=== PATIENT | male | born 1955 | race Caucasian/White ===

== ENCOUNTER 2017-05-25 19:13 | Observation (INO) | payer BC, SELFPAY ==
[2017-05-25 19:13] VITALS: BP 157/123; PULSE 117; RESP 16; TEMP 36.3; O2SAT 97; BMI 33.5
--- NOTE | 2017-05-25 19:23 | CT_ITS ---
STUDY: CT ABDOMEN AND PELVIS WITH CONTRAST REASON FOR EXAM: Male, 62 years old. Right lower quadrant pain and vomiting since last night. RADIATION DOSAGE (If Supplied By Facility): CTDIvol = ( 18.72 ) mGy, DLP = ( 1523.99 ) mGycm TECHNIQUE: Transaxial images were obtained from the dome of the diaphragm to the symphysis pubis with oral contrast. 100 ml of Isovue 300 contrast was administered. Sagittal and coronal images were reconstructed. Individualized dose optimization techniques were used for this CT. COMPARISON: None. FINDINGS: Bibasilar atelectatic changes. The visualized portions of the heart are within normal limits. Fatty liver Normal gallbladder and extrahepatic biliary system. Normal spleen. Normal pancreas. Normal bilateral adrenal glands. Normal right kidney. Normal left kidney. Normal visualized stomach. Normal small intestine. Diverticulosis of the colon without acute diverticulitis. Enlarged fluid-filled appendix with periappendiceal edema and nonloculated fluid of the right paracolic gutter. Minimal calcific plaque of the aorta. Normal inferior vena cava. Normal retroperitoneum. Normal urinary bladder. Minimal fatty umbilical hernia. Mild degenerative changes of the lower lumbar spine. CT/Abdomen/Pelvis WITH Contrast IMPRESSION: Enlarged appendix with periappendiceal edema consistent with acute appendicitis without abscess formation or free air. No additional acute abdominal or pelvic findings. Fatty liver. Minimal calcific plaque of the aorta. Minimal fatty umbilical hernia. Bibasilar pulmonary atelectatic changes. N.B. : The above information has been verbally conveyed by Sarah Beth Gordon MD to , Covering Physician, on 05/25/2017 22:52:54 (ET). Electronically Signed: Sarah Beth Gordon MD at 21:46 EST , Service support , N.B. : The above information has been verbally conveyed by Sarah Beth Gordon MD to , Covering Physician, on 05/25/2017 22:52:54 (ET).
--- NOTE | 2017-05-25 19:24 | ED.VISSUMM ---
- ER Visit Summary Date of Service: 05/25/17 Chief Complaint: Right lower quadrant abdominal pain History of Present Illness: The patient is a 62 M who is otherwise healthy presents to the emergency department with abdominal pain. The patient symptoms began last night. He states that he had dull ache like a band across his abdomen. He is mildly nauseated. He states that he ate and it seemed to make the pain worse. The pain is since migrated towards his right lower quadrant. He has had 2 episodes of vomiting today. He denies any fevers but does move to some chills. He has had no diarrhea. The patient has had no prior abdominal surgery, but has had lithotripsy for kidney stone. He states this does feel different. There is no pain in the testicles. He denies any dysuria or hematuria. Physical Examination: Vital signs reviewed General: Well-nourished, well-developed Head: Normocephalic, atraumatic Eyes: Pupils equal and reactive, extraocular muscles intact Neck, supple, no lymphadenopathy Heart: Regular rate and rhythm Respiratory: No distress, clear bilaterally Abdomen: Soft, tender with voluntary guarding in the right lower quadrant, nondistended, no peritoneal signs Back: Nontender Extremities: Nontender, no edema, no cords Skin: Normal color no rash Neuro: Alert and oriented, no focal or lateralizing deficits Test Results: [] Emergency Department Course and Treatment: The patient has signs and symptoms that are consistent with acute appendicitis. His labs do demonstrate psychosis. Patient underwent CT which based on my read is concerning for acute appendicitis. I did discuss the labs and results with Dr. Mack who agrees with plan for IV antibiotics and she will take the patient to the operating room for laparoscopic evaluation for acute appendicitis. Patient was covered with IV Zosyn. He will be taken to the operating room by surgery due to acute appendicitis. Treatment Plan: [] Disposition: Admit Impression: 1. Acute appendicitis This note was generated with [employer] dictation software. It may contain incorrect words, spelling, and punctuation that were not noted in review of the chart prior to signing ED Disposition - Plan for ED Patient: Chief Complaint: Abd Pain
[2017-05-25] MEDS: 0.9% Normal Saline 1,000 ML 1000 ML IV (19:47)
[2017-05-25] MEDS: Ondansetron 4 MG/2 ML Vial IV (19:49)
[2017-05-25 20:07] LABS: Absolute Lymphocyte Count 1.84 X10^3/ul (0.83-4.51); Absolute Neutrophil Count 14.6 X10^3/uL (2.0-7.7); Basophil# 0.01 X10^3/uL; Basophil% 0.1 % (0-1); Hematocrit 47.7 % (40-54); Hemoglobin 16.8 g/dl (13.0-16.5); Lymphocyte # 1.84 X10^3/ul (4.0); Lymphocyte % 10.2 % (19-41); Mean Corp Hgb Conc 35.2 g/gl (32-36); Mean Corpuscular Hgb 31.5 pg (27.0-32.0); Mean Corpuscular Volume 89.5 fL (80-94); Mean Platelet Vol. 10.2 fl (6.2-12.0); Monocyte% 8.9 % (0-10); Neutrophil # 14.55 X10^3/uL (2.7-7.7); Neutrophil % 80.6 % (47-70); Platelet Count 189 K/mm3 (150-450); RBC Distribution Width CV 12.8 % (11.6-14.6); RBC Distribution Width SD 41.5 fl (35.1-43.9); Red Blood Count 5.33 M/mm3 (4.6-6.2)
[2017-05-25 20:08] LABS: Differential Indicated SCAN CRITERIA MET; POSITIVE COUNT YES; POSITIVE DIFFERENTIAL YES; POSITIVE MORPHOLOGY NO
[2017-05-25 20:19] LABS: AST(SGOT) 13 U/L (15-37); Alanine Aminotransfer ALT/SGPT 41 U/L (16-61); Alkaline Phosphatase 95 U/L (45-117); Anion Gap 8 (5-15); BUN 15 mg/dL (7-18); BUN/Creat Ratio 16.3 RATIO (10-20); Calcium,Total 9.2 mg/dL (8.5-10.1); Chloride 104 mmol/L (98-107); Creatinine, Serum 0.92 mg/dL (0.70-1.30); EST Glomerular Filtration Rate 88 mL/min (>60); Est Glom Filt Rate - Afr Amer 107 mL/min (>60); Estimated Creatinine Clearance 87.53 ml/min; Globulin 4.1 g/dL (2.2-4.2); Glucose 118 mg/dL (74-106); Potassium 3.5 mmol/L (3.5-5.1); Protein, Total 8.1 g/dL (6.4-8.2); Sodium Level 139 mmol/L (136-145)
[2017-05-25 20:24] LABS: Anisocytosis RARE; Platelet Estimate ADEQUATE (ADEQ)
[2017-05-25] MEDS: HYDROmorphone 1 MG/ML Syringe IV (21:19)
[2017-05-25 21:21] VITALS: BP 148/80; PULSE 95; RESP 14; O2SAT 99
--- NOTE | 2017-05-25 21:36 | RAD_ITS ---
STUDY: X-RAY CHEST REASON FOR EXAM: Male, 62 years old. Cough. TECHNIQUE: 1 view COMPARISON: None. FINDINGS: Bibasilar linear atelectatic change, right greater than left. Negative for other substantial consolidation or pleural effusion. Normal size heart. Normal mediastinum and laisha. Normal visualized pulmonary arteries. There is atherosclerotic tortuosity of the aortic arch and descending thoracic aorta. There are diffuse degenerative changes of the visualized thoracic spine. Normal visualized ribs, clavicles, and shoulders. There is no demonstrated abnormality of the visualized soft tissue structures of the upper abdomen. RAD/Chest 1 View IMPRESSION: Bibasilar atelectatic changes, right greater than left without other acute cardiopulmonary findings. Electronically Signed: Sarah Beth Gordon MD at 22:35 EST , Service support ,
--- NOTE | 2017-05-25 21:36 | EKG12_ITS ---
Test Reason : Blood Pressure : / mmHG Vent. Rate : 096 BPM Atrial Rate : 096 BPM P-R Int : 178 ms QRS Dur : 104 ms QT Int : 366 ms P-R-T Axes : 034 049 -06 degrees QTc Int : 462 ms Normal sinus rhythm Nonspecific T wave abnormality Prolonged QT Abnormal ECG Confirmed by DAXA ZHU, GUY ([id number]), videotape editor TOYIN DEY ([id number]) on 05/29/2017 4:21:11 PM Referred By: Rosalba Mack Confirmed By:GUY MITTAL MD
[2017-05-25 21:58] LABS: Bacteria 0 SEEN /hpf (None Seen); Mucous, Urine 0 SEEN /hpf (<or=2+); Red Blood Cells-Urine 0 SEEN /hpf (0-5); Squamous Epithelial Cells - UA 0 SEEN /hpf (0-5); White Blood Cells 0 SEEN /hpf (0-5)
[2017-05-25 22:02] LABS: Color, Urine Yellow (Yellow); Glucose, Dipstick Normal (Normal); Ketone-Dipstick Negative (Negative); Leukocyte Esterase-Dipstick Negative /ul (Negative); Nitrite-Dipstick Negative (Negative); Occult Blood-Urine 25 /ul (Negative); Protein-Dipstick Negative (Negative); Urine Bilirubin Dipstick Negative (Negative); Urine Clarity Clear (Clear); Urine Urobilinogen Normal (Normal); Urine pH 6.5 (5.0 - 8.0)
--- NOTE | 2017-05-25 22:18 | PCM.HP.STD ---
History of Present Illness Date of Admission: 05/25/17 The patient is a 62 year old M presented to the ER due to right lower quadrant pain since this morning. However he he did have a pressure in his abdomen starting yesterday evening about 7 PM which lasted all night but did move to the right lower quadrant this morning. He did have nausea and vomiting. Denies fevers chills ?1. Has normal bowel movement this morning. Patient last ate at 7 PM last night. He denies any history of previous pain like this. He has never had a colonoscopy before. sister just had surgery for colon cancer at age 68. Past Medical History Allergies No Known Allergies Allergy (Verified 05/25/17 19:15) Home Medications: Ambulatory Orders Medication Instructions Recorded Hydrocodone Bitart/Apap 5-325 1 - 2 tablet PO Q4H PRN PRN 3 Days 05/26/17 [Jet 5MG-325MG] #20 tablet Surgical History: - - Right knee, lithotripsy Lives: Spouse/ Significant Other Smoking Status: Former smoker - *Family History Maternal History Items: No pertinent history Review of Systems Constitutional: Reports: Anorexia. Denies: Chills, Fever Eyes: Denies: Blurred vision HEENT: Denies: Difficulty Swallowing Cardiovascular: Denies: Chest Pain Respiratory: Denies: Shortness of Breath Gastrointestinal: Reports: Abdominal Pain, Nausea. Denies: Constipation, Vomiting Genitourinary: Denies: Dysuria Skin: Denies: Rash Neurological: Denies: Numbness, Tingling Psychiatric: Denies: Anxiety, Depression Hematologic/ Lymphatic: Denies: Easy Bruising, Easy Bleeding VTE Information - Inpt Only VTE Present on Admission: Yes VTE Mechan Device Prophylaxis: SCD's VTE Pharm Prophylaxis ordered?: No Reason prophylaxis not ordered:: Treatment Not Indicated - Physical Exam General: Alert, Oriented x3, Cooperative, No apparent distress HEENT: Atraumatic, Normocephalic Lungs: Clear to auscultation Cardiovascular: Regular rate, Regular Rhythm Abdomen: Soft, Non-Distended, Passing Flatus, Tender - Right lower quadrant, no rebound or guarding Extremities: No clubbing, No cyanosis, No edema Skin: No rashes Neurological: Cranial nerves II-XII grossly intact Psych/Mental Status: Normal Affect Vital Signs Temp Pulse Resp BP Pulse Ox 97.3 F L 95 14 148/80 H 99 05/25/17 19:13 05/25/17 21:21 05/25/17 21:21 05/25/17 21:21 05/25/17 21:21 Oxygen Delivery Method Room Air Weight: 240 lb Body Mass Index (BMI) 33.5 Laboratory Tests Past 24 Hrs 05/25/17 05/25/17 05/25/17 19:30 19:40 21:45 WBC 18.0 H RBC 5.33 Hgb 16.8 H Hct 47.7 MCV 89.5 MCH 31.5 MCHC 35.2 RDW 12.8 RDW Differential 41.5 Plt Count 189 MPV 10.2 Immature Gran % (Auto) 0.200 Neut % (Auto) 80.6 H Lymph % (Auto) 10.2 L [place] % (Auto) 8.9 Eos % (Auto) 0.0 Baso % (Auto) 0.1 Absolute Neuts (auto) 14.6 H Absolute Lymphs (auto) 1.84 Total Counted Not Reportable Differential Comment SEE COMMENT Diff Path Review May foll Platelet Estimate ADEQUATE Anisocytosis RARE Sodium 139 Potassium 3.5 Chloride 104 Carbon Dioxide 27.0 Anion Gap 8 BUN 15 Creatinine 0.92 Estim Creat Clear Calc 87.53 Est GFR (MDRD) Af Amer 107 Est GFR (MDRD) Non-Af 88 BUN/Creatinine Ratio 16.3 Glucose 118 H Calcium 9.2 Total Bilirubin 0.80 AST 13 L ALT 41 Alkaline Phosphatase 95 Total Protein 8.1 Albumin 4.0 Globulin 4.1 Albumin/Globulin Ratio 1.0 Urine Color Yellow Urine Clarity Clear Urine pH 6.5 Ur Specific [place] 1.010 Urine Protein Negative Urine Glucose (UA) Normal Urine Ketones Negative Urine Occult Blood 25 H Urine Nitrite Negative Urine Bilirubin Negative Urine Urobilinogen Normal Ur Leukocyte Esterase Negative Urine RBC Pending Urine WBC Pending Ur Squamous Epith Cells Pending Urine Bacteria Pending Urine Mucus Pending Assessment/Plan 62-year-old male with acute appendicitis and leukocytosis of 18 1. Discussed procedure laparoscopic appendectomy, possible open, possible bowel resection along with the risk but not limited to bleeding, infection/abscess, injury to another organ (small bowel, colon, etc.), adhesion, hernia at incision sites, and anesthesia. Patient has expressed understanding and had no further questions at this time. Rosalba Mack M.D. Pager: [phone] [facility] [address], [address] [place] [address] Office: [phone]
--- NOTE | 2017-05-25 22:21 | HP.PCM_ITS ---
History of Present Illness Date of Admission: 05/25/17 The patient is a 62 year old M presented to the ER due to right lower quadrant pain since this morning. However he he did have a pressure in his abdomen starting yesterday evening about 7 PM which lasted all night but did move to the right lower quadrant this morning. He did have nausea and vomiting. Denies fevers chills ?1. Has normal bowel movement this morning. Patient last ate at 7 PM last night. He denies any history of previous pain like this. He has never had a colonoscopy before. sister just had surgery for colon cancer at age 68. Past Medical History Allergies No Known Allergies Allergy (Verified 05/25/17 19:15) Home Medications: Ambulatory Orders Medication Instructions Recorded Hydrocodone Bitart/Apap 5-325 1 - 2 tablet PO Q4H PRN PRN 3 Days 05/26/17 [[place] 5MG-325MG] #20 tablet Surgical History: - - Right knee, lithotripsy Lives: Spouse/ Significant Other Smoking Status: Former smoker - *Family History Maternal History Items: No pertinent history Review of Systems Constitutional: Reports: Anorexia. Denies: Chills, Fever Eyes: Denies: Blurred vision HEENT: Denies: Difficulty Swallowing Cardiovascular: Denies: Chest Pain Respiratory: Denies: Shortness of Breath Gastrointestinal: Reports: Abdominal Pain, Nausea. Denies: Constipation, Vomiting Genitourinary: Denies: Dysuria Skin: Denies: Rash Neurological: Denies: Numbness, Tingling Psychiatric: Denies: Anxiety, Depression Hematologic/ Lymphatic: Denies: Easy Bruising, Easy Bleeding VTE Information - Inpt Only VTE Present on Admission: Yes VTE Mechan Device Prophylaxis: SCD's VTE Pharm Prophylaxis ordered?: No Reason prophylaxis not ordered:: Treatment Not Indicated - Physical Exam General: Alert, Oriented x3, Cooperative, No apparent distress HEENT: Atraumatic, Normocephalic Lungs: Clear to auscultation Cardiovascular: Regular rate, Regular Rhythm Abdomen: Soft, Non-Distended, Passing Flatus, Tender - Right lower quadrant, no rebound or guarding Extremities: No clubbing, No cyanosis, No edema Skin: No rashes Neurological: Cranial nerves II-XII grossly intact Psych/Mental Status: Normal Affect Vital Signs Temp Pulse Resp BP Pulse Ox 97.3 F L 95 14 148/80 H 99 05/25/17 19:13 05/25/17 21:21 05/25/17 21:21 05/25/17 21:21 05/25/17 21:21 Oxygen Delivery Method Room Air Weight: 240 lb Body Mass Index (BMI) 33.5 Laboratory Tests Past 24 Hrs 05/25/17 05/25/17 05/25/17 19:30 19:40 21:45 WBC 18.0 H RBC 5.33 Hgb 16.8 H Hct 47.7 MCV 89.5 MCH 31.5 MCHC 35.2 RDW 12.8 RDW Differential 41.5 Plt Count 189 MPV 10.2 Immature Gran % (Auto) 0.200 Neut % (Auto) 80.6 H Lymph % (Auto) 10.2 L [place] % (Auto) 8.9 Eos % (Auto) 0.0 Baso % (Auto) 0.1 Absolute Neuts (auto) 14.6 H Absolute Lymphs (auto) 1.84 Total Counted Not Reportable Differential Comment SEE COMMENT Diff Path Review May foll Platelet Estimate ADEQUATE Anisocytosis RARE Sodium 139 Potassium 3.5 Chloride 104 Carbon Dioxide 27.0 Anion Gap 8 BUN 15 Creatinine 0.92 Estim Creat Clear Calc 87.53 Est GFR (MDRD) Af Amer 107 Est GFR (MDRD) Non-Af 88 BUN/Creatinine Ratio 16.3 Glucose 118 H Calcium 9.2 Total Bilirubin 0.80 AST 13 L ALT 41 Alkaline Phosphatase 95 Total Protein 8.1 Albumin 4.0 Globulin 4.1 Albumin/Globulin Ratio 1.0 Urine Color Yellow Urine Clarity Clear Urine pH 6.5 Ur Specific [place] 1.010 Urine Protein Negative Urine Glucose (UA) Normal Urine Ketones Negative Urine Occult Blood 25 H Urine Nitrite Negative Urine Bilirubin Negative Urine Urobilinogen Normal Ur Leukocyte Esterase Negative Urine RBC Pending Urine WBC Pending Ur Squamous Epith Cells Pending Urine Bacteria Pending Urine Mucus Pending Assessment/Plan 62-year-old male with acute appendicitis and leukocytosis of 18 1. Discussed procedure laparoscopic appendectomy, possible open, possible bowel resection along with the risk but not limited to bleeding, infection/ abscess, injury to another organ (small bowel, colon, etc.), adhesion, hernia at incision sites, and anesthesia. Patient has expressed understanding and had no further questions at this time. Rosalba Mack M.D. Pager: [phone] [facility] [address], [address] [place] [address] Office: [phone]
[2017-05-25 22:30] VITALS: BP 149/80; PULSE 90; RESP 14; TEMP 36.4; O2SAT 99; BMI 33.5
--- NOTE | 2017-05-25 22:50 | APP_PTH ---
PATIENT: SARAH PALMER LOC: MS3 U#:[id number] AGE/SX: 62/M ROOM: [facility] [place] RE05/25/[address]: Dr. Rosalba Mack MD : [id number] BED: 1 DIS: 05/26/2017 SPEC #: [id number] RECD: 05/28/17 08:30 STATUS: BENNY RETip #: [id number] LISA: 05/25/17 22:[address]: Rosalba Mack DEPT: SURGICAL PATHOLOGY RECD BY: Sarah Stacy ENTERED: 05/28/17 09:24 SP TYPE: APPENDIX OTHR DR: Dr. David Wagoner, DO Tissues: Appendix, NOS Procedures: Surgery Specimen Level III HEADER OPERATION: Laparoscopic appendectomy PRE-OP DIAGNOSIS: Acute appendicitis TISSUE SUBMITTED: Appendix MICROSCOPIC DIAGNOSIS Appendix, appendectomy: Acute necrotizing appendicitis. Acute serositis. AM:janie 05/29/17 MICROSCOPIC DESCRIPTION Slides are reviewed. GROSS DESCRIPTION Received is one container labeled with the patient's name and designated appendix. The specimen consists of a V-shaped appendix measuring 8 cm in length and up to 1 cm in average diameter. The attached periappendiceal adipose tissue measures up to 2 cm in width. The serosa is congested and covered with granda, purulent exudate. The mucosa is congested and hemorrhagic. The lumen does not contain any fecalith. Hand Outside Cutter sections are submitted in two cassettes. / SJ:janie 05/28/17 TC:2 CPT: 09977
--- NOTE | 2017-05-25 23:52 | PCM.OPRPT ---
Report of Operation Date of Procedure: 05/25/17 Pre-Operative Diagnosis: Acute appendicitis Post-Operative Diagnosis: Acute necrotizing appendicitis Surgery/Procedure Performed:: Laparoscopic appendectomy die designer: Kady Sorto Type of Anesthesia:: General Anesthesiologist: Ji Jaimes Special Medications: Zosyn 4.5 g IV ?1 given previously for acute appendicitis in the ER Specimen's removed: Appendix Estimated Blood Loss (mL): <10 cc Fluids Replaced: 500 cc Description of Procedure: Indications: 62-year-old male presented to the ER with new right lower quadrant pain yesterday evening. On workup he was found to have acute appendicitis on CT and a leukocytosis of 18. Patient was started on antibiotics in the ER for acute appendicitis-Zosyn 4.5 g IV ?1 Description of the procedure: The patient was placed on operating table in supine position. General anesthesia was induced. A timeout was completed verifying correct patient, procedure, sacrum position and special, prior to beginning procedure. A Stratton catheter and orogastric tube placed. Abdomen was prepped and draped in usual sterile fashion. Incision was made in the natural skin line above the umbilicus with a 15 blade scalpel. The fascia was elevated and incised. Entry into the peritoneum was confirmed visually and no bowel was noted in the vicinity of the incision. The Campbell trocar was placed under direct vision. Abdomen insufflated with a pressure of 12-15 mmHg. Patient tolerated insertion well. The scope was inserted and the abdomen inspected. No injuries from initial trocar placement were noted. Minimal amount of fluid was seen in the right lower quadrant. An direct visualization 2 -5 mm trocars were placed one above the symptoms his pubis and below the hairline and one in the left lower quadrant lateral to the rectus muscle. Care is taken to avoid injury to the bladder and inferior epigastric vessels. The table was placed in Trendelenburg position with the right side elevated. The appendix was grasped with atraumatic grasper and elevated. It was noted to be inflamed and necrotic centrally, no obvious perforation grossly. A window was developed in the mesoappendix at the point between the base of the appendix and the cecum. An endoscopic 45 mm linear cutting stapler blue load was then used to divide and staple the base of the appendix. The LigaSure was used to divide the mesoappendix. The appendix was withdrawn into the Campbell trocar after being placed endoscopically retrieval bag. Appendix was sent to pathology. The appendiceal stump was then irrigated and hemostasis was assured. Fluid was suctioned, no other pathology was identified. Secondary trochars were removed under direct visualization. No bleeding was noted trocar sites. The laparoscope withdrawn and the umbilical trocar removed. The abdomen was allowed to collapse. Local anesthesia of 15 mL of 0.5% Marcaine was used at the incision sites. The umbilical trocar site was closed with the [id number] 0 Vicryl suture. The skin was closed up to clear sutures of 4-0 Monocryl and Steri-Strips. The patient was extubated. The patient tolerated the procedure well and was taken to the postanesthesia care unit in satisfactory condition. - Complications none
[2017-05-25] MEDS: Bupivacaine 0.25% 30 ML Vial (23:53)
--- NOTE | 2017-05-25 23:56 | OP.PCM_ITS ---
Report of Operation Date of Procedure: 05/25/17 Pre-Operative Diagnosis: Acute appendicitis Post-Operative Diagnosis: Acute necrotizing appendicitis Surgery/Procedure Performed:: Laparoscopic appendectomy guest request runner: Kady Sorto Type of Anesthesia:: General Anesthesiologist: Ji Jaimes Special Medications: Zosyn 4.5 g IV ?1 given previously for acute appendicitis in the ER Specimen's removed: Appendix Estimated Blood Loss (mL): <10 cc Fluids Replaced: 500 cc Description of Procedure: Indications: 62-year-old male presented to the ER with new right lower quadrant pain yesterday evening. On workup he was found to have acute appendicitis on CT and a leukocytosis of 18. Patient was started on antibiotics in the ER for acute appendicitis-Zosyn 4.5 g IV ?1 Description of the procedure: The patient was placed on operating table in supine position. General anesthesia was induced. A timeout was completed verifying correct patient, procedure, sacrum position and special, prior to beginning procedure. A Stratton catheter and orogastric tube placed. Abdomen was prepped and draped in usual sterile fashion. Incision was made in the natural skin line above the umbilicus with a 15 blade scalpel. The fascia was elevated and incised. Entry into the peritoneum was confirmed visually and no bowel was noted in the vicinity of the incision. The Campbell trocar was placed under direct vision. Abdomen insufflated with a pressure of 12-15 mmHg. Patient tolerated insertion well. The scope was inserted and the abdomen inspected. No injuries from initial trocar placement were noted. Minimal amount of fluid was seen in the right lower quadrant. An direct visualization 2 -5 mm trocars were placed one above the symptoms his pubis and below the hairline and one in the left lower quadrant lateral to the rectus muscle. Care is taken to avoid injury to the bladder and inferior epigastric vessels. The table was placed in Trendelenburg position with the right side elevated. The appendix was grasped with atraumatic grasper and elevated. It was noted to be inflamed and necrotic centrally, no obvious perforation grossly. A window was developed in the mesoappendix at the point between the base of the appendix and the cecum. An endoscopic 45 mm linear cutting stapler blue load was then used to divide and staple the base of the appendix. The LigaSure was used to divide the mesoappendix. The appendix was withdrawn into the Campbell trocar after being placed endoscopically retrieval bag. Appendix was sent to pathology. The appendiceal stump was then irrigated and hemostasis was assured. Fluid was suctioned, no other pathology was identified. Secondary trochars were removed under direct visualization. No bleeding was noted trocar sites. The laparoscope withdrawn and the umbilical trocar removed. The abdomen was allowed to collapse. Local anesthesia of 15 mL of 0.5 % Marcaine was used at the incision sites. The umbilical trocar site was closed with the [id number] 0 Vicryl suture. The skin was closed up to clear sutures of 4-0 Monocryl and Steri-Strips. The patient was extubated. The patient tolerated the procedure well and was taken to the postanesthesia care unit in satisfactory condition. - Complications none
[2017-05-26] VITALS (9 sets, daily range): BP systolic 118–163; BP diastolic 59–85; PULSE 92–112; RESP 16–18; TEMP 36.4–37.2; O2SAT 93–98; BMI 33.5; BMI 35.3
[2017-05-26] MEDS: Lactated Ringers 1,000 ML 125 ML IV (01:15)
[2017-05-26] MEDS: Piperacil/Tazobactam 3.375 GM/50 ML ML IV (05:07)
--- NOTE | 2017-05-26 08:04 | PCM.PN.SRG ---
Subjective: Patient is doing well, tolerating regular breakfast, states that the abdomen is sore but the pain from before surgery is gone he has not needed any pain meds. - Physical Exam General: Alert, Oriented x3, Cooperative, No apparent distress Abdomen: Soft, Non-Distended, Tender - Appropriate near incisions, incision was dressed, - - No guarding or rebound Vital Signs Temp Pulse Resp BP Pulse Ox 98.6 F 92 18 146/85 H 94 05/26/17 07:55 05/26/17 07:55 05/26/17 07:55 05/26/17 07:55 05/26/17 07:55 Oxygen Flow Rate 2 Oxygen Delivery Method Room Air Weight: 253 lb 1.451 oz Body Mass Index (BMI) 35.3 Intake and Output for Last 24 Hours 05/24/17 05/25/17 05/26/17 23:59 23:59 23:59 Intake Total 1576 / 1576 Output Total 600 / 600 Balance 976 / 976 Assessment/Plan 62-year-old male status post endoscopic appendectomy postop day 1 1. Patient tolerated regular diet, no need for pain meds currently per patient. 2. Encourage ambulation 3. Okay for discharge after patient tolerated diet pain control and ambulating and vital signs remained stable. 4. Will follow-up in 2 weeks and also discussed future colonoscopy as patient has not had a colonoscopy in his sister at age 68 was just diagnosed with colon cancer and had it removed. Discussed colonoscopy in the future and patient was agreeable to the idea currently. Rosalba Mack M.D. Pager: [phone] [facility] [address] [place] [address], [address] [place] [address] Office: [phone]
[2017-05-26] MEDS: Docusate Sodium 100 MG Capsule PO (08:05)
--- NOTE | 2017-05-26 08:07 | PN.SURG_ITS ---
Subjective: Patient is doing well, tolerating regular breakfast, states that the abdomen is sore but the pain from before surgery is gone he has not needed any pain meds. - Physical Exam General: Alert, Oriented x3, Cooperative, No apparent distress Abdomen: Soft, Non-Distended, Tender - Appropriate near incisions, incision was dressed, - - No guarding or rebound Vital Signs Temp Pulse Resp BP Pulse Ox 98.6 F 92 18 146/85 H 94 05/26/17 07:55 05/26/17 07:55 05/26/17 07:55 05/26/17 07:55 05/26/17 07:55 Oxygen Flow Rate 2 Oxygen Delivery Method Room Air Weight: 253 lb 1.451 oz Body Mass Index (BMI) 35.3 Intake and Output for Last 24 Hours 05/24/17 05/25/17 05/26/17 23:59 23:59 23:59 Intake Total 1576 / 1576 Output Total 600 / 600 Balance 976 / 976 Assessment/Plan 62-year-old male status post endoscopic appendectomy postop day 1 1. Patient tolerated regular diet, no need for pain meds currently per patient. 2. Encourage ambulation 3. Okay for discharge after patient tolerated diet pain control and ambulating and vital signs remained stable. 4. Will follow-up in 2 weeks and also discussed future colonoscopy as patient has not had a colonoscopy in his sister at age 68 was just diagnosed with colon cancer and had it removed. Discussed colonoscopy in the future and patient was agreeable to the idea currently. Rosalba Mack M.D. Pager: [phone] [facility] [address] [place] [address], [address] [place] [address] Office: [phone]
--- NOTE | 2017-05-26 08:07 | PCM.DC.APPY ---
Discharge Diet: No Restrictions Discharge Activity: May not drive while taking narcotic pain medications. May shower in (days): 1 Lifting Restrictions: no lifting > 20 lbs for 4 weeks Call your doctor if your incision/area has: Continuous Slow Oozing, Sudden Increased Bleeding, Increased Pain/ Swelling, Increased Redness, Foul Smelling Discharge, Swelling at the incision site Call your doctor if you observe: Fever of 101 or Higher Remove Dressing in (days):: 1 Additional Instructions: To avoid constipation take Colace daily for the first few days or while taking pain meds. The [place] does contain Tylenol still do not take any Tylenol while taking the [place]. However he may take ibuprofen or Advil in between doses but make sure he take with food. If he did not have a bowel movement and a day then take a couple doses of MiraLAX to see if that has any results. If no results after taking a few doses of MiraLAX then proceeded to take half a bottle of magnesium citrate if no results after 6 hours and take the other half. Medications to take at Discharge Hydrocodone Bitart/Apap 5-325 [[place] 5MG-325MG] 1 - 2 tablet PO Q4H PRN PRN 3 Days #20 tablet 05/26/17 Allergies/Adverse Reactions: Allergies No Known Allergies Allergy (Verified 05/25/17 19:15) The following prescriptions were given: Hydrocodone Bitart/Apap 5-325 [[place] 5MG-325MG] 1 - 2 tablet PO Q4H PRN PRN 3 Days #20 tablet PRN Reason: Pain Primary Care Physician: David Wagoner DO [Primary Care Provider] - Please Follow Up With: Rosalba Mack MD - After 5:00/weekends call [phone] with any concerns When: Call the office [phone] on Sunday for follow-up appointment in 2 weeks Proposed Discharge Date: 05/26/17
--- NOTE | 2017-05-26 08:10 | DCINST_ITS ---
Discharge Diet: No Restrictions Discharge Activity: May not drive while taking narcotic pain medications. May shower in (days): 1 Lifting Restrictions: no lifting > 20 lbs for 4 weeks Call your doctor if your incision/area has: Continuous Slow Oozing, Sudden Increased Bleeding, Increased Pain/ Swelling, Increased Redness, Foul Smelling Discharge, Swelling at the incision site Call your doctor if you observe: Fever of 101 or Higher Remove Dressing in (days):: 1 Additional Instructions: To avoid constipation take Colace daily for the first few days or while taking pain meds. The [place] does contain Tylenol still do not take any Tylenol while taking the [place]. However he may take ibuprofen or Advil in between doses but make sure he take with food. If he did not have a bowel movement and a day then take a couple doses of MiraLAX to see if that has any results. If no results after taking a few doses of MiraLAX then proceeded to take half a bottle of magnesium citrate if no results after 6 hours and take the other half. Medications to take at Discharge Hydrocodone Bitart/Apap 5-325 [[place] 5MG-325MG] 1 - 2 tablet PO Q4H PRN PRN 3 Days #20 tablet 05/26/17 Allergies/Adverse Reactions: Allergies No Known Allergies Allergy (Verified 05/25/17 19:15) The following prescriptions were given: Hydrocodone Bitart/Apap 5-325 [[place] 5MG-325MG] 1 - 2 tablet PO Q4H PRN PRN 3 Days #20 tablet PRN Reason: Pain Primary Care Physician: David Wagoner DO [Primary Care Provider] - Please Follow Up With: Rosalba Mack MD - After 5:00/weekends call [phone] with any concerns When: Call the office [phone] on Sunday for follow-up appointment in 2 weeks Proposed Discharge Date: 05/26/17
[2017-05-26] MEDS: HYDROcodone Bitartrate/Apap 5/325 Tablet PO (09:26)
[2017-05-28 13:16] LABS: Pathologist Review Reviewed
== END 2017-05-26 09:55 | disposition home or self-care (01) ==
LOC: ED 21:55 → SDC 22:09 → MS3 22:09 → SDC 05-26 02:21
PROVIDERS: Admitting Provider Surgery; Emergency Provider Emergency Medicine; Family Provider Family Medicine; PCP Family Medicine; Visit Provider Surgery
PROC: 0DTJ4ZZ Resection of Appendix, Percutaneous Endoscopic Approach (ICD-10-PCS; CPT 44970; principal; 2017-05-25 22:30)
DX: K35.80 Unspecified acute appendicitis (principal); Z87.891 Personal history of nicotine dependence
CPT/HCPCS: 44970; 71045; 74177; 80053; 81001; 85025; 88304; 93005; 96361; 96365; 96366; 96375; 99218; 99282; J3010; J7030; J7120; Q9967; A4216; G0378; J2405

== ENCOUNTER → 2017-09-13 16:32 | Outpatient (CLI) | payer BC, SELFPAY ==
[2017-09-13 17:45] LABS: Erythrocyte Sedimentation Rate 24 mm/hr (0-20)
[2017-09-13 18:01] LABS: CPK Total, Creatine Kinase 33 U/L (39-308); Cholesterol 143 mg/dL (200); High Density Lipoprotein 36 mg/dL; Rheumatoid Factor < 10.0 IU/mL (<15); Triglycerides 110 mg/dL; Very Low Density Lipoprotein 22 mg/dL (5-40)
[2017-09-17 17:49] LABS: ANTINUCLEAR ANTIBODIES DIRECT Negative (Negative)
[2017-09-18 12:02] LABS: CCP IgG Antibodies 24 units (0-19)
== END ==
PROVIDERS: Family Provider Family Medicine; PCP Family Medicine; Visit Provider Family Medicine
DX: Z00.01 Encounter for general adult medical examination with abnormal findings (principal); R03.0 Elevated blood-pressure reading, without diagnosis of hypertension; M25.50 Pain in unspecified joint; Z12.5 Encounter for screening for malignant neoplasm of prostate
CPT/HCPCS: 36415; 80061; 82550; 84153; 85652; 86038; 86140; 86200; 86225; 86235; 86431; G0103

== ENCOUNTER → 2019-03-14 14:51 | Outpatient (CLI) | payer MEDICARE, OTHER, SELFPAY ==
[2019-03-14 17:29] LABS: Absolute Lymphocyte Count 1.69 X10^3/uL (0.83-4.51); Absolute Neutrophil Count 5.5 X10^3/uL (2.0-7.7); Basophil# 0.03 X10^3/uL; Basophil% 0.4 % (0-1); Eosinophil# 0.01 X10^3/uL; Eosinophils% 0.1 % (0-5); Hematocrit 52.7 % (40-54); Hemoglobin 17.1 g/dL (13.0-16.5); Lymphocyte # 1.69 X10^3/ul (4.0); Lymphocyte % 21.7 % (19-41); Mean Corp Hgb Conc 32.4 g/dL (32-36); Mean Corpuscular Hgb 29.4 pg (27.0-32.0); Mean Corpuscular Volume 90.7 fL (80-94); Mean Platelet Vol. 11.2 fl (6.2-12.0); Monocyte# 0.53 X10^3/uL; Monocyte% 6.8 % (0-10); NRBC Flagged by Analyzer 0 % (0-5); Neutrophil % 70.7 % (47-70); Platelet Count 193 K/mm3 (150-450); RBC Distribution Width CV 12.7 % (11.6-14.6); RBC Distribution Width SD 42.1 fl (35.1-43.9); Red Blood Count 5.81 M/mm3 (4.6-6.2); White Blood Count 7.8 K/mm3 (4.4-11.0)
[2019-03-14 17:51] LABS: ALB/GLOB Ratio 1.1 RATIO (0.9-2.4); AST(SGOT) 27 U/L (15-37); Alanine Aminotransfer ALT/SGPT 55 U/L (16-61); Albumin, Serum 4.2 g/dL (3.2-5.0); Alkaline Phosphatase 101 U/L (45-117); Anion Gap 5 (5-15); BUN 12 mg/dL (7-18); BUN/Creat Ratio 12.3 RATIO (10-20); CRP < 2.90 mg/L (0.0-3.0); Calcium,Total 9.1 mg/dL (8.5-10.1); Chloride 107 mmol/L (98-107); Creatinine, Serum 0.97 mg/dL (0.70-1.30); EST Glomerular Filtration Rate 82 mL/min (>60); Est Glom Filt Rate - Afr Amer 100 mL/min (>60); Globulin 3.7 g/dL (2.2-4.2); Glucose 107 mg/dL (74-106); Potassium 4.1 mmol/L (3.5-5.1); Protein, Total 7.9 g/dL (6.4-8.2); Sodium Level 138 mmol/L (136-145)
== END ==
PROVIDERS: Family Provider Family Medicine; PCP Family Medicine; Visit Provider Family Medicine
DX: R22.2 Localized swelling, mass and lump, trunk (principal)
CPT/HCPCS: 36415; 80053; 85025; 86140

== ENCOUNTER → 2019-03-25 08:38 | Outpatient (CLI) | payer MEDICARE, BC, OTHER, SELFPAY ==
--- NOTE | 2019-03-25 08:41 | US_ITS ---
STUDY: Soft tissue ULTRASOUND REASON FOR EXAM: Male, 64 years old. LT SUPRACLAVICULAR FOSSA - PAIN W/PROMINENCE R/O ADENOPATHY TECHNIQUE: Ultrasound evaluation of the left supraclavicular soft tissues was performed with real-time and static granda-scale imaging. COMPARISON: None. FINDINGS: There is small, reniform shaped lymph node with central echogenic laisha. The largest lymph node measures 1.0 cm in short axis. No dominant kathy mass. There are hypoechoic isoechoic nodules in the bilateral thyroid lobes measuring up to 1.4 cm on the left side. US/Ext Non Vasc Limited/Soft Tiss IMPRESSION: 1. Reactive appearing lymph nodes of the left supraclavicular region without dominant kathy mass. 2. Bilateral thyroid nodules measuring up to 1.4 cm on the left side. Dedicated thyroid ultrasound is suggested. Electronically Signed: Quoc Alex MD (Brooks) at 16:06 EST , Service support ,
== END ==
PROVIDERS: Family Provider Family Medicine; PCP Family Medicine; Referring Provider Family Medicine; Visit Provider Family Medicine
DX: R22.2 Localized swelling, mass and lump, trunk (principal)
CPT/HCPCS: 76882

== ENCOUNTER → 2019-03-28 13:16 | Outpatient (CLI) | payer MEDICARE, BC, OTHER, SELFPAY ==
[2019-03-28 15:51] LABS: T4 Free Direct 1.04 ng/dL (0.76-1.46); Thyroid Stim Hormone (TSH) 1.56 uIU/mL (0.358-3.74)
== END ==
LOC: LAB.FUTURE 13:20 → BFHLAB 13:20
PROVIDERS: Family Provider Family Medicine; PCP Family Medicine; Visit Provider Family Medicine
DX: E04.1 Nontoxic single thyroid nodule (principal)
CPT/HCPCS: 36415; 84439; 84443; 84481

== ENCOUNTER → 2019-04-01 10:42 | Outpatient (CLI) | payer MEDICARE, OTHER, BC, SELFPAY ==
--- NOTE | 2019-04-01 10:46 | US_ITS ---
STUDY: THYROID ULTRASOUND REASON FOR EXAM: Male, 64 years old. NODULE SEEN ON NECK ULTRASOUND TECHNIQUE: Ultrasound evaluation of the thyroid was performed with real-time and static granda-scale imaging. COMPARISON: None. FINDINGS: RIGHT LOBE: The right lobe of the thyroid gland measures 4.6 x 1.8 x 1.7 cm. There is a homogeneous echotexture. There is a 1.1 x 0.8 x 0.6 cm isoechoic lower pole solid nodule. There is a 0.5 x 0.4 x 0.3 cm upper pole cystic nodule. There is a 1.0 x 0.9 x 0.6 cm solid lower pole hypoechoic nodule. LEFT LOBE: The left lobe of the thyroid gland measures 3.9 x 1.7 x 1.4 cm. There is a homogeneous echotexture. There is a 1.1 x 1.0 x 0.9 cm solid hypoechoic nodule of the mid pole. There is a 0.4 x 0.3 x 0.3 cm cystic nodule. ISTHMUS: The isthmus measures 0.4 centimeter. US/Thyroid IMPRESSION: Normal size of the thyroid bilaterally with generally homogeneous parenchyma with multiple solid or cystic nodules as listed above. The largest nodule on the right is a solid largely isoechoic nodule measuring 1.1 x 0.8 x 0.6 cm. The largest nodule on the left is a solid hypoechoic nodule measuring 1.1 x 1.0 x 0.9 cm. Electronically Signed: Sarah Beth Gordon MD at 22:56 EST , Service support ,
== END ==
PROVIDERS: Family Provider Family Medicine; PCP Family Medicine; Referring Provider Family Medicine; Visit Provider Family Medicine
DX: E04.1 Nontoxic single thyroid nodule (principal)
CPT/HCPCS: 76536

== ENCOUNTER → 2020-05-14 08:54 | Outpatient (CLI) | payer MEDICARE, BC, OTHER, SELFPAY ==
--- NOTE | 2020-05-14 08:59 | US_ITS ---
STUDY: ABDOMINAL ULTRASOUND - RIGHT UPPER QUADRANT REASON FOR VISIT: Male, 65 years old ruq pain TECHNIQUE: Ultrasound evaluation of the right upper quadrant was performed with real-time and static granda-scale imaging. TECHNICAL QUALITY: Adequate. COMPARISON: None. FINDINGS: Liver: The liver is mildly enlarged and measures 18.5 cm. There is increased echogenicity consistent with fatty infiltration. Focal fatty sparing is seen in the region of the gallbladder fossa. The bile ducts are within normal limits. There is hepatic color flow. The direction of portal flow is hepatopetal. There is no demonstrated mass lesion. Gallbladder: Normal distended gallbladder. The gallbladder wall measures 3 mm. There is a negative sonographic Mancia''s sign. There is no pericholecystic fluid. There are no gallstones. Common Bile Duct (C.B.D.): The common bile duct measures 5 mm. Pancreas: Normal size of the head, body and tail of the pancreas. There is increased echogenicity of the pancreas. There is no demonstrated pancreatic mass or cyst. Right Kidney: Normal size of the right kidney. The right kidney measures 14.6 cm x 6.6 cm x 6.4 cm. Normal renal cortex. The right cortex measures 1.8 cm. There is no demonstrated renal mass or cyst. There is no right hydronephrosis. US/Abdomen Limited IMPRESSION: Mild hepatomegaly. Fatty infiltration of the liver. Electronically Signed: Niles Baires MD at 12:04 EST , Service support ,
== END ==
PROVIDERS: PCP Family Medicine; Referring Provider Family Medicine; Visit Provider Family Medicine
DX: R10.11 Right upper quadrant pain (principal)
CPT/HCPCS: 76705

== ENCOUNTER 2020-05-24 09:15 | Day surgery (SDC) | payer MEDICARE, OTHER, BC, SELFPAY ==
[2020-05-18 09:36] VITALS: BMI 35.5
[2020-05-24] VITALS (9 sets, daily range): BP systolic 77–143; BP diastolic 61–86; PULSE 89–121; RESP 16; TEMP 36.2–36.6; O2SAT 93–99; BMI 35.3
--- NOTE | 2020-05-24 | COLBX_PTH ---
PATIENT: SARAH PALMER LOC: EN U#:[id number] AGE/SX: 65/M ROOM: RE05/24/[address]: Dr. Rosalba Mack MD : 1955 BED: DIS: 05/24/2020 SPEC #: [id number] RECD: 05/24/20 13:01 STATUS: BENNY TERRI #: [id number] LISA: 05/24/20 00:[address]: Rosalba Mack DEPT: SURGICAL PATHOLOGY RECD BY: Toni Boyer ENTERED: 05/24/20 13:03 SP TYPE: COLON BX OTHR DR: Dr. David Wagoner DO Tissues: A - Cecum, NOS B - Ascending colon C - Ascending colon D - COLON BIOPSY E - Transverse colon F - Descending colon G - Sigmoid colon biopsy H - Sigmoid colon biopsy I - Sigmoid colon biopsy J - Sigmoid colon biopsy K - Rectum, NOS Procedures: Surgery Specimen Level IV HEADER OPERATION: Colonoscopy (MAC) PRE-OP DIAGNOSIS: Bright red blood per rectum TISSUE SUBMITTED: A - Biopsy of ileocecal valve/cecum mass, B - Ascending colon polyp snare - incomplete, C - Ascending colon polyp biopsy #2, D - Hepatic flexure polyps snare x3, E - Transverse polyp snare, F - Descending polyp snare x3, G - Sigmoid polyp at 40 cm snare, H - Sigmoid polyp at 23 cm snare, I - Sigmoid polyp at 23 cm stalk, on narrower side, J - Sigmoid polyp at 23 cm base, K - Rectal polyp x2 MICROSCOPIC DIAGNOSIS A. Ileocecal valve/cecum mass, biopsy: Fragments of tubulovillous adenoma. Negative for carcinoma. See comment. B. Ascending colon polyp, biopsy: Fragments of villous adenoma. C. Ascending colon polyp #2, biopsy: Fragments of tubulovillous adenoma. D. Hepatic flexure polyp, biopsy: Fragments of tubular adenoma. E. Transverse colon polyp, biopsy: Fragments of tubular adenoma. F. Descending colon polyp, biopsy: Fragments of tubular adenoma. G. Sigmoid colon polyp at 40 cm, biopsy: Fragments of tubulovillous adenoma. H. Sigmoid colon polyp at 23 cm, biopsy: Fragments of tubulovillous adenoma with high-grade dysplasia. I. Sigmoid colon polyp at 23 cm, biopsy: A benign mucosal polyp with focal minimal hyperplastic changes. Negative for adenomatous changes. J. Sigmoid colon polyp at 23 cm, base, biopsy: Colonic tissue consistent with base, negative for adenomatous changes. Fragments of tubulovillous adenoma. K. Rectal polyp x2, biopsy: Fragments of tubulovillous adenoma. Hyperplastic polyp. SJ:janie 05/25/2020 COMMENT A. If there is high suspicion of malignancy, re-biopsy is suggested if clinically indicated. MICROSCOPIC DESCRIPTION Slides are reviewed. GROSS DESCRIPTION A - Received in fixative is one container labeled with the patient's name and designated biopsy of ileocecal valve/cecum mass. The specimen consists of multiple irregular fragments of light almanzar soft tissue that in aggregate measure 1 x 0.3 x 0.1 cm. The specimen is totally submitted in one cassette. B - Received in fixative is one container labeled with the patient's name and designated ascending colon polyp snare. The specimen consists of multiple irregular fragments of light almanzar soft tissue that in aggregate measure 1 x 0.2 x 0.1 cm. The specimen is totally submitted in one cassette. C - Received in fixative is one container labeled with the patient's name and designated ascending colon polyp biopsy. The specimen consists of multiple irregular fragments of light almanzar soft tissue that in aggregate measure 1 x 0.3 x 0.1 cm. The specimen is totally submitted in one cassette. D - Received in fixative is one container labeled with the patient's name and designated hepatic flexure polyp snare. The specimen consists of multiple irregular fragments of almanzar soft tissue that in aggregate measure 2 x 1 x 0.2 cm. The specimen is totally submitted in one cassette. E - Received in fixative is one container labeled with the patient's name and designated transverse polyp. The specimen consists of multiple irregular fragments of light almanzar soft tissue that in aggregate measure 2.5 x 0.5 x 0.2 cm. The specimen is totally submitted in one cassette. F - Received in fixative is one container labeled with the patient's name and designated descending polyp. The specimen consists of multiple fragments of almanzar-pink polyp that in aggregate measure 1.5 x 1.5 x 0.3 cm. The specimen is totally submitted in one cassette. G - Received in fixative is one container labeled with the patient's name and designated sigmoid colon polyp at 40 cm. The specimen consists of multiple irregular fragments of light almanzar soft tissue that in aggregate measure 1.5 x 1.5 x 0.3 cm. The specimen is totally submitted in one cassette. H - Received in fixative is one container labeled with the patient's name and designated sigmoid polyp at 23 cm. The specimen consists of a almanzar-pink polyp measuring 1.8 x 1.5 x 1 cm. The apparent base is inked. The polyp is serially sectioned. Also present in the container are multiple fragments of almanzar soft tissue measuring in aggregate 2 x 2 x 0.3 cm. The entire specimen is submitted in two cassettes. Cassette 2 contains the serially sectioned polyp. I - Received in fixative is one container labeled with the patient's name and designated sigmoid polyp at 23 cm. The specimen consists of a pink-red polyp measuring 0.7 x 0.5 x 0.5 cm. The apparent base is inked. The polyp is bisected and submitted entirely in one cassette. J - Received in fixative is one container labeled with the patient's name and designated sigmoid polyp at 23 cm base. The specimen consists of a piece of almanzar-pink tissue consistent with base measuring 0.7 x 0.7 x 0.3 cm. it is inked and serially sectioned. Also present in the container are multiple smaller fragments of soft tissue that in aggregate measure 0.7 x 0.7 x 0.1 cm. The entire specimen is submitted in two cassettes as follows: 1 - piece of tissue consistent with base, 2 - multiple smaller fragments. K - Received in fixative is one container labeled with the patient's name and designated rectal polyp x2. The specimen consists of multiple irregular fragments of light almanzar soft tissue that in aggregate measure 1 x 0.5 x 0.1 cm. The specimen is totally submitted in one cassette. / SJ:rg 05/24/20 TC:1 CPT: 89724 x11
[2020-05-24] MEDS: Lactated Ringers 1,000 ML 100 ML IV ×2 (09:30→13:30)
--- NOTE | 2020-05-24 09:54 | HP.PCM_ITS ---
History and Physical Date of Admission: 05/24/20 Date of Service: 05/18/20 MR#: [id number] Acct: [id number] Name: SARAH PALMER Rep #: [id number] : 1955 Provider: Dr. 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: No Is patient in pain?: No Allergies No Known Allergies Allergy (Verified 05/18/20 09:37) Medications lorazepam 1 mg tablet 1 mg PO Q12H PRN tab 05/18/20 [History Confirmed 05/18/20] PFSH Medical History Anxiety (Acute) Appendicitis (Acute) IBS (irritable bowel syndrome) (Acute) Multiple thyroid nodules (Acute) PMR (polymyalgia rheumatica) (Acute) Renal calculi (Acute) Surgical History History of arthroscopy of right knee (Acute ~1980) Hx of appendectomy (Acute ~2017) Family History Sister Colon cancer Diabetes Mother Colon cancer, Onset Age: 65 Father CAD (coronary artery disease) Social History (Updated 05/18/20 @ 11:[address] Rosalba Mack MD) Smoking Status: Former smoker HPI HPI HPI: SARAH PALMER, is a 65 M who presents to the office today for HPI HPI Surgical H&P: Yes HPI: SARAH PALMER, is a 65 M who presents to the office today for colonoscopy due to bright red blood per rectum. Patient states that she usually occurs after harder stools has occurred 3 times since March. Patient also states he has some abdominal discomfort feels like gas pain be in the epigastric or along the right side, comes and goes. Patient states he has bowel movements daily denies any reflux never had a colonoscopy. Patient's sister and mom both had colon cancer sister was diagnosed age 69 mom was about 65. ROS General General: No weight change, fatigue, colon cancer, breast cancer or weakness HEENT HEENT: No difficulty swallowing, eye injury, eye surgery, swollen glands or hoarseness Endo Endocrine: No thyroid disease, diabetes mellitus, thyroid cancer, Hair loss, heat intolerance or cold intolerance Musc Musculoskeletal: Yes arthritis; no back problems, rheumatoid arthritis, gout or joint pain Cardio Cardiovascular: No pacemaker, heart disease, atrial fibrillation, high blood pressure, heart attack, heart stent, palpitations, shortness of breat with exertion or chest pain Psych Psychiatric: Yes anxiety; no depression or hearing voices Resp Respiratory: No shortness of breath, No sleep apnea, No cough, No COPD, No asthma, No emphysema, No wheezing Gastro Gastrointestinal: Yes abdominal pain, No nausea or vomiting, No diarrhea, Yes constipation, Yes blood in stool, No acid reflux, No hemorrhoids, No ulcers, No gallbladder problem, No black,tarry stools Rei Hematologic: No blood thinners, No blood disorders, Yes bleeding, No anemia, No blood clots Neuro Neurologic: No weakness Exam Const General: cooperative, healthy appearing, comfortable, no acute distress Resp Effort & Inspection: normal respiratory effort Cardio Rate: regular rate GI Inspection: non-distended Palpation: soft, no guarding, nontender Rectal Exam: deferred Extrem General: no clubbing, cyanosis or edema Psych Affect: normal affect Assessment & Plan Problems 1. BRBPR (bright red blood per rectum) K62.5 2. FH: colon cancer Z80.0 Sister age 69 and mom at 65 Plan I have discussed the above with the patient. Patient requested May 24 I have offered the patient colonoscopy for evaluation. I have explained the risks/benefits of the procedure and described the procedure. I have discussed the risks with the patient, including but not limited to: infection, bleeding, perforation of the GI tract requiring emergency surgery, inability to complete the procedure, injury to any internal organs, complications of anesthesia, etc. - the patient understands and agrees to proceed. I have answered all the patient's questions to the patient's satisfaction and the patient has no further questions. The patient has been given instructions for the colon cleansing preparation. 1 day of clears, MiraLAX Dulcolax split prep. Rosalba Mack M.D. Pager: [phone] [facility] [address] [place] [address], [facility], [address] [place] [address] Office: [phone] Orders Orders: Colonoscopy Today Plan Detail Follow Up We will schedule colonoscopy for May 24 Coding Level of Care Code Off vis,est,level 3 Diagnoses BRBPR (bright red blood per rectum) K62.5 FH: colon cancer Z80.0 COVID (Procedure Consent) Procedure Criteria Procedure Criteria: Yes Elective The surgeon/proceduralist and patient have discussed in detail the risk of exposure to and/or potential harm posed by the COVID-19 virus with having a surgery/procedure at this time versus the risk of? delaying the surgery/procedure. It is not possible to know either the risk of delaying the surgery or procedure or chance of getting an infection with perfect accuracy, but a joint decision was made between the patient and the manuel geon/proceduralist ?to proceed at this time with the scheduled surgery/procedure as indicated on the consent form. 05/18/20 1113 <Electronically signed by Rosalba Castillo am, MD> Date _ Rosalba Mack MD
--- NOTE | 2020-05-24 11:54 | OP.CCLET_ITS ---
05/24/2020 David Wagoner [address] [place] [address] Re : Colonoscopy procedure for Alphonso Yancey Dear Dr. Wagoner This procedure was performed on Sunday, May 24, 2020. My impressions and recommendations are as follows: Impressions : - 12 3 to 7 mm polyps in the sigmoid colon, in the descending colon, in the transverse colon and at the hepatic flexure, removed with a hot snare. Resected and retrieved. - One less than 5 mm polyp in the ascending colon, removed with a hot snare. Incomplete resection. Resected tissue retrieved. - Rule out malignancy, tumor in the ascending colon. Biopsied. 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 Biopsied. - Two less than 5 mm polyps in the rectum, removed with a hot snare. Resected and retrieved. - One 10 to 16 mm, non-bleeding polyp in the sigmoid colon, removed piecemeal using a hot snare. Resected and retrieved. Tattooed. Recommendations : - Discharge patient to home. - Check hemogram with white blood cell count and platelets. - Perform CT scan (computed tomography) of the chest with contrast. - Perform CT scan (computed tomography) of the abdomen with contrast today. - Perform a CT scan (computed tomography) of pelvis with contrast today. - Check liver enzymes (AST, ALT, alkaline phosphatase, bilirubin), electrolyte panel and CEA today. - Repeat colonoscopy is recommended. The colonoscopy date will be determined after pathology results from today's exam become available for review. - Continue present medications. My findings are described in the full procedure note, which is enclosed. If I can be of further assistance, please feel free to contact me at Doctor phone number(s): , Work: . Sincerely, MD Rosalba Williamson MD 05/24/2020 11:53:38 AM This report has been signed electronically.
--- NOTE | 2020-05-24 11:54 | CT_ITS ---
STUDY: CT CHEST WITH CONTRAST REASON FOR EXAM: Male, 65 years old. Known colon mass, checking for pulmonary abnormalities RADIATION DOSAGE (If Supplied By Facility): CTDIvol = ( 19.32 ) mGy, DLP = ( 2047.86 ) mGycm TECHNIQUE: Transaxial imaging was performed following intravenous administration of Oral and amp;amp; IV GASTROGRAFIN and amp;amp; 100ML ISOVUE 300. Individualized dose optimization techniques were used for this CT. COMPARISON: Previous plain films FINDINGS: Lung windows show chronic interstitial changes in both lung wong without a suspicious noncalcified mass or nodule. There is no organized infiltrate or effusion. Soft tissue windows show normal-appearing thyroid gland. Scattered subcentimeter axillary mediastinal lymph nodes. No pleural or pericardial effusions. There is likely chronic elevation of the right hemidiaphragm. Normal heart and pericardium. Normal hilar regions. Normal enhanced pulmonary arteries. Normal aorta arch and descending thoracic aorta. There are multi-level degenerative changes of the thoracic spine. Abdomen reported on a separate study CT/Chest WITH Contrast IMPRESSION: Chronic interstitial changes in both lung wong. No suspicious noncalcified mass or nodule, no organized infiltrate or effusion No pleural or pericardial effusions No suspicious adenopathy Electronically Signed: Huy Osorio MD at 15:25 EST , Service support ,
--- NOTE | 2020-05-24 11:54 | OP.COLON_ITS ---
Patient Name: Alphonso Yancey Procedure Date: 05/24/2020 9:59 AM Date of : 1955 Age: 65 Procedure: Colonoscopy Indications: Rectal bleeding, Family history of colon cancer in multiple first-degree relatives Providers: Rosalba Mack MD Referring MD: David Wagoner Medicines: Monitored Anesthesia Care Patient Profile: This is a 65 year old male. Last Colonoscopy: none. The patient's first colonoscopy is today. Complications: No immediate complications. Procedure: Pre-Anesthesia Assessment: - Prior to the procedure, a History and Physical was performed, and patient medications and allergies were reviewed. The patient's tolerance of previous anesthesia was also reviewed. The risks and benefits of the procedure and the sedation options and risks were discussed with the patient. All questions were answered, and informed consent was obtained. Prior Anticoagulants: The patient has taken no previous anticoagulant or antiplatelet agents. ASA Grade Assessment: Per anesthesia. After reviewing the risks and benefits, the patient was deemed in satisfactory condition to undergo the procedure. After I obtained informed consent, the scope was passed under direct vision. Throughout the procedure, the patient's blood pressure, pulse, and oxygen saturations were monitored continuously. The colonoscope was introduced through the anus and advanced to the cecum, identified by the ileocecal valve. The colonoscopy was performed without difficulty. The patient tolerated the procedure well. The quality of the bowel preparation was adequate to identify polyps. Scope In: 10:10:06 AM Scope Withdrawal Time 1 hour 12 minutes 29 seconds Scope Out: 11:28:25 AM Total Procedure Duration Time 1 hour 18 minutes 19 seconds Findings: 12 semi-pedunculated polyps were found in the sigmoid colon, descending colon, transverse colon and hepatic flexure. The polyps were 3 to 7 mm in size. These polyps were removed with a hot snare. Resection was complete, and retrieval was complete. A less than 5 mm polyp was found in the ascending colon. The polyp was semi-sessile. Polyp resection was incomplete. The polyp was removed with a hot snare. Polyp resection was incomplete. The resected tissue was retrieved. A polypoid non-obstructing medium-sized mass was found in the ascending colon. The mass was partially circumferential (involving one-third of the lumen circumference). No bleeding was present. Biopsies were taken with a cold forceps for histology. A frond-like/villous non-obstructing large mass was found at the ileocecal valve. The mass was partially circumferential (involving one-third of the lumen circumference). The mass measured three cm in length. No bleeding was present. Biopsies were taken with a cold forceps for histology. Two sessile polyps were found in the rectum. The polyps were less than 5 mm in size. These polyps were removed with a hot snare. Resection and retrieval were complete. A 10 to 16 mm polyp/mass was found in the sigmoid colon at 23 cm. The polyp was pedunculated. The polyp was removed with a piecemeal technique using a hot snare, 3 specimens- polyp, stalk, base sent separate to pathology. Resection was complete, and retrieval was complete. Area was tattooed with an injection of Any ink at base of polyp/mass- distal and proximal to base of polyp/mass. Impression: - 12 3 to 7 mm polyps in the sigmoid colon, in the descending colon, in the transverse colon and at the hepatic flexure, removed with a hot snare. Resected and retrieved. - One less than 5 mm polyp in the ascending colon, removed with a hot snare. Incomplete resection. Resected tissue retrieved. - Rule out malignancy, tumor in the ascending colon. Biopsied. 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 Biopsied. - Two less than 5 mm polyps in the rectum, removed with a hot snare. Resected and retrieved. - One 10 to 16 mm, non-bleeding polyp in the sigmoid colon, removed piecemeal using a hot snare. Resected and retrieved. Tattooed. Recommendation: - Discharge patient to home. - Check hemogram with white blood cell count and platelets. - Perform CT scan (computed tomography) of the chest with contrast. - Perform CT scan (computed tomography) of the abdomen with contrast today. - Perform a CT scan (computed tomography) of pelvis with contrast today. - Check liver enzymes (AST, ALT, alkaline phosphatase, bilirubin), electrolyte panel and CEA today. - Repeat colonoscopy is recommended. The colonoscopy date will be determined after pathology results from today's exam become available for review. - Continue present medications. Procedure Code(s): --- Professional --- 00261, Colonoscopy, flexible; with removal of tumor(s), polyp(s), or other lesion(s) by snare technique 29957, 59, Colonoscopy, flexible; with biopsy, single or multiple 09257, Colonoscopy, flexible; with directed submucosal injection(s), any substance Diagnosis Code(s): --- Professional --- D12.5, Benign neoplasm of sigmoid colon D12.4, Benign neoplasm of descending colon D12.3, Benign neoplasm of transverse colon (hepatic flexure or splenic flexure) K62.1, Rectal polyp D12.2, Benign neoplasm of ascending colon D49.0, Neoplasm of unspecified behavior of digestive system K62.5, Hemorrhage of anus and rectum Z80.0, Family history of malignant neoplasm of digestive organs CPT copyright 2017 [employer]. All rights reserved. The codes documented in this report are preliminary and upon personnel quality assurance auditor review may be revised to meet current compliance requirements. MD Rosalba Williamson MD 05/24/2020 11:53:38 AM This report has been signed electronically. Number of Addenda: 0 Note Initiated On: 05/24/2020 9:59 AM
--- NOTE | 2020-05-24 11:56 | CT_ITS ---
STUDY: CT ABDOMEN AND PELVIS WITH CONTRAST REASON FOR EXAM: Male, 65 years old. Diffuse abdominal pain RADIATION DOSAGE (If Supplied By Facility): CTDIvol = ( 19.32 ) mGy, DLP = ( 2047.86 ) mGycm TECHNIQUE: Transaxial images were obtained from the dome of the diaphragm to the symphysis pubis with oral contrast. Oral and amp; IV GASTROGRAFIN and amp; 100ML ISOVUE 300 was administered. Sagittal and coronal images were reconstructed. Individualized dose optimization techniques were used for this CT. COMPARISON: 2017 FINDINGS: Lungs reported on a separate study There is decreased attenuation of the liver consistent with steatosis. Normal gallbladder and extrahepatic biliary system. Normal spleen. Normal pancreas. Normal bilateral adrenal glands. Normal right kidney. Normal left kidney. Normal visualized stomach. Normal small intestine. Scattered sigmoid diverticulosis. There is nonspecific thickening in the distal sigmoid colon, an underlying lesion cannot be excluded. There is no CT evidence of acute diverticulitis. There is non-visualization of the appendix. Normal abdominal aorta. Normal inferior vena cava. Normal retroperitoneum. Normal urinary bladder. Small fat-containing bilateral inguinal hernias. There are diffuse degenerative changes of the visualized lumbar spine, and pelvis. CT/Abdomen/Pelvis WITH Contrast IMPRESSION: Fatty liver, no discrete lesion Sigmoid diverticulosis with nonspecific thickening in the distal sigmoid, an underlying lesion cannot be excluded. This is best seen on coronal recon images 92 through 96 No free intraperitoneal fluid, air, or suspicious adenopathy Degenerative bony changes Electronically Signed: Huy Osorio MD at 15:29 EST , Service support ,
[2020-05-24 12:29] LABS: Absolute Lymphocyte Count 1.15 X10^3/uL (0.83-4.51); Absolute Neutrophil Count 8.5 X10^3/uL (2.0-7.7); Basophil# 0.03 X10^3/uL; Basophil% 0.3 % (0-1); Eosinophil# 0.02 X10^3/uL; Eosinophils% 0.2 % (0-5); Hematocrit 51.6 % (40-54); Hemoglobin 16.8 g/dL (13.0-16.5); Lymphocyte # 1.15 X10^3/ul (4.0); Lymphocyte % 10.9 % (19-41); Mean Corp Hgb Conc 32.6 g/dL (32-36); Mean Corpuscular Hgb 29.8 pg (27.0-32.0); Mean Corpuscular Volume 91.5 fL (80-94); Mean Platelet Vol. 11.1 fl (6.2-12.0); Monocyte# 0.81 X10^3/uL; Monocyte% 7.6 % (0-10); NRBC Flagged by Analyzer 0 % (0-5); Neutrophil # 8.54 X10^3/uL (2.7-7.7); Neutrophil % 80.6 % (47-70); Platelet Count 204 K/mm3 (150-450); RBC Distribution Width CV 12.2 % (11.6-14.6); RBC Distribution Width SD 41.3 fl (35.1-43.9); Red Blood Count 5.64 M/mm3 (4.6-6.2); White Blood Count 10.6 K/mm3 (4.4-11.0)
[2020-05-24 12:42] LABS: ALB/GLOB Ratio 1.2 RATIO (0.9-2.4); AST(SGOT) 26 U/L (15-37); Alanine Aminotransfer ALT/SGPT 57 U/L (16-61); Albumin, Serum 3.8 g/dL (3.2-5.0); Alkaline Phosphatase 89 U/L (45-117); Anion Gap 8 (5-15); BUN 14 mg/dL (7-18); BUN/Creat Ratio 10.4 RATIO (10-20); Chloride 105 mmol/L (98-107); Creatinine, Serum 1.35 mg/dL (0.70-1.30); EST Glomerular Filtration Rate 56 mL/min (>60); Est Glom Filt Rate - Afr Amer 68 mL/min (>60); Estimated Creatinine Clearance 57.33 ml/min; Globulin 3.3 g/dL (2.2-4.2); Glucose 105 mg/dL (74-106); Potassium 3.9 mmol/L (3.5-5.1); Protein, Total 7.1 g/dL (6.4-8.2); Sodium Level 138 mmol/L (136-145)
[2020-05-25 10:11] LABS: Carcinoembryonic Antigen 1.6 ng/mL (0.0-4.7)
== END 2020-05-24 14:28 | disposition home or self-care (01) ==
LOC: EN 09:17 → AC 09:17
PROVIDERS: PCP Family Medicine; Referring Provider Family Medicine; Visit Provider Surgery
PROC: 0DJD8ZZ Inspection of Lower Intestinal Tract, Via Natural or Artificial Opening Endoscopic (ICD-10-PCS; CPT 45378; principal; 2020-05-24 10:25)
DX: K62.5 Hemorrhage of anus and rectum (principal); D12.2 Benign neoplasm of ascending colon; D12.4 Benign neoplasm of descending colon; D12.8 Benign neoplasm of rectum; D12.3 Benign neoplasm of transverse colon; D12.5 Benign neoplasm of sigmoid colon; Z80.0 Family history of malignant neoplasm of digestive organs; M35.3 Polymyalgia rheumatica; K58.9 Irritable bowel syndrome, unspecified; F41.9 Anxiety disorder, unspecified; Z87.891 Personal history of nicotine dependence; Z20.828 Contact with and (suspected) exposure to other viral communicable diseases; R10.9 Unspecified abdominal pain; M19.90 Unspecified osteoarthritis, unspecified site
CPT/HCPCS: 45380; 45381; 45385; 71260; 74177; 80053; 82378; 85025; 87426; 88305; C9803; J7120; Q9967; A4648

== ENCOUNTER 2020-05-27 10:07 | Outpatient (RCR) | payer MEDICARE, OTHER, BC, SELFPAY ==
[2020-05-24 09:43] VITALS: BMI 35.3
[2020-05-27] MEDS: COVID-19 VACC, MRNA(PFIZER)/PF 30 MCG/0.3 ML SYRINGE IM (11:41)
[2020-06-17] MEDS: COVID-19 VACC, MRNA(PFIZER)/PF 30 MCG/0.3 ML SYRINGE IM (11:34)
== END 2020-05-27 23:59 ==
LOC: IMMUN 10:07
PROVIDERS: PCP Family Medicine; Visit Provider Family Medicine
DX: Z23 Encounter for immunization (principal)
CPT/HCPCS: 0001A; 0002A

== ENCOUNTER 2020-06-01 08:53 | Inpatient (IN) | payer MEDICARE, BC, OTHER, SELFPAY ==
[2020-05-28 09:23] VITALS: BMI 34.2
[2020-06-01] VITALS (11 sets, daily range): BP systolic 124–142; BP diastolic 76–85; PULSE 72–110; RESP 16–18; TEMP 36.3–37.1; O2SAT 93–100; BMI 34.4
--- NOTE | 2020-06-01 07:46 | HP_ITS ---
Intake Vital Signs 05/28/20 Height 5 ft 11 in 05/28/20 Weight: 246 lb 05/28/20 BMI 34.2 05/28/20 BP 154/97 H 05/28/20 Blood Pressure Location Rt brachial 05/28/20 Position Sitting 05/28/20 Respiration 18 05/28/20 Pulse 74 05/28/20 Pulse Source Monitor 05/28/20 Temp 97.9 F 05/28/20 Temp Source Temporal 05/28/20 Pulse Oximetry (%) 100 05/28/20 Oxygen Delivery Method room air Intake Visit Reasons: Discuss having surgery Chief Complaint: Discuss colectomy Shipping Order Clerk Required: No Accompanied by: Is patient in pain?: No Allergies No Known Allergies Allergy (Verified 05/28/20 09:24) Medications lorazepam 1 mg tablet 1 mg PO Q12H PRN tab 05/18/20 [History Confirmed 05/28/20] PFSH Medical History (Updated 05/28/20 @ 09:22 by Damari Nicholson) Anxiety (Acute) Appendicitis (Acute) IBS (irritable bowel syndrome) (Acute) Multiple polyps of sigmoid colon (Acute) Multiple thyroid nodules (Acute) PMR (polymyalgia rheumatica) (Acute) Renal calculi (Acute) Surgical History (Updated 05/28/20 @ 09:23 by Damari Nicholson) History of arthroscopy of right knee (Acute ~1980) History of colonoscopy (Acute ~05/24/20) Hx of appendectomy (Acute ~2017) Family History Sister Colon cancer Diabetes Mother Colon cancer, Onset Age: 65 Father CAD (coronary artery disease) Social History (Updated 05/28/20 @ 09:[address] Rosalba Mack MD) Smoking Status: Former smoker HPI HPI HPI: SARAH PALMER, is a 65 M who presents to the office today for HPI HPI Surgical H&P: Yes HPI: SARAH PALMER, is a 65 M who presents to the office today for discussion of pathology results from colonoscopy. Patient did have 2 areas of incomplete resection of tubulovillous adenoma in the right colon at the ileocecal valve and proximal ascending colon. Patient does have family history of colon cancer with his mom and his sister diagnosed at ages 69/65. Patient's first colonoscopy last Sunday. Patient currently states he is doing well denies any abdominal pain and having bowel function tolerating diet. Patient's CTs chest, abdomen, pelvis not showing suspicion for any metastatic disease as well as pathology not show any obvious malignancy on biopsy. ROS General General: No weight change, fatigue, colon cancer, breast cancer or weakness HEENT HEENT: No difficulty swallowing, eye injury, eye surgery, swollen glands or hoarseness Endo Endocrine: No thyroid disease, diabetes mellitus, thyroid cancer, Hair loss, heat intolerance or cold intolerance Musc Musculoskeletal: Yes arthritis; no back problems, rheumatoid arthritis, gout or joint pain Cardio Cardiovascular: No pacemaker, heart disease, atrial fibrillation, high blood pressure, heart attack, heart stent, palpitations, shortness of breat with exertion or chest pain Psych Psychiatric: Yes anxiety; no depression or hearing voices Resp Respiratory: No shortness of breath, No sleep apnea, No cough, No COPD, No asthma, No emphysema, No wheezing Gastro Gastrointestinal: Yes abdominal pain, No nausea or vomiting, No diarrhea, Yes constipation, Yes blood in stool, No acid reflux, No hemorrhoids, No ulcers, No gallbladder problem, No black,tarry stools Rei Hematologic: No blood thinners, No blood disorders, Yes bleeding, No anemia, No blood clots Neuro Neurologic: No weakness Exam Const General: cooperative, comfortable, no acute distress Resp Effort & Inspection: normal respiratory effort Cardio Rate: regular rate GI Inspection: non-distended Palpation: soft, no guarding, nontender Neuro Cranial Nerves: CN's II-XI intact bilaterally Extrem General: no clubbing, cyanosis or edema Psych Affect: normal affect Assessment & Plan Problems 1. Tubulovillous adenoma of colon D12.6 2. FH: colon cancer Z80.0 Sister age 69 and mom at 65 Plan Reviewed the pathology part with the patient and his patient had 2 areas in the right colon at the ileocecal valve and ascending colon with carpet-like tubulovillous adenomas that were unable to be completely resected at time of colonoscopy. Patient also has 3 other areas of tubulovillous adenoma which were completely resected. Along with additional tubular adenomas which were completely resected -- 7 tubular adenomas. Discussed with patient would likely be getting a repeat scope in 6 months. Patient did have initial work-up for a possible mass including CT chest/abdomen pelvis which were negative not show any suspicion for any metastatic disease, labs are also within normal limits set for a slightly elevated creatinine likely due to being dehydrated from colonoscopy that day. Patient's CEA was also 1.6. Did discuss the anatomy and procedure: ERAS laparoscopic right colectomy, possible open with the patient. Including risks, but not limited to, bleeding, infection (superficial or intraabdominal), injury to another organ (small bowel, colon, ureter, etc.) requiring additional procedures, and blood clots. Also, discussed the pre-op, colon prep and antibiotics. All questions were answered. Patient will be given information about the ERAS, preoperative prep and antibiotics. Greater than 50% of direct patient contact was spent in counseling or coordination of care. I spent 25 minutes counseling the patient about CT abdomen pelvis results as well as pathology results and discussing in describing surgery/postoperative care and coordinating care. Rosalba Mack M.D. Pager: [phone] [facility] [address] [place] [address], [address] [place] [address] Office: [phone] Plan Detail Follow Up Plan to schedule right hemicolectomy likely next week Coding Level of Care Code Off vis,est,level 4 Diagnoses Tubulovillous adenoma of colon D12.6 FH: colon cancer Z80.0 COVID (Procedure Consent) Procedure Criteria Procedure Criteria: Yes Elective The surgeon/proceduralist and patient have discussed in detail the risk of exposure to and/or potential harm posed by the COVID-19 virus with having a surgery/procedure at this time versus the risk of? delaying the surgery/procedure. It is not possible to know either the risk of delaying the surgery or procedure or chance of getting an infection with perfect accuracy, but a joint decision was made between the patient and the surgeon/proceduralist ?to proceed at this time with the scheduled surgery/procedure as indicated on the consent form. I have re-examined the patient. There are no clinical changes since date of exam.
[2020-06-01] MEDS: Famotidine 200 MG/20 ML MDV 40 MG in 0.9% Normal Saline (Pres. free 6 ML 300 MG IV (09:43)
[2020-06-01] MEDS: Acetaminophen 500 MG Tablet 1000 MG PO ×2 (09:43→17:44)
[2020-06-01] MEDS: Gabapentin 600 MG Tablet PO (09:44)
[2020-06-01] MEDS: Lactated Ringers 1,000 ML 40 ML IV ×3 (09:44→17:44)
[2020-06-01 10:20] LABS: Magnesium 2.1 mg/dL (1.6-2.6)
[2020-06-01 10:56] LABS: Bedside Glucose 141 mg/dL (70-110)
--- NOTE | 2020-06-01 11:05 | COL_PTH ---
PATIENT: SARAH PALMER LOC: MS3 U#:[id number] AGE/SX: 65/M [place] [facility] [place]: Dr. Rosalba Mack MD : 1955 BED: 1 DIS: 06/08/2020 SPEC #: [id number] RECD: 06/01/20 15:45 STATUS: BENNY REQ #: [id number] LISA: 06/01/20 11:[address]: Rosalba Mack DEPT: SURGICAL PATHOLOGY RECD BY: Cindy Frank ENTERED: 06/02/20 07:39 SP TYPE: COLON OTHR DR: Dr. David Wagoner, DO Tissues: A - Colon, NOS B - Transverse colon Procedures: Surgery Specimen Level III Surgery Specimen Level V HEADER OPERATION: ERAS, laparoscopic hemicolectomy PRE-OP DIAGNOSIS: Tubulovillous adenoma of colon with history of colon cancer TISSUE SUBMITTED: A - Right colon, B - Mid transverse colon MICROSCOPIC DIAGNOSIS A. Right colon, hemicolectomy: Cecal polyp - tubulovillous adenoma with focal high-grade dysplasia. Ascending colon polyp - tubulovillous adenoma. Tubular adenoma x2. Six lymph nodes with reactive changes. Omentum, no pathologic diagnosis. Small intestine and colonic donut, no pathologic diagnosis. B. Mid transverse colon, segmental resection: Segment of colon, no pathologic diagnosis. SJ:janie 06/04/2020 COMMENT Please make reference to previous specimen ([id number]) ileocecal valve/cecum mass, biopsy with diagnosis of fragments of tubulovillous adenoma and ascending colon polyp, biopsy with diagnosis of fragments of villous adenoma and ascending colon polyp #2, biopsy with diagnosis of fragments of tubulovillous adenoma and hepatic flexure polyp, biopsy with diagnosis of fragments of tubular adenoma and transverse colon polyp, biopsy with diagnosis of fragments of tubular adenoma and descending colon polyp biopsy with diagnosis of fragments of tubular adenoma and sigmoid colon polyp at 40 cm , biopsy with diagnosis of fragments of villous adenoma and sigmoid colon polyp at 23 cm, biopsy with diagnosis of fragments of villous adenoma with high grade dysplasia and sigmoid colon polyp at 23 cm, biopsy with diagnosis of a benign mucosal polyp with focal minimal hyperplastic changes and negative for adenomatous changes and sigmoid colon polyp at 23 cm, base, biopsy with diagnosis of colonic tissue consistent with base, negative for adenomatous changes and fragments of tubulovillous adenoma and rectal polyp x2, biopsy with diagnosis of fragments of tubulovillous adenoma and hyperplastic polyp. This case is discussed with Dr. Mack on 06/04/2020. Case has been reviewed in consultation with Dr. Gregg who concurs with the above diagnosis. IDC:[email or web address] MICROSCOPIC DESCRIPTION Slides are reviewed. GROSS DESCRIPTION A - Received in fixative is one container labeled with the patient's name and designated right colon. The specimen consists of a right hemicolectomy specimen consisting of cecum with ascending colon and portion of proximal transverse colon with attached pericolonic adipose tissue and omentum. The cecum with ascending colon and transverse colon measures 19 cm in length and segment of small intestine measures 6.5 cm in length. The appendix is not identified. The proximal resection margin is stapled. The distal resection margin is stapled, however, previously opened. The attached omentum measures 17 x 12 x 4 cm. Sections of omentum does not reveal any mass lesion. Two large sessile polyps are noted, one in the ascending colon 12 cm from the distal resection margin measuring 2.5 x 2 x 1 cm. The second polyp in the cecum adjacent to the ileocecal valve measuring 4.5 x 3 x 0.5 cm. Two smaller polyps are also noted, one in the cecum measuring 0.6 x 0.5 x 0.4 cm and one polyp between ascending colon and cecum polyps measuring 0.5 cm in greatest dimension. The pericolonic adipose tissue is placed in lymph node revealing solution. Also present in the container is an irregular piece of tissue consistent with donut measuring 4.5 x 4 x 2 cm. More dictation will follow after overnight fixation. / SJ:janie 06/02/20 Sections of both larger polyps show no invasion into the underlying bowel wall. Sections of pericolonic adipose tissue reveal multiple lymph nodes. The largest lymph node measures 0.3 cm. Personal Service Representative sections are submitted as follows: 1 - donut, 2 - proximal and distal resection margin, 3 - two smaller polyps, 46??polyp in the ascending colon, 7-11 - polyp in the cecum and ileocecal valve, 12 - instruments sales representative sections of small intestine, large intestine and ileocecal valve, 13 - omentum and multiple lymph nodes, 14 - multiple lymph nodes. All the polyps are submitted in entirety. / ANANTH:janie 06/03/20 B - Received in fixative is one container labeled with the patient's name and designated mid transverse colon. The specimen consists of a small segment of colon measuring 4.5 x 2 x 1 cm. Multiple kosta are noted. No lesion is identified. Personal Service Representative sections are submitted in one cassette. / SJ:janie 06/02/20 TC:1 CPT: 50648 x2, 97187
[2020-06-01] MEDS: Lidocaine/D5W 2,000 MG/250 ML IV.SOLN 34.5 MG IV (11:40)
[2020-06-01] MEDS: BUPIVACAINE LIPOSOME/PF 20 ML VIAL OPERA.SITE (12:00)
[2020-06-01] MEDS: 0.9% Normal Saline (Pres. free 10 ML Vial (12:00)
[2020-06-01] MEDS: Bupivacaine 0.25% 30 ML Vial (12:00)
--- NOTE | 2020-06-01 14:40 | OP.PCM_ITS ---
Report of Operation Date of Procedure: 06/01/20 Pre-Operative Diagnosis: Large tubulovillous adenomatous of the cecum and ascending colon Post-Operative Diagnosis: Same Surgery/Procedure Performed:: Laparoscopic right hemicolectomy financial accountant: MIRELLA vanessa Type of Anesthesia:: General/Supplemental Anesthesiologist: Demian Reed Special Medications: Cefotetan 2 g IV x1 Specimen's removed: Right hemicolectomy, transverse colon Drains: Stratton 250 cc Estimated Blood Loss (mL): 20 cc Fluids Replaced: 2500 cc Description of Procedure: Indications this is a 65-year-old male who had a colonoscopy showing 2 large tubulovillous adenomas the ileocecal valve and ascending colon. Further workup with CT chest/abdomen/pelvis was negative for metastatic disease. Laparoscopic right hemicolectomy was elected. Description procedure: The patient was placed on operating table in supine position. General Anesthesia was induced. A timeout was completed verifying correct patient, procedure, site, position, social, and special equipment prior to beginning procedure. An orogastric tube was placed. The abdomen was prepped and draped in usual sterile fashion. An incision was made in the natural skin line above the umbilicus. The fascia was elevated and incised. The peritoneum was elevated and incised. Entry into the peritoneum was confirmed visually and no bowel was noted in the vicinity of the incision. Campbell trocar was placed. The abdomen was insufflated with carbon dioxide to a pressure of 12-15 mmHg. Patient tolerated insufflation well. The laparoscope was then inserted and abdomen inspected. No injuries from initial trocar placement were noted. Laparoscopic Tap block was done using sure of Exparel, 0.25% bupivacaine and saline for total of 100 cc, 80 cc used for tap block and 20 cc of end of the case was placed. Additional trochars were then inserted in the following locations 5 mm trocar in the left lower quadrant. An additional 5 mm trochar was suprapubically. The abdomen was inspected the area, the terminal ileum was adherent to the right lower quadrant. This was freed using traction and sharp dissection. The table is placed in Trendelenburg position with the right side up. The cecum was grasped with the left hand the operating surgeon lifted up to tent the ileocolic artery. The dissection was then started at the base of the ileocolic artery were joined the superior mesenteric artery. The peritoneum overlying the takeoff of the ileal colic artery was opened using electrocautery. Hemolock clips were placed on the ileocolic artery 2 on the proximal and 1 distal laparoscopic scissors were used to divide. Dissection continued bluntly in the retroperitoneum using traction and countertraction technique with gentle sweeping. This dissection was carried along the plane of the white line of Toldt to the duodenum. The duodenum and its attachments were swept downward. This dissection continued in an avascular plane to the liver and gallbladder were encountered. Enseal was used to free up the hepatic flexure and transverse colon. The right colic artery with and vein were identified and gently dissected and divided using the Enseal. Supraumbilical incision was enlarged to accommodate the hand port. HandPort was used to help with mobilization of the colon due to the heavy omentum. The abdomen was allowed to collapse. The ascending and transverse colon & omentum attached to resect a portion of the colon was divided and resected with the specimen. Right colon was delivered and extracted. The small bowel and colon was then divided extrac orporeally with the MADHU 75 (standard load) after the right branch of the middle colic was also divided with the Enseal. The mesenteric dissection was completed as needed on the small bowel and colonic sides and the specimen resection was thus completed. The specimen was removed. To get more adequate length on the transverse colon abdomen abdomen was reinsufflated. Enseal and HandPort was used for additional mobilization, by dissecting some of the omentum off the transverse colon as this was quite heavy and not allowing for adequate mobilization. The abdomen was allowed to collapse the the 2 ends were bought together extracorporeally. The 2 ends of the ileum and transverse colon were then aligned, ensuring that the mesentery was not twisted, and the staple [id number] anastomosis using the standard load-MADHU 75 ?No bleeding was noted in lumens and closed using TL 60. Crutch-stitch have 3-0 silk was placed. The lumen was palpated and patent. The trochars removed under direct visualization. Once the wound protector was removed, all gowns and gloves were changed. The midline incision was closed with 1-0 PDS suture at the fascia and then the skin was closed with 4-0 Monocryl running sutures along with port sites. Dry sterile dressings were applied. The sponge and instrument count were correct. The patient was extubated. The patient tolerated procedure well and was taken to the postanesthesia care unit in stable condition. - Complications none
[2020-06-01] MEDS: Ondansetron ODT 4 MG Tablet PO (21:09)
[2020-06-01] MEDS: Docusate Sodium 100 MG Capsule PO (21:11)
[2020-06-02] VITALS (7 sets, daily range): BP systolic 135–162; BP diastolic 75–85; PULSE 83–105; RESP 16–18; TEMP 36.4–37.3; O2SAT 93–99
[2020-06-02] MEDS: Acetaminophen 500 MG Tablet 1000 MG PO ×4 (00:38→17:52)
[2020-06-02] MEDS: 0.9% Saline Lock 10 ML Syringe IV (05:20)
[2020-06-02 06:30] LABS: Hematocrit 46.1 % (40-54); Hemoglobin 15.2 g/dL (13.0-16.5); Mean Corpuscular Hgb 29.7 pg (27.0-32.0); Mean Platelet Vol. 10.7 fl (6.2-12.0); Platelet Count 192 K/mm3 (150-450); RBC Distribution Width CV 12.2 % (11.6-14.6); RBC Distribution Width SD 40.4 fl (35.1-43.9); Red Blood Count 5.12 M/mm3 (4.6-6.2); White Blood Count 9.2 K/mm3 (4.4-11.0)
[2020-06-02 07:19] LABS: Anion Gap 6 (5-15); BUN 7 mg/dL (7-18); Calcium,Total 8.6 mg/dL (8.5-10.1); Chloride 106 mmol/L (98-107); EST Glomerular Filtration Rate 79 mL/min (>60); Est Glom Filt Rate - Afr Amer 96 mL/min (>60); Estimated Creatinine Clearance 77.39 ml/min; Glucose 133 mg/dL (74-106); Potassium 3.7 mmol/L (3.5-5.1); Sodium Level 139 mmol/L (136-145)
[2020-06-02] MEDS: Docusate Sodium 100 MG Capsule PO ×2 (08:57→21:12)
[2020-06-02] MEDS: Enoxaparin 40 MG/0.4 ML Syringe SC (08:57)
--- NOTE | 2020-06-02 08:57 | PN.SURG_ITS ---
Subjective: Patient tolerating clears, denies any flatus. Patient does complain of some soreness to the abdomen but has not needed any narcotics - Physical Exam Vitals/I&O's: Vital Signs Temp Pulse Resp BP Pulse Ox 98.3 F 92 16 158/83 H 96 06/02/20 08:30 06/02/20 08:30 06/02/20 08:30 06/02/20 08:30 06/02/20 08:30 Oxygen Flow Rate (L/min) 6 Oxygen Delivery Method Room Air Weight: 246 lb 14.684 oz Body Mass Index (BMI) 34.4 Intake and Output for Last 24 Hours 05/31/20 06/01/20 06/02/20 23:59 23:59 23:59 Intake Total / 904.67 / 904.67 Output Total 590 / 590 1075 / 1075 Balance 1420.25 / 1420.25 -170.33 / -170.33 General: Alert, Oriented x3, Cooperative, No apparent distress HEENT: Atraumatic Lungs: Normal air movement Cardiovascular: Regular rate Abdomen: Soft, Non Tender, Non-Distended Extremities: No clubbing, No cyanosis, No edema Neurological: Cranial nerves II-XII grossly intact Psych/Mental Status: Normal Affect Microbiology Past 72 Hours 05/31/20 08:55 Interface Orders SARS-CoV-2 Antigen (Rapid) - Final Laboratory Results 06/01/20 09:48: POC Glucose 141 H 06/01/20 10:08: Magnesium 2.1 06/02/20 06:00: WBC 9.2, RBC 5.12, Hgb 15.2, Hct 46.1, MCV 90.0, MCH 29.7, MCHC 33.0, RDW Std Deviation 40.4, RDW Coeff of Rd 12.2, Plt Count 192, MPV 10.7 06/02/20 06:00: Sodium 139, Potassium 3.7, Chloride 106, Carbon Dioxide 27.0, Anion Gap 6, BUN 7, Creatinine 1.00, Estim Creat Clear Calc 77.39, Est GFR (MDRD) Af Amer 96, Est GFR (MDRD) Non-Af 79, BUN/Creatinine Ratio 7.0 L, Glucose 133 H, Calcium 8.6 Current Medications Acetaminophen (Acetaminophen 500 Mg Tablet) 1,000 mg PO Q6 [facility] Last Admin: 06/02/20 05:05 Dose: 1,000 mg Documented by: Docusate Sodium (Docusate Sodium 100 Mg Capsule) 100 mg PO BID [facility] Last Admin: 06/01/20 21:11 Dose: 100 mg Documented by: Lactated Ringer's () 1,000 mls @ 40 mls/hr IV .Q25H [facility] Stop: 06/02/20 17:09 Last Infusion: 06/02/20 05:21 Dose: Infused Documented by: Lorazepam (Lorazepam 1 Mg Tablet) 1 mg PO Q12H PRN PRN Reason: anxiety Magnesium Chloride (Magnesium Chloride 64 Mg Delay Rel.Tablet) 128 mg PO DAILY PRN PRN PRN Reason: Constipation Nutritional Formula (Lactose Free) (Ensure Enlive 120 Ml Liquid) 120 ml PO 4X/DAY [facility] Last Admin: 06/01/20 21:11 Dose: Not Given Documented by: Ondansetron HCl (Ondansetron Odt 4 Mg Tablet) 4 mg PO Q6H PRN PRN PRN Reason: NAUSEA Last Admin: 06/01/20 21:09 Dose: 4 mg Documented by: Sodium Chloride (0.9% Saline Lock 10 Ml Syringe) 10 - 40 ml IV UD PRN PRN Reason: SALINE FLUSH Last Admin: 06/02/20 05:20 Dose: 10 ml Documented by: Medical Necessity - Tobacco Use Smoking Status: Former smoker Assessment/Plan 65-year-old male status post right hemicolectomy due to 2 large tubulovillous polyps ileocecal valve and in the ascending colon. 1. Patient is currently on clears denies any nausea-advance to transitional denies flatus currently. 2. Patient is ambulating halls, continue pain control with Tylenol. 3. Lovenox 40 mg subcu. Rosalba Mack M.D. Pager: [phone] [facility] [address] [place] [address], [facility], [address] [place] [id number] Office: [phone]
--- NOTE | 2020-06-02 12:42 | NURSING ---
RN CM Assessment Introduced role of RN CM to patient.? Patient is alert, oriented and able?to participate in RN CM Assessment. ?Care providers, pharmacy, and demographics verified. Admit Dx: Right Hemicolectomy Re-Admit: No Barriers/Issues: None PCP: David Wagoner Specialists: Dr Marco Cortez Preferred [facility]acy: [facility] Insurance: [employer] A/B, [place] Rx Benefit:?Yes LNOK: - Debi Yancey LW/HPOA: None, declines offered information or completion on this admission. 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 Living Arrangements:? Lives with in a H, 1 step to enter home. ADL?s: Independent with ambulation and ADLs Transportation: Both patient and drive, to transport upon DC DME: None HHC: None SNF: none Goal: Home and does not think will have any needs. Denies any issues, questions, or concerns with DC planning at this time. Aware RNCM remains available should any needs arise. DC PLAN: Home with no anticipated needs identified. MERCEDEZ Plunkett
[2020-06-03] MEDS: Acetaminophen 500 MG Tablet 1000 MG PO (00:40)
[2020-06-03 02:25] VITALS: BP 130/76; PULSE 90; RESP 18; TEMP 37.3; O2SAT 94
[2020-06-03] MEDS: Ondansetron ODT 4 MG Tablet PO ×2 (06:00→16:36)
[2020-06-03 06:50] LABS: Absolute Lymphocyte Count 1.01 X10^3/uL (0.83-4.51); Absolute Neutrophil Count 8.2 X10^3/uL (2.0-7.7); Basophil# 0.02 X10^3/uL; Basophil% 0.2 % (0-1); Eosinophil# 0.03 X10^3/uL; Eosinophils% 0.3 % (0-5); Hemoglobin 15.9 g/dL (13.0-16.5); Lymphocyte # 1.01 X10^3/ul (4.0); Lymphocyte % 9.9 % (19-41); Mean Corp Hgb Conc 32.4 g/dL (32-36); Mean Corpuscular Volume 92.5 fL (80-94); Mean Platelet Vol. 10.7 fl (6.2-12.0); Monocyte# 0.91 X10^3/uL; Monocyte% 8.9 % (0-10); NRBC Flagged by Analyzer 0 % (0-5); Neutrophil % 80.1 % (47-70); Platelet Count 187 K/mm3 (150-450); RBC Distribution Width CV 12.3 % (11.6-14.6); RBC Distribution Width SD 42.3 fl (35.1-43.9); White Blood Count 10.2 K/mm3 (4.4-11.0)
--- NOTE | 2020-06-03 06:57 | PCM.PN.SRG ---
Subjective: Patient has had small liquid bowel movements initially black now darker brown, to started to have some flatus also had some nausea and emesis this morning. - Physical Exam Vitals/I&O's: Vital Signs Temp Pulse Resp BP Pulse Ox 99.1 F 90 18 130/76 H 94 06/03/20 02:25 06/03/20 02:25 06/03/20 02:25 06/03/20 02:25 06/03/20 02:25 Oxygen Flow Rate (L/min) 6 Oxygen Delivery Method Room Air Weight: 246 lb 14.684 oz Body Mass Index (BMI) 34.4 Intake and Output for Last 24 Hours 06/01/20 06/02/20 06/03/20 23:59 23:59 23:59 Intake Total / 1604.67 / 1954.67 950 / 950 Output Total 590 / 590 1775 / 1775 Balance 1420.25 / 1420.25 -170.33 / 179.67 950 / 950 General: Alert, Oriented x3, Cooperative Lungs: Normal air movement Cardiovascular: Regular rate Abdomen: Soft, Distended - mild, Tender - Near incision dressed clean dry and intact., No peritoneal signs Microbiology Past 72 Hours 05/31/20 08:55 Interface Orders SARS-CoV-2 Antigen (Rapid) - Final Laboratory Results 06/02/20 06:00: Sodium 139, Potassium 3.7, Chloride 106, Carbon Dioxide 27.0, Anion Gap 6, BUN 7, Creatinine 1.00, Estim Creat Clear Calc 77.39, Est GFR (MDRD) Af Amer 96, Est GFR (MDRD) Non-Af 79, BUN/Creatinine Ratio 7.0 L, Glucose 133 H, Calcium 8.6 06/03/20 06:40: WBC 10.2, RBC 5.30, Hgb 15.9, Hct 49.0, MCV 92.5, MCH 30.0, MCHC 32.4, RDW Std Deviation 42.3, RDW Coeff of Rd 12.3, Plt Count 187, MPV 10.7, Immature Gran % (Auto) 0.600, Neut % (Auto) 80.1 H, Lymph % (Auto) 9.9 L, [place] % (Auto) 8.9, Eos % (Auto) 0.3, Baso % (Auto) 0.2, Absolute Neuts (auto) 8.2 H, Absolute Lymphs (auto) 1.01, Nucleated RBC % 0 Current Medications Acetaminophen (Acetaminophen 500 Mg Tablet) 1,000 mg PO Q6 [facility] Last Admin: 06/03/20 00:40 Dose: 1,000 mg Documented by: Docusate Sodium (Docusate Sodium 100 Mg Capsule) 100 mg PO BID [facility] Last Admin: 06/02/20 21:12 Dose: 100 mg Documented by: Pantoprazole Sodium 40 mg/ (Sodium Chloride) 110 mls @ 330 mls/hr IV Q24 [facility] Lorazepam (Lorazepam 1 Mg Tablet) 1 mg PO Q12H PRN PRN Reason: anxiety Magnesium Chloride (Magnesium Chloride 64 Mg Delay Rel.Tablet) 128 mg PO DAILY PRN PRN PRN Reason: Constipation Ondansetron HCl (Ondansetron Odt 4 Mg Tablet) 4 mg PO Q6H PRN PRN PRN Reason: NAUSEA Last Admin: 06/03/20 06:00 Dose: 4 mg Documented by: Sodium Chloride (0.9% Saline Lock 10 Ml Syringe) 10 - 40 ml IV UD PRN PRN Reason: SALINE FLUSH Last Admin: 06/02/20 05:20 Dose: 10 ml Documented by: Medical Necessity - Tobacco Use Smoking Status: Former smoker Assessment/Plan 65-year-old male postop day 2 status post right hemicolectomy due to 2 large tubulovillous polyps ileocecal valve and in the ascending colon. 1. Patient did have some nausea and a small emesis this morning. But did also pass little bit of flatus and has had a few liquid bowel movements initially black. Continue on clears currently. 2. Patient is ambulating halls, continue pain control with Tylenol. 3. Lovenox 40 mg subcu. Rosalba Mack M.D. Pager: [phone] [facility] [address] [place] [address], [facility], [address] [place] [address] Office: [phone]
[2020-06-03 07:18] VITALS: O2SAT 94
[2020-06-03 07:52] VITALS: BP 129/77; PULSE 87; RESP 16; TEMP 36.4; O2SAT 96
[2020-06-03] MEDS: 0.9% Saline Lock 10 ML Syringe IV ×2 (08:07→18:23)
--- NOTE | 2020-06-03 09:20 | RAD_ITS ---
STUDY: X-RAY - ABDOMEN/PELVIS REASON FOR EXAM: Male, 65 years old. nausea, vomiting TECHNIQUE: Single AP view of the abdomen / pelvis. COMPARISON: 04/11/2012 FINDINGS: Normal visualized lung bases. There are dilated small and large bowel loops. There is no demonstrated free abdominal air. Normal soft tissue structures. Normal visualized osseous structures. RAD/Abdomen Single View (Portable) IMPRESSION: Dilated small and large bowel loops, this may represent ileus. Electronically Signed: Leigh Fuchs MD at 10:23 EST Tel , Service support ,
[2020-06-03 13:54] VITALS: BP 142/79; PULSE 110; RESP 16; TEMP 36.4; O2SAT 98
[2020-06-03] MEDS: proMETHazine 25 MG/ML Syringe 12.5 MG IV (18:23)
[2020-06-03 18:38] VITALS: TEMP 36.4
[2020-06-03 20:00] VITALS: BP 116/62; PULSE 80; RESP 18; TEMP 37.3; O2SAT 95
--- NOTE | 2020-06-03 20:30 | NURSING ---
pt c/o that room is to hot. pt door open to help hot air escape, fan given and temp decreased
[2020-06-03] MEDS: Docusate Sodium 100 MG Capsule PO (21:30)
[2020-06-03] MEDS: LORazepam 1 MG Tablet PO (21:30)
[2020-06-04] VITALS (9 sets, daily range): BP systolic 141–155; BP diastolic 79–87; PULSE 86–110; RESP 16–18; TEMP 36.3–37.4; O2SAT 95–96
[2020-06-04] MEDS: proMETHazine 25 MG/ML Syringe 12.5 MG IV ×3 (00:23→19:57)
[2020-06-04] MEDS: 0.9% Saline Lock 10 ML Syringe IV (00:24)
[2020-06-04 07:39] LABS: Absolute Lymphocyte Count 1.57 X10^3/uL (0.83-4.51); Absolute Neutrophil Count 10.9 X10^3/uL (2.0-7.7); Basophil# 0.05 X10^3/uL; Basophil% 0.4 % (0-1); Eosinophil# 0.04 X10^3/uL; Eosinophils% 0.3 % (0-5); Hematocrit 53.8 % (40-54); Lymphocyte # 1.57 X10^3/ul (4.0); Lymphocyte % 11.3 % (19-41); Mean Corp Hgb Conc 33.5 g/dL (32-36); Mean Corpuscular Hgb 30.6 pg (27.0-32.0); Mean Corpuscular Volume 91.5 fL (80-94); Mean Platelet Vol. 10.7 fl (6.2-12.0); Monocyte% 9.4 % (0-10); NRBC Flagged by Analyzer 0 % (0-5); Neutrophil # 10.89 X10^3/uL (2.7-7.7); Neutrophil % 78.2 % (47-70); Platelet Count 240 K/mm3 (150-450); RBC Distribution Width CV 12.4 % (11.6-14.6); RBC Distribution Width SD 41.8 fl (35.1-43.9); Red Blood Count 5.88 M/mm3 (4.6-6.2); White Blood Count 13.9 K/mm3 (4.4-11.0)
--- NOTE | 2020-06-04 07:51 | NURSING ---
agree with student nurse assessment-will add pt reports 4 green diarrhea stools this am, no flatus also that lab called with hgb of 18 heart rate if 110-will notify dr sanz of all of above details
[2020-06-04 07:58] LABS: Magnesium 2.5 mg/dL (1.6-2.6)
[2020-06-04 08:02] LABS: Anion Gap 9 (5-15); BUN 18 mg/dL (7-18); BUN/Creat Ratio 17.1 RATIO (10-20); Calcium,Total 9.4 mg/dL (8.5-10.1); Chloride 106 mmol/L (98-107); Creatinine, Serum 1.05 mg/dL (0.70-1.30); EST Glomerular Filtration Rate 75 mL/min (>60); Est Glom Filt Rate - Afr Amer 91 mL/min (>60); Estimated Creatinine Clearance 73.71 ml/min; Glucose 131 mg/dL (74-106); Potassium 3.7 mmol/L (3.5-5.1); Sodium Level 139 mmol/L (136-145)
[2020-06-04] MEDS: Lactated Ringers 1,000 ML 999 ML IV (08:20)
--- NOTE | 2020-06-04 09:17 | PCM.PN.SRG ---
Subjective: Patient states he has been having some liquid stools denies any abdominal pain but does have occasional nausea. Patient has been ambulate in the halls - Physical Exam Vitals/I&O's: Vital Signs Temp Pulse Resp BP Pulse Ox 97.3 F L 110 H 18 153/80 H 96 06/04/20 07:24 06/04/20 07:26 06/04/20 07:26 06/04/20 07:24 06/04/20 07:26 Oxygen Flow Rate (L/min) 6 Oxygen Delivery Method Room Air Weight: 246 lb 14.684 oz Body Mass Index (BMI) 34.4 Intake and Output for Last 24 Hours 06/02/20 06/03/20 06/04/20 23:59 23:59 23:59 Intake Total 1604.67 / 1954.67 1180 / 1180 120 / 120 Output Total 1775 / 1775 Balance -170.33 / 179.67 1180 / 1180 120 / 120 General: Alert, Oriented x3, Cooperative HEENT: Atraumatic Lungs: Normal air movement Cardiovascular: Regular rate Abdomen: Soft, Non Tender, Non-Distended, - - Incision clean dry and intact with Steri's Extremities: No clubbing, No cyanosis, No edema Laboratory Results 06/04/20 07:23: Magnesium 2.5 06/04/20 07:23: Sodium 139, Potassium 3.7, Chloride 106, Carbon Dioxide 24.0, Anion Gap 9, BUN 18, Creatinine 1.05, Estim Creat Clear Calc 73.71, Est GFR (MDRD) Af Amer 91, Est GFR (MDRD) Non-Af 75, BUN/Creatinine Ratio 17.1, Glucose 131 H, Calcium 9.4 06/04/20 07:23: WBC 13.9 H, RBC 5.88, Hgb 18.0 H*, Hct 53.8, MCV 91.5, MCH 30.6, MCHC 33.5, RDW Std Deviation 41.8, RDW Coeff of Rd 12.4, Plt Count 240, MPV 10.7, Immature Gran % (Auto) 0.400, Neut % (Auto) 78.2 H, Lymph % (Auto) 11.3 L, [place] % (Auto) 9.4, Eos % (Auto) 0.3, Baso % (Auto) 0.4, Absolute Neuts (auto) 10.9 H, Absolute Lymphs (auto) 1.57, Nucleated RBC % 0 Current Medications Acetaminophen (Acetaminophen 500 Mg Tablet) 1,000 mg PO Q6 [facility] Last Admin: 06/04/20 05:01 Dose: Not Given Documented by: Docusate Sodium (Docusate Sodium 100 Mg Capsule) 100 mg PO BID [facility] Last Admin: 06/04/20 07:40 Dose: Not Given Documented by: Pantoprazole Sodium 40 mg/ (Sodium Chloride) 110 mls @ 330 mls/hr IV Q24 [facility] Last Admin: 06/04/20 07:40 Dose: 330 mls/hr Documented by: Lactated Ringer's () 1,000 mls @ 100 mls/hr IV .Q10H [facility] Lorazepam (Lorazepam 1 Mg Tablet) 1 mg PO Q12 [facility] Magnesium Chloride (Magnesium Chloride 64 Mg Delay Rel.Tablet) 128 mg PO DAILY PRN PRN PRN Reason: Constipation Ondansetron HCl (Ondansetron Odt 4 Mg Tablet) 4 mg PO Q6H PRN PRN PRN Reason: NAUSEA Last Admin: 06/03/20 16:36 Dose: 4 mg Documented by: Promethazine HCl (Promethazine 25 Mg/Ml Syringe) 12.5 mg IV Q6H PRN PRN PRN Reason: NAUSEA/VOMITING Last Admin: 06/04/20 07:41 Dose: 12.5 mg Documented by: Sodium Chloride (0.9% Saline Lock 10 Ml Syringe) 10 - 40 ml IV UD PRN PRN Reason: SALINE FLUSH Last Admin: 06/04/20 00:24 Dose: 10 ml Documented by: Medical Necessity - Tobacco Use Smoking Status: Former smoker Assessment/Plan 65-year-old male postop day 3 status post right hemicolectomy due to 2 large tubulovillous polyps ileocecal valve and in the ascending colon. 1. Patient complains still having some occasional nausea and is having liquid stools. Leukocytosis of 13.9 sure if it is hemoconcentrated but with the liquid stools will check stool studies. Patient's hemoglobin was elevated 18 likely due to dehydration we will give the patient bolus and encourage p.o. fluids 2. Patient is ambulating halls, continue pain control with Tylenol. 3. Lovenox 40 mg subcu. 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 Rosalba Mack M.D. Pager: [phone] [facility] [address] [place] [address] [address] [place] [address] Office: [phone]
[2020-06-04] MEDS: Lactated Ringers 1,000 ML 100 ML IV ×2 (10:05→20:00)
--- NOTE | 2020-06-04 10:35 | RAD_ITS ---
STUDY: X-RAY - ABDOMEN/PELVIS REASON FOR EXAM: Male, 65 years old. ileus -- portable TECHNIQUE: Single AP view of the abdomen / pelvis. COMPARISON: 06/03/2020 FINDINGS: Normal visualized lung bases. There are dilated, air-filled loops of small bowel in the right and left abdomen, increased since prior exam. There is stable dilatation of the transverse and descending colon. There is no demonstrated free abdominal air. Normal soft tissue structures. Normal visualized osseous structures. RAD/Abdomen Single View IMPRESSION: Increased dilatation of the small bowel loops in the right and left abdomen. Stable dilatation of the transverse and descending colon. Electronically Signed: Leigh Fuchs MD at 11:04 EST Tel , Service support ,
[2020-06-04 10:54] LABS: Differential Comment SCANNED
[2020-06-04] MEDS: Mag Hydrox/Al Hydrox/Simeth 30 ML UDC 15 ML PO (17:19)
--- NOTE | 2020-06-04 20:30 | RAD_ITS ---
STUDY: X-RAY - ABDOMEN/PELVIS REASON FOR EXAM: Male, 65 years old. Nasogastric tube placement TECHNIQUE: Single AP view of the abdomen / pelvis. COMPARISON: Radiographs of earlier today. FINDINGS: Normal visualized lung bases. Nasogastric tube is seen through the esophagus, correlating the proximal stomach, and terminating in the mid stomach. Several abnormal distended loops of small bowel are seen. RAD/Abdomen Single View (Portable) IMPRESSION: Nasogastric tube terminates in the mid stomach. Electronically Signed: Martin Brown MD at 21:08 EST , Service support ,
[2020-06-05] VITALS (12 sets, daily range): BP systolic 134–154; BP diastolic 67–93; PULSE 84–108; RESP 16–20; TEMP 36.2–37; O2SAT 92–98; BMI 34.4
[2020-06-05] MEDS: LORazepam 2 MG/ML Syringe 1 MG IV (00:21)
[2020-06-05] MEDS: Lactated Ringers 1,000 ML 100 ML IV ×3 (00:26→20:59)
--- NOTE | 2020-06-05 07:47 | PCM.PN.SRG ---
Subjective: Patient had emesis last night NG was placed for 750 last night. Minimal within the container this morning however after messing with the NG got another 300 out. Patient denies any abdominal pain --labs pending, patient is having small liquid stool as well - Physical Exam Vitals/I&O's: Vital Signs Temp Pulse Resp BP Pulse Ox 98.6 F 99 20 H 141/81 H 93 06/05/20 05:15 06/05/20 05:15 06/05/20 05:15 06/05/20 05:15 06/05/20 05:15 Oxygen Flow Rate (L/min) 6 Oxygen Delivery Method Room Air Weight: 246 lb 14.684 oz Body Mass Index (BMI) 34.4 Intake and Output for Last 24 Hours 06/03/20 06/04/20 06/05/20 23:59 23:59 23:59 Intake Total 1180 / 1180 4043.33 / 4058.33 458.33 / 458.33 Output Total 750 / 750 Balance 1180 / 1180 4043.33 / 3308.33 -291.67 / -291.67 General: Alert, Oriented x3, Cooperative, No apparent distress HEENT: - - NG in place Lungs: Normal air movement Cardiovascular: Regular rate Abdomen: Soft, Non Tender, Non-Distended, - - Patient dressed clean dry and intact with Steri's Microbiology Past 72 Hours 06/04/20 12:26 Stool Enteric Bacteriology - Final 06/04/20 12:27 Stool C. difficile DNA Amplification - Final Laboratory Results 06/04/20 07:23: Magnesium 2.5 06/04/20 07:23: Sodium 139, Potassium 3.7, Chloride 106, Carbon Dioxide 24.0, Anion Gap 9, BUN 18, Creatinine 1.05, Estim Creat Clear Calc 73.71, Est GFR (MDRD) Af Amer 91, Est GFR (MDRD) Non-Af 75, BUN/Creatinine Ratio 17.1, Glucose 131 H, Calcium 9.4 06/04/20 07:23: WBC 13.9 H, RBC 5.88, Hgb 18.0 H*, Hct 53.8, MCV 91.5, MCH 30.6, MCHC 33.5, RDW Std Deviation 41.8, RDW Coeff of Rd 12.4, Plt Count 240, MPV 10.7, Immature Gran % (Auto) 0.400, Neut % (Auto) 78.2 H, Lymph % (Auto) 11.3 L, [place] % (Auto) 9.4, Eos % (Auto) 0.3, Baso % (Auto) 0.4, Absolute Neuts (auto) 10.9 H, Absolute Lymphs (auto) 1.57, Nucleated RBC % 0, Differential Comment SCANNED, Diff Path Review May foll Current Medications Acetaminophen (Acetaminophen 500 Mg Tablet) 1,000 mg PO Q6 [facility] Last Admin: 06/05/20 04:36 Dose: Not Given Documented by: Al Hydroxide/Mg Hydroxide (Mag Hydrox/Al Hydrox/Simeth 30 Ml Udc) 15 ml PO Q4H PRN PRN PRN Reason: INDIGESTION Last Admin: 06/04/20 17:19 Dose: 15 ml Documented by: Docusate Sodium (Docusate Sodium 100 Mg Capsule) 100 mg PO BID [facility] Last Admin: 06/04/20 22:28 Dose: Not Given Documented by: Pantoprazole Sodium 40 mg/ (Sodium Chloride) 110 mls @ 330 mls/hr IV Q24 [facility] Last Infusion: 06/04/20 08:00 Dose: Infused Documented by: Lactated Ringer's () 1,000 mls @ 100 mls/hr IV .Q10H [facility] Last Admin: 06/05/20 00:26 Dose: 100 mls/hr Documented by: Lorazepam (Lorazepam 2 Mg/Ml Syringe) 1 mg IV Q12H [facility] Last Admin: 06/05/20 00:21 Dose: 1 mg Documented by: Magnesium Chloride (Magnesium Chloride 64 Mg Delay Rel.Tablet) 128 mg PO DAILY PRN PRN PRN Reason: Constipation Ondansetron HCl (Ondansetron Odt 4 Mg Tablet) 4 mg PO Q6H PRN PRN PRN Reason: NAUSEA Last Admin: 06/03/20 16:36 Dose: 4 mg Documented by: Ondansetron HCl (Ondansetron 4 Mg/2 Ml Vial) 4 mg IV Q6H PRN PRN PRN Reason: NAUSEA Promethazine HCl (Promethazine 25 Mg/Ml Syringe) 12.5 mg IV Q6H PRN PRN PRN Reason: NAUSEA/VOMITING Last Admin: 06/04/20 19:57 Dose: 12.5 mg Documented by: Sodium Chloride (0.9% Saline Lock 10 Ml Syringe) 10 - 40 ml IV UD PRN PRN Reason: SALINE FLUSH Last Admin: 06/04/20 00:24 Dose: 10 ml Documented by: Throat Lozenges (Benzocaine/Menthol 1 Lozenge) 1 lozenge MUCOUS MEM Q2H PRN PRN PRN Reason: sore throat Medical Necessity - Tobacco Use Smoking Status: Former smoker Assessment/Plan 65-year-old male postop day 4 status post right hemicolectomy due to 2 large tubulovillous polyps ileocecal valve and in the ascending colon. 1. Ileus. Continue NG/IV fluids, labs pending.?We will check CT abdomen pelvis with IV contrast only 2. Patient is ambulating halls, continue pain control with Tylenol. 3. Protonix/Lovenox 40 mg subcu. Rosalba Mack M.D. Pager: [phone] [facility] [address] [place] [address], [facility] [place], [address] [place] [address] Office: [phone]
--- NOTE | 2020-06-05 08:05 | CT_ITS ---
STUDY: CT ABDOMEN AND PELVIS WITH CONTRAST REASON FOR EXAM: Male, 65 years old. nausea, vomitting, abd distention -- s/p right hemicolectomy 06/01/20 RADIATION DOSAGE (If Supplied By Facility): CTDIvol = ( 20.11 ) mGy, DLP = ( 1394.58 ) mGycm TECHNIQUE: Transaxial images were obtained from the dome of the diaphragm to the symphysis pubis without oral contrast. IV 100mL Isovue-370 was administered. Sagittal and coronal images were reconstructed. Individualized dose optimization techniques were used for this CT. COMPARISON: 05/24/2020 FINDINGS: Some bibasilar discoid atelectasis. The visualized portions of the heart are within normal limits. Small amount of ascites. No loculated fluid collection to suggest postoperative seroma, hematoma, or abscess. Normal liver. The gallbladder is contracted. Normal spleen. Normal pancreas. Normal bilateral adrenal glands. Normal right kidney. Normal left kidney. Normal visualized stomach. Nasogastric tube with the tip in the second portion the duodenum. There is mild dilatation of the small bowel to the ileocolic anastomosis consistent with mild obstruction. No pneumatosis to suggest ischemia. No pneumoperitoneum to suggest perforation. Status post right hemicolectomy with some stranding at the ileocolonic anastomosis consistent with recent surgery.. There is non-visualization of the appendix. Normal abdominal aorta. Normal inferior vena cava. Normal retroperitoneum. Normal urinary bladder. Normal abdominal wall. Normal osseous structures. CT/Abdomen/Pelvis W IV Cont ONLY IMPRESSION: Status post recent right hemicolectomy with mild obstruction at the ileocolonic anastomosis. Electronically Signed: Alphonso Brito MD at 9:54 EST Tel , Service support ,
[2020-06-05 08:06] LABS: Absolute Lymphocyte Count 1.44 X10^3/uL (0.83-4.51); Absolute Neutrophil Count 8.9 X10^3/uL (2.0-7.7); Basophil# 0.05 X10^3/uL; Basophil% 0.4 % (0-1); Eosinophil# 0.12 X10^3/uL; Eosinophils% 1.1 % (0-5); Hematocrit 50.9 % (40-54); Hemoglobin 16.4 g/dL (13.0-16.5); Lymphocyte # 1.44 X10^3/ul (4.0); Lymphocyte % 12.6 % (19-41); Mean Corp Hgb Conc 32.2 g/dL (32-36); Mean Corpuscular Hgb 29.8 pg (27.0-32.0); Mean Corpuscular Volume 92.5 fL (80-94); Mean Platelet Vol. 11.1 fl (6.2-12.0); Monocyte# 0.87 X10^3/uL; Monocyte% 7.6 % (0-10); NRBC Flagged by Analyzer 0 % (0-5); Neutrophil # 8.88 X10^3/uL (2.7-7.7); Neutrophil % 77.9 % (47-70); Platelet Count 242 K/mm3 (150-450); RBC Distribution Width CV 12.5 % (11.6-14.6); White Blood Count 11.4 K/mm3 (4.4-11.0)
[2020-06-05 08:33] LABS: Anion Gap 9 (5-15); BUN 23 mg/dL (7-18); BUN/Creat Ratio 22.8 RATIO (10-20); Calcium,Total 9.4 mg/dL (8.5-10.1); Chloride 104 mmol/L (98-107); Creatinine, Serum 1.01 mg/dL (0.70-1.30); EST Glomerular Filtration Rate 79 mL/min (>60); Est Glom Filt Rate - Afr Amer 95 mL/min (>60); Estimated Creatinine Clearance 76.63 ml/min; Glucose 123 mg/dL (74-106); Potassium 3.3 mmol/L (3.5-5.1); Sodium Level 140 mmol/L (136-145)
[2020-06-05] MEDS: BENZOCAINE/MENTHOL 1 LOZENGE MUCOUS MEM ×3 (09:52→18:15)
[2020-06-05] MEDS: Potassium Chloride 10mEq/100mL 10 MEQ/100 ML IV.SOLN. 100 MEQ IV BOLUS (12:19)
--- NOTE | 2020-06-05 13:00 | RAD_ITS ---
EXAM: FL SMALL BOWEL FOLLOW THROUGH CLINICAL INDICATION: modified--ileus -- gastrografin-KUB (portable ok)at 1 hr 3 hr after TECHNIQUE: Fluoroscopy of the small bowel including multiple serial delayed images following oral contrast administration. Fluoroscopic guidance was provided by a physician. This report was created using 10sec report generation technology. No fluoroscopy time. 2 overhead images, labeled 60 minutes. COMPARISON: CT 06/05/2020. FINDINGS: SMALL BOWEL: Dilated duodenum and proximal jejunum are filled with contrast with diameter of distal duodenum measuring 5.9 cm. The bowel contrast is predominantly in the stomach, duodenum and proximal most jejunum. Several air-filled bowel seen in the central and right lower abdomen, some of which is colon. RAD/Small Bowel Series Only IMPRESSION: Small bowel obstruction. Limited detail given proximal dominant contrast. Electronically Signed: Quoc Alex MD (Brooks) at 15:47 EST , Service support ,
[2020-06-05] MEDS: Potassium Chloride 10mEq/100mL 10 MEQ/100 ML IV.SOLN. 70 MEQ IV BOLUS ×3 (14:18→18:19)
--- NOTE | 2020-06-05 16:06 | PN_ITS ---
Progress Note CT abdomen/pelvis did show dilated small bowel with fluid reported possible obstruction near anastomosis unable to see a transition on my read. Did attempt p.o. contrast study however after 1 hour did not appear to be going anywhere after the first part of the small bowel is mostly sitting in the stomach and duodenum. Did discuss with patient that he would likely need surgery to take a look he was agreeable. He was hooked to suction and got a total of 900 cc out. Discussed diagnostic laparoscopy, possible laparotomy, possible bowel resection with patient and his . Discussed risks and benefits they are agreeable to proceed. Rosalba Mack M.D. Pager: [phone] [facility] [address] [place] [address], [facility], [address] [place] [address] Office: [phone] STROKE Vital Signs/Narrative: Vital Signs Temp Pulse Resp BP Pulse Ox 06/05/20 14:47 98.3 F 108 H 16 151/93 H 97
--- NOTE | 2020-06-05 17:34 | OP.PCM_ITS ---
Report of Operation Date of Procedure: 06/05/20 Pre-Operative Diagnosis: Small bowel distention, possible bowel obstruction Post-Operative Diagnosis: Ileus Surgery/Procedure Performed:: Diagnostic laparoscopy policy change clerk: Joy Salazar Type of Anesthesia:: General/Supplemental Anesthesiologist: Duglas Thrasher Special Medications: ancef 2 grams IV x1 Estimated Blood Loss (mL): <10 cc Fluids Replaced: 400 cc Description of Procedure: Indications: 65-year-old male status post right hemicolectomy 06/01/2020 with prolonged ileus and questionable obstruction just proximal to the anastomosis per CT, nausea and vomiting and NG output about 1500 last night/today total. Description of procedure. Patient was brought into the operating room placed prone on operating table the right arm was tucked and padded appropriately. Timeout was completed verifying correct patient, procedure, site, positioning, special equipment prior to beginning procedure. The abdomen was prepped draped in usual sterile fashion with Betadine. Incision was made with a 15 blade scalpel inferior to umbilicus. This was deepened to the fascia. Fascia was elevated and incised. Entry and to the abdomen was confirmed visually. Campbell trocar placed and the abdomen insufflated to 12 to 15 mmHg. Patient tolerated insufflation well. Laparoscope was placed. Two additional 5 mm trochars were placed in the left upper quadrant and left lower quadrant. The anastomosis was visualized. There is no noted stricture or adhesion or twist of the small bowel leading up to the anastomosis. There was distended small bowel up into the anastomosis along with distended colon after the anastomosis. Consistent with ileus. Abdomen was allowed to collapse and trochars removed under direct visualization. The 12 mm trocar site was closed with 0 Vicryl [id number] suture and the skin was closed with 4-0 Monocryl suture. Steri-Strips were placed. Patient was extubated. Patient tolerated procedure well and was taken to the postanesthesia care unit. - Complications none
[2020-06-05] MEDS: Bupivacaine Mpf 0.5% 30 ML VIAL (17:38)
[2020-06-05] MEDS: LORazepam 2 MG/ML Syringe 0.5 MG IV (22:17)
[2020-06-06 04:13] VITALS: BP 154/92; PULSE 89; RESP 16; TEMP 36.7; O2SAT 97
[2020-06-06] MEDS: BENZOCAINE/MENTHOL 1 LOZENGE MUCOUS MEM ×2 (07:16→13:40)
[2020-06-06] MEDS: Lactated Ringers 1,000 ML 100 ML IV ×2 (07:53→17:51)
[2020-06-06 09:36] VITALS: BP 135/86; PULSE 96; RESP 16; TEMP 36.5; O2SAT 96
--- NOTE | 2020-06-06 09:48 | PCM.PN.SRG ---
Subjective: Patient diagnostic laparoscopy not show any source of obstruction was only consistent with ileus. Patient still denies any flatus or bowel movement since surgery. NG put out about 300 overnight but it is in the second portion of the duodenum. Patient has not needed any medication for pain and denies any abdominal pain other than normal at the infraumbilical incision - Physical Exam Vitals/I&O's: Vital Signs Temp Pulse Resp BP Pulse Ox 97.7 F L 96 16 135/86 H 96 06/06/20 09:36 06/06/20 09:36 06/06/20 09:36 06/06/20 09:36 06/06/20 09:36 Oxygen Flow Rate (L/min) 10 Oxygen Delivery Method Room Air Weight: 246 lb 14.684 oz Body Mass Index (BMI) 34.4 Intake and Output for Last 24 Hours 06/04/20 06/05/20 06/07/20 23:59 23:59 00:59 Intake Total 4043.33 / 4058.33 2900.00 / 2900.00 1030 / 1030 Output Total 2100 / 2400 650 / 650 Balance 4043.33 / 3308.33 800.00 / 500.00 380 / 380 General: Alert, Oriented x3, Cooperative, No apparent distress HEENT: Atraumatic Lungs: Normal air movement Cardiovascular: Regular rate Abdomen: Soft, Non-Distended, Tender - Minimal infraumbilical incision and left side incisions, no peritoneal signs Microbiology Past 72 Hours 06/04/20 12:26 Stool Enteric Bacteriology - Final 06/04/20 12:27 Stool C. difficile DNA Amplification - Final Current Medications Acetaminophen (Acetaminophen 500 Mg Tablet) 1,000 mg PO Q6 [facility] Last Admin: 06/06/20 05:12 Dose: Not Given Documented by: Al Hydroxide/Mg Hydroxide (Mag Hydrox/Al Hydrox/Simeth 30 Ml Udc) 15 ml PO Q4H PRN PRN PRN Reason: INDIGESTION Last Admin: 06/04/20 17:19 Dose: 15 ml Documented by: Docusate Sodium (Docusate Sodium 100 Mg Capsule) 100 mg PO BID [facility] Last Admin: 06/06/20 09:42 Dose: Not Given Documented by: Pantoprazole Sodium 40 mg/ (Sodium Chloride) 110 mls @ 330 mls/hr IV Q24 [facility] Last Admin: 06/06/20 09:33 Dose: 330 mls/hr Documented by: Lactated Ringer's () 1,000 mls @ 100 mls/hr IV .Q10H JOHN Last Admin: 06/06/20 08:04 Dose: Not Given Documented by: Lorazepam (Lorazepam 2 Mg/Ml Syringe) 0.5 mg IV Q6H PRN PRN PRN Reason: ANXIETY Last Admin: 06/05/20 22:17 Dose: 0.5 mg Documented by: Magnesium Chloride (Magnesium Chloride 64 Mg Delay Rel.Tablet) 128 mg PO DAILY PRN PRN PRN Reason: Constipation Ondansetron HCl (Ondansetron Odt 4 Mg Tablet) 4 mg PO Q6H PRN PRN PRN Reason: NAUSEA Last Admin: 06/03/20 16:36 Dose: 4 mg Documented by: Ondansetron HCl (Ondansetron 4 Mg/2 Ml Vial) 4 mg IV Q6H PRN PRN PRN Reason: NAUSEA Promethazine HCl (Promethazine 25 Mg/Ml Syringe) 12.5 mg IV Q6H PRN PRN PRN Reason: NAUSEA/VOMITING Last Admin: 06/04/20 19:57 Dose: 12.5 mg Documented by: Sodium Chloride (0.9% Saline Lock 10 Ml Syringe) 10 - 40 ml IV UD PRN PRN Reason: SALINE FLUSH Last Admin: 06/04/20 00:24 Dose: 10 ml Documented by: Throat Lozenges (Benzocaine/Menthol 1 Lozenge) 1 lozenge MUCOUS MEM Q2H PRN PRN PRN Reason: sore throat Last Admin: 06/06/20 07:16 Dose: 1 lozenge Documented by: Medical Necessity - Tobacco Use Smoking Status: Former smoker Assessment/Plan 65-year-old male postop day 5 status post right hemicolectomy due to 2 large tubulovillous polyps ileocecal valve and in the ascending colon & day 1 diagnostic laparoscopy consistent with ileus 1. Ileus. Continue NG/IV fluids, await bowel function 2. Patient is ambulating halls, continue pain control with Tylenol. 3. Protonix/Lovenox 40 mg subcu. Rosalba Mack M.D. Pager: [phone] [facility] [address] [place] [address], [facility], [address] [place] [id number] Office: [phone]
[2020-06-06 16:42] VITALS: BP 135/78; PULSE 103; RESP 20; TEMP 36.6; O2SAT 94
[2020-06-06] MEDS: Acetaminophen 500 MG Tablet 1000 MG PO (20:22)
[2020-06-06] MEDS: LORazepam 2 MG/ML Syringe 0.5 MG IV (22:13)
[2020-06-06 22:20] VITALS: BP 153/88; PULSE 97; RESP 18; TEMP 36.6; O2SAT 98
[2020-06-07] MEDS: Lactated Ringers 1,000 ML 100 ML IV (03:34)
[2020-06-07 04:02] VITALS: BP 160/82; PULSE 96; RESP 16; TEMP 36.6; O2SAT 98
[2020-06-07] MEDS: Acetaminophen 500 MG Tablet 1000 MG PO ×2 (06:46→14:48)
[2020-06-07 06:59] LABS: Anion Gap 7 (5-15); BUN 17 mg/dL (7-18); BUN/Creat Ratio 20.9 RATIO (10-20); Calcium,Total 8.8 mg/dL (8.5-10.1); Chloride 107 mmol/L (98-107); Creatinine, Serum 0.81 mg/dL (0.70-1.30); EST Glomerular Filtration Rate 101 mL/min (>60); Est Glom Filt Rate - Afr Amer 122 mL/min (>60); Estimated Creatinine Clearance 95.55 ml/min; Glucose 98 mg/dL (74-106); Magnesium 2.2 mg/dL (1.6-2.6); Phosphorus 3.1 mg/dL (2.5-4.9); Potassium 3.4 mmol/L (3.5-5.1); Sodium Level 143 mmol/L (136-145)
[2020-06-07 10:05] VITALS: BP 153/77; PULSE 94; RESP 18; TEMP 36.8; O2SAT 93
--- NOTE | 2020-06-07 10:13 | PCM.PN.SRG ---
Subjective: Patient had large amount of flatus this morning., NG has been clamped since 630 and only about 100 cc came out through the night. Patient denies any nausea or vomiting. - Physical Exam Vitals/I&O's: Vital Signs Temp Pulse Resp BP Pulse Ox 98.3 F 94 18 153/77 H 93 06/07/20 10:05 06/07/20 10:05 06/07/20 10:05 06/07/20 10:05 06/07/20 10:05 Oxygen Flow Rate (L/min) 10 Oxygen Delivery Method Room Air Weight: 246 lb 14.684 oz Body Mass Index (BMI) 34.4 Intake and Output for Last 24 Hours 06/05/20 06/06/20 06/07/20 22:59 23:59 23:59 Intake Total 1743.34 / 1743.34 Output Total 550 / 550 Balance 1193.34 / 1193.34 General: Alert, Oriented x3, Cooperative, No apparent distress HEENT: Atraumatic Lungs: Normal air movement Cardiovascular: Regular rate Abdomen: Soft, Non-Distended, Tender - Incisions clean dry and intact. No peritoneal signs Extremities: No clubbing, No cyanosis, No edema Microbiology Past 72 Hours 06/04/20 12:26 Stool Enteric Bacteriology - Final 06/04/20 12:27 Stool C. difficile DNA Amplification - Final Laboratory Results 06/07/20 06:24: Sodium 143, Potassium 3.4 L, Chloride 107, Carbon Dioxide 29.0, Anion Gap 7, BUN 17, Creatinine 0.81, Estim Creat Clear Calc 95.55, Est GFR (MDRD) Af Amer 122, Est GFR (MDRD) Non-Af 101, BUN/Creatinine Ratio 20.9 H, Glucose 98, Calcium 8.8, Phosphorus 3.1, Magnesium 2.2 Current Medications Acetaminophen (Acetaminophen 500 Mg Tablet) 1,000 mg PO Q6 [facility] Last Admin: 06/07/20 06:46 Dose: 1,000 mg Documented by: Al Hydroxide/Mg Hydroxide (Mag Hydrox/Al Hydrox/Simeth 30 Ml Udc) 15 ml PO Q4H PRN PRN PRN Reason: INDIGESTION Last Admin: 06/04/20 17:19 Dose: 15 ml Documented by: Docusate Sodium (Docusate Sodium 100 Mg Capsule) 100 mg PO BID [facility] Last Admin: 06/06/20 21:24 Dose: Not Given Documented by: Pantoprazole Sodium 40 mg/ (Sodium Chloride) 110 mls @ 330 mls/hr IV Q24 [facility] Last Admin: 06/07/20 09:59 Dose: 330 mls/hr Documented by: Lactated Ringer's () 1,000 mls @ 100 mls/hr IV .Q10H [facility] Last Infusion: 06/07/20 09:59 Dose: 0 mls/hr Documented by: Potassium Chloride () 10 meq in 100 mls @ 100 mls/hr IV BOLUS Q1H [facility] Stop: 06/07/20 11:59 Lorazepam (Lorazepam 2 Mg/Ml Syringe) 0.5 mg IV Q6H PRN PRN PRN Reason: ANXIETY Last Admin: 06/06/20 22:13 Dose: 0.5 mg Documented by: Magnesium Chloride (Magnesium Chloride 64 Mg Delay Rel.Tablet) 128 mg PO DAILY PRN PRN PRN Reason: Constipation Ondansetron HCl (Ondansetron Odt 4 Mg Tablet) 4 mg PO Q6H PRN PRN PRN Reason: NAUSEA Last Admin: 06/03/20 16:36 Dose: 4 mg Documented by: Ondansetron HCl (Ondansetron 4 Mg/2 Ml Vial) 4 mg IV Q6H PRN PRN PRN Reason: NAUSEA Promethazine HCl (Promethazine 25 Mg/Ml Syringe) 12.5 mg IV Q6H PRN PRN PRN Reason: NAUSEA/VOMITING Last Admin: 06/04/20 19:57 Dose: 12.5 mg Documented by: Sodium Chloride (0.9% Saline Lock 10 Ml Syringe) 10 - 40 ml IV UD PRN PRN Reason: SALINE FLUSH Last Admin: 06/04/20 00:24 Dose: 10 ml Documented by: Throat Lozenges (Benzocaine/Menthol 1 Lozenge) 1 lozenge MUCOUS MEM Q2H PRN PRN PRN Reason: sore throat Last Admin: 06/06/20 13:40 Dose: 1 lozenge Documented by: Medical Necessity - Tobacco Use Smoking Status: Former smoker Assessment/Plan 65-year-old male postop day 6 status post right hemicolectomy due to 2 large tubulovillous polyps ileocecal valve and in the ascending colon & day 2 diagnostic laparoscopy consistent with ileus 1. Ileus resolving. DC NG start clear full liquids 2. Patient is ambulating halls, continue pain control with Tylenol. 3. Protonix/Lovenox 40 mg subcu. Rosalba Mack M.D. Pager: [phone] [facility] [address] [place] [address], [facility], [address] [place] [address] Office: [phone]
[2020-06-07] MEDS: Docusate Sodium 100 MG Capsule PO (11:13)
[2020-06-07] MEDS: Potassium Chloride Oral Tablet 20 MEQ 40 MEQ PO (11:13)
[2020-06-07 12:11] LABS: Pathologist Review Reviewed
[2020-06-07 14:46] VITALS: BP 141/79; PULSE 88; RESP 18; TEMP 37.8; O2SAT 96
--- NOTE | 2020-06-07 16:02 | DCINST_ITS ---
Discharge Diet: - - transitional Discharge Activity: May Shower Lifting Restrictions: no lifting > 20 lb for 2 weeks, no strenuous exercise for 4 wks Call your doctor if your incision/area has: Continuous Slow Oozing, Sudden Increased Bleeding, Increased Pain/ Swelling, Increased Redness, Foul Smelling Discharge, Swelling at the incision site Call your doctor if you observe: Fever of 101 or Higher Remove Dressing in (days):: 0 - ok to remove opsites; steri will fall off in 7- 10 days if they don't ok to remove after 10 days Allergies/Adverse Reactions: Allergies No Known Allergies Allergy (Verified 05/28/20 14:42) Medications to take at Discharge lorazepam 1 mg tablet 1 mg PO Q12H PRN tab 05/18/20 neomycin 500 mg tablet 500 mg PO .COMPLEX #6 tab 05/30/20 metronidazole 500 mg tablet 500 mg PO .COMPLEX #3 tab 05/31/20 Primary Care Physician: David Wagoner DO [Primary Care Provider] - Test Results: Test results from this visit will be discussed in further detail at your follow- up appointment, if applicable. Please Follow Up With: Rosalba Mack MD - after 5pm /weekend call with any concerns When: call office for f/u appt in 2 weeks
[2020-06-07 17:29] VITALS: TEMP 37
[2020-06-07] MEDS: 0.9% Saline Lock 10 ML Syringe IV ×2 (18:22→21:56)
[2020-06-07 20:35] VITALS: BP 131/75; PULSE 88; RESP 16; TEMP 36.9; O2SAT 96
[2020-06-07] MEDS: LORazepam 2 MG/ML Syringe 0.5 MG IV (21:56)
[2020-06-08 05:20] VITALS: BP 145/72; PULSE 77; RESP 16; TEMP 36.9; O2SAT 95
--- NOTE | 2020-06-08 07:58 | PN.SURG_ITS ---
Subjective: Patient evaluated sitting in the chair. He denies nausea, vomiting. He is tolerating a diet well. He notes intermittent cramping prior to bowel movements. Cramping is resolved following a BM. He notes no abdominal pain. - Physical Exam Vitals/I&O's: Vital Signs Temp Pulse Resp BP Pulse Ox 98.4 F 77 16 145/72 H 95 06/08/20 05:20 06/08/20 05:20 06/08/20 05:20 06/08/20 05:20 06/08/20 05:20 Oxygen Flow Rate (L/min) 10 Oxygen Delivery Method Room Air Weight: 246 lb 14.684 oz Body Mass Index (BMI) 34.4 Intake and Output for Last 24 Hours 06/06/20 06/07/20 06/08/20 23:59 23:59 23:59 Intake Total 2649.34 / 2649.34 750 / 750 Output Total 550 / 550 Balance 2099.34 / 2099.34 750 / 750 General: Alert, Oriented x3, Cooperative Abdomen: Bowel Sounds Present, Soft, Non Tender, - - Incisions c/d/i. No active bleeding noted. Laboratory Results 06/04/20 07:23: Diff Path Review Reviewed Current Medications Acetaminophen (Acetaminophen 500 Mg Tablet) 1,000 mg PO Q6 [facility] Last Admin: 06/08/20 05:41 Dose: Not Given Documented by: Al Hydroxide/Mg Hydroxide (Mag Hydrox/Al Hydrox/Simeth 30 Ml Udc) 15 ml PO Q4H PRN PRN PRN Reason: INDIGESTION Last Admin: 06/04/20 17:19 Dose: 15 ml Documented by: Docusate Sodium (Docusate Sodium 100 Mg Capsule) 100 mg PO BID [facility] Last Admin: 06/07/20 20:35 Dose: Not Given Documented by: Lorazepam (Lorazepam 2 Mg/Ml Syringe) 0.5 mg IV Q6H PRN PRN PRN Reason: ANXIETY Last Admin: 06/07/20 21:56 Dose: 0.5 mg Documented by: Magnesium Chloride (Magnesium Chloride 64 Mg Delay Rel.Tablet) 128 mg PO DAILY PRN PRN PRN Reason: Constipation Ondansetron HCl (Ondansetron Odt 4 Mg Tablet) 4 mg PO Q6H PRN PRN PRN Reason: NAUSEA Last Admin: 06/03/20 16:36 Dose: 4 mg Documented by: Ondansetron HCl (Ondansetron 4 Mg/2 Ml Vial) 4 mg IV Q6H PRN PRN PRN Reason: NAUSEA Pantoprazole Sodium (Pantoprazole Sodium 40 Mg Tablet) 40 mg PO DAILY JOHN Promethazine HCl (Promethazine 25 Mg/Ml Syringe) 12.5 mg IV Q6H PRN PRN PRN Reason: NAUSEA/VOMITING Last Admin: 06/04/20 19:57 Dose: 12.5 mg Documented by: Sodium Chloride (0.9% Saline Lock 10 Ml Syringe) 10 - 40 ml IV UD PRN PRN Reason: SALINE FLUSH Last Admin: 06/07/20 21:56 Dose: 10 ml Documented by: Throat Lozenges (Benzocaine/Menthol 1 Lozenge) 1 lozenge MUCOUS MEM Q2H PRN PRN PRN Reason: sore throat Last Admin: 06/06/20 13:40 Dose: 1 lozenge Documented by: Medical Necessity - Tobacco Use Smoking Status: Former smoker Assessment/Plan I am following this patient in conjunction with Dr. Mack. Impression: S/p laparoscopic right hemicolectomy. Post-operative ileus. Transitional diet instructions given Ready for discharge Inpatient E&M: 31357 Subs Hosp L1 - Post-op
[2020-06-08 08:56] VITALS: BP 148/74; PULSE 86; RESP 18; TEMP 36.7; O2SAT 98
[2020-06-08] MEDS: Pantoprazole Sodium 40 MG Tablet PO (09:08)
--- NOTE | 2020-06-08 09:45 | PHA.DC.MR ---
Pharmacy Service has performed discharge medication reconciliation for this patient. The patient's discharge medication list was reviewed for discrepancies and discrepancies were resolved. Home Medications lorazepam 1 mg tablet 1 mg PO Q12H PRN tab 05/18/20 neomycin 500 mg tablet 500 mg PO .COMPLEX #6 tab 05/30/20 metronidazole 500 mg tablet 500 mg PO .COMPLEX #3 tab 05/31/20
--- NOTE | 2020-06-08 13:44 | DS.PCM_ITS ---
Discharge Date and Diagnosis Date of Admission: 06/01/20 Date of Discharge: 06/08/20 - Primary Discharge Diagnosis Acute Problems: Tubulovillous adenoma of the right colon x2 too large to remove endoscopically Status post right hemicolectomy Postoperative ileus?resolved - Secondary Discharge Diagnosis Chronic Problems: Chronic Problems (Last Updated 05/28/20 @ 09:22 by Damari Nicholson) FH: colon cancer (Chronic) Sister age 69 and mom at 65 Hospital Course and Treatment Operations: - - Laparoscopic right hemicolectomy on 06/01/2020, Diagnostic laparoscopy on 06/05/2020 Procedures: None Summary of Care Provided: The patient is a 65 year old M presented for laparoscopic right hemicolectomy due to tubulovillous adenomas unable to be removed endoscopically 06/01/2020. Pathology did show this just to be tubulovillous adenoma with high-grade dysplasia for the one at the ileocecal valve and then tubulovillous adenoma in the ascending colon no evidence of cancer. Patient did have a prolonged hospital course due to postoperative ileus?he did initially have some liquid stools however also continued to have nausea.. 06/05/2020T abdomen pelvis question possible obstruction and p.o. contrast stayed in stomach and first part of the small bowel. Patient also underwent diagnostic laparoscopy on 06/05/2020 due to increased NG put questionable bowel obstruction which was just consistent with an ileus postoperatively.On 06/07/2020 patient passed flatus and NG was able to be removed patient was able to tolerate clears as well as a transitional diet. Patient was DC'd home on 06/08. - Physical Exam Vitals/I&O's: Vital Signs Temp Pulse Resp BP Pulse Ox 98.1 F 86 18 148/74 H 98 06/08/20 08:56 06/08/20 08:56 06/08/20 08:56 06/08/20 08:56 06/08/20 08:56 Oxygen Flow Rate (L/min) 10 Oxygen Delivery Method Room Air Weight: 246 lb 14.684 oz Body Mass Index (BMI) 34.4 Intake and Output for Last 24 Hours 06/06/20 06/07/20 06/08/20 23:59 23:59 23:59 Intake Total 2649.34 / 2649.34 750 / 750 Output Total 550 / 550 Balance 2099.34 / 2099.34 750 / 750 General: Alert, Oriented x3, Cooperative, No apparent distress HEENT: Atraumatic Lungs: Normal air movement Cardiovascular: Regular rate Abdomen: Soft, Non-Distended, Tender - Minimally tender near incisions clean dressings dry and intact, no peritoneal signs Extremities: No clubbing, No cyanosis, No edema Discharge Diet: - - transitional Discharge Activity: May Shower Call your doctor if your incision/area has: Continuous Slow Oozing, Sudden Increased Bleeding, Increased Pain/ Swelling, Increased Redness, Foul Smelling Discharge, Swelling at the incision site Call your doctor if you observe: Fever of 101 or Higher Remove Dressing in (days):: 0 - ok to remove opsites; steri will fall off in 7- 10 days if they don't ok to remove after 10 days Home Medications: Medications to take at Discharge lorazepam 1 mg tablet 1 mg PO Q12H PRN tab 05/18/20 neomycin 500 mg tablet 500 mg PO .COMPLEX #6 tab 05/30/20 metronidazole 500 mg tablet 500 mg PO .COMPLEX #3 tab 05/31/20 Primary Care Physician: David Wagoner DO [Primary Care Provider] - Please Follow Up With: Rosalba Mack MD - after 5pm /weekend call [phone] with any concerns When: call office for f/u appt in 2 weeks Disposition: Home Minutes spent on discharge:: 15 Patient Condition:: Good Medical Necessity - Tobacco Use Smoking Status: Former smoker Meaningful Use Info Meaningful Use Diagnoses (Choose all that apply): None applicable
== END 2020-06-08 10:48 | disposition home or self-care (01) | DRG 330 ==
LOC: ACINP 08:57 → MS3 14:30
PROVIDERS: Anesthesiology; Admitting Provider Surgery; PCP Family Medicine; Referring Provider Surgery; Visit Provider Surgery
PROC: 0DTF4ZZ Resection of Right Large Intestine, Percutaneous Endoscopic Approach (ICD-10-PCS; CPT 44205; principal; 2020-06-01 10:45)
PROC: 0DJD4ZZ Inspection of Lower Intestinal Tract, Percutaneous Endoscopic Approach (ICD-10-PCS; CPT 49320; principal; 2020-06-05 16:30)
DX: D12.2 Benign neoplasm of ascending colon (principal); K56.7 Ileus, unspecified; Z20.828 Contact with and (suspected) exposure to other viral communicable diseases; M35.3 Polymyalgia rheumatica; K58.9 Irritable bowel syndrome, unspecified; F41.9 Anxiety disorder, unspecified; Z87.891 Personal history of nicotine dependence; Z79.899 Other long term (current) drug therapy; Z80.0 Family history of malignant neoplasm of digestive organs
CPT/HCPCS: 36415; 74018; 74177; 74250; 80048; 82962; 83735; 84100; 85025; 85027; 87426; 87493; 87506; 88304; 88305; 88307; 99251; C9803; J7040; J7050; J7120; Q9967; A4216; C1760; G0463; J2405; J3490

== ENCOUNTER → 2020-09-16 15:22 | Outpatient (CLI) | payer MEDICARE, OTHER, BC, SELFPAY ==
[2020-06-05 15:44] VITALS: BMI 34.4
--- NOTE | 2020-09-16 15:27 | RAD_ITS ---
STUDY: X-RAY - LEFT FOOT CLINICAL: Male, 65 years old. MID FOOT PAIN TECHNIQUE: view(s) of the foot. COMPARISON: None. FINDINGS: Normal talus, calcaneus, and tarsal bones. Normal visualized subtalar, talonavicular, calcaneocuboid, tarsal and tarsometatarsal articulations. Normal metatarsi. Normal metatarsophalangeal joint of the great toe. Normal tibial and fibular sesamoid bones. Normal interphalangeal joint of the great toe. Normal phalanges of the great toe. Normal second through fifth metatarsophalangeal joints. Normal interphalangeal joints and phalanges of the lesser toes. The soft tissue structures are unremarkable. RAD/Foot min 3 Views IMPRESSION: Normal x-ray examination of the foot. Electronically Signed: Juan Akers, at 14:50 EDT Tel , Service support ,
== END ==
LOC: MTRAD 15:26
PROVIDERS: PCP Family Medicine; Referring Provider Family Medicine; Visit Provider Family Medicine
DX: M79.672 Pain in left foot (principal)
CPT/HCPCS: 73630

== ENCOUNTER 2021-07-25 06:26 | Day surgery (SDC) | payer MEDICARE, OTHER, BC, SELFPAY ==
[2021-07-25 07:10] VITALS: BP 172/99; PULSE 80; RESP 16; TEMP 36.9; O2SAT 98; BMI 36.1
[2021-07-25] MEDS: Lactated Ringers 1,000 ML 15 ML IV (07:12)
--- NOTE | 2021-07-25 07:16 | H&P.OPEN ---
HPI - General HPI Narrative SARAH PALMER, is a 66 M who presents for colonoscopy due to piecemeal removal of 10 to 16 mm tubulovillous adenoma in sigmoid colon at 23 cm. Patient also underwent a right hemicolectomy on 06/01/2020 due to tubulovillous adenoma with high-grade dysplasia. Patient was last colonoscopy was 05/24/2020 where he had 12 polyps along with the 2 larger ones and they ascending and ileocecal valve area and then the piecemeal removal 1 in the sigmoid. Patient denies any blood in stool has bowel movements daily. Patient does have family history of colon cancer as well. [facility] Medical History (Updated 07/21/21 @ 11:38 by Nadine Hunter) Alcohol use Fatty liver Former smoker IBS (irritable bowel syndrome) Multiple polyps of sigmoid colon Multiple thyroid nodules PMR (polymyalgia rheumatica) Renal calculi Wears dentures Wears glasses Home Medications NK 07/21/21 [History Last Taken Unknown] Allergy/AdvReac Type Severity Reaction Status Date / Time No Known Allergies Allergy Verified 07/25/21 07:10 Family History Sister Colon cancer Diabetes Mother Colon cancer, Onset Age: 65 Father CAD (coronary artery disease) Surgical History (Updated 07/21/21 @ 11:38 by Nadine Hunter) History of arthroscopy of right knee (~1980) History of colonoscopy (~05/24/20) Hx of appendectomy (~2017) Hx of right hemicolectomy Social History (Updated 06/23/20 @ 11:[address] Rosalba Mack MD) Smoking Status: Former smoker Past Medical/Surgical History Planned Operation Planned Operative Procedure/s: CSCOPE S.O.S: No Previous Hospitalizations/Surgeries HX Hospitalizations: No HX of Surgeries: appendectomy 2018 knee scope yrs ago teeth extraction laser kidney stone 05/2020 colonoscopy 05/2020 lt yumiko-colectomy Any Problems With Anesthesia: No You/Your Family Experience Fever (Hyperthermia) With Anes: No Cholinesterase deficiency: No Cardiovascular Hx Chest Pain within Last 2 months: No Hx of Irregular Heartbeat and/or Afib: No Hx Heart Attack: No Hx Congestive Heart Failure: No Hx Rheumatic Fever: No Hx Hypertension: No Hx Internal Defibrillator: No Hx Pacemaker: No Hx Cardiac Catheterization: No Hx Cardiac Surgery/Stents/Etc.: No Hx Stress Test: No Hx Pain in Legs when Walking/Leg Cramps: No Respiratory Chronic Cough: No HX of Shortness of Breath: No Hoarseness: No Hx Chronic Obstructive Pulmonary Disease (COPD): No Hx Asthma: No Hx Emphysema: No Hx Sleep Apnea: No Hx Respiratory Tract Infection/Cold (presently): No Do You Snore Loudly (louder than talking or can be heard): Yes Do You Often Feel Tired/ Fatigued/ Sleepy Dring Daytime?: No Has Anyone Observed You Stop Breathing During Sleep?: No Result (for STOP score): Negative Hx Smoking: Yes (quit 3 yrs ago) Smoking Status: Former smoker Gastrointestinal Hx Gastroesophageal Reflux: No Hx Gastrointestinal Disorders: No (per-cancer polyp->hemicolectomy 2020) Hx Gastrointestinal Bleed: No Hx Ulcer: No Hx Hiatal Hernia: No Difficulty Chewing/Swallowing: No Special diet followed at home: No Hx Unplanned Weight Loss of 20#: No HX Unplanned Weight Gain of 20#: No Neurological Hx Seizures: No HX Syncope/Blackout Spells/Unconsciousness: No Hx Transient Ischemic Attacks (TIA): No Hx Multiple Sclerosis: No Hx Parkinson's Disease: No Hx Head/Neck Injury: No Hx Headaches: Yes (occ) Hx Back Injury/Pain: No Recent Onset of Speech Difficulty: No Restless Legs: No Does patient have nerve stimulator: No Blood Disorder Hx Leukemia: No Bleeding Tendencies: No Hx Deep Vein Thrombosis: No Hx High Cholesterol: No Blood Transmitted Disease: No Hx Hepatitis: No Hx Cirrhosis: No Hx Anemia: No Hx Blood Disorders: No Reproduction : No Genitourinary Hx Renal Disease: No (kidney stone in the past) Hx Dialysis: No Musculoskeletal Hx Arthritis: Yes Hx Rheumatoid Arthritis: No Hx Gout: No Recent Onset of an Orthopedic Problem: No Endocrine Hx Diabetes: No Thyroid Disease: No Hx Steroid Therapy: No Psycho/Social Hx Substance Use: No Hx Alcohol Use: Yes (occassional) Hx Anxiety: Yes (situational) Hx Depression: No Mental Illness: No Hx Dementia: No Miscellaneous Hx Cancer: No Recent Exposure to Contagious Disease: No Hx of C-Diff: No Any Loose Teeth: No (dentures) Allergies No Known Allergies Allergy (Verified 07/25/21 07:10) Maternal: Family History Sister Colon cancer Diabetes Mother Colon cancer, Onset Age: 65 Father CAD (coronary artery disease) No pertinent history Discharge Is Pt Admitted From a Residential, or a Correction: No After D/C, Where Do you Plan to Go: Return Home From the PAT History Number of Risk Factors: 3 Vital Signs Vital Signs Vital Signs: 07/25/21 07:10 Temperature 98.5 F Temperature Source Temporal Pulse Rate 80 Respiratory Rate 16 Respiratory Pattern Normal Blood Pressure 172/99 H Blood Pressure Mean 123 Blood Pressure Source Monitor Blood Pressure Position Semi-Fowlers Blood Pressure Location Right Arm Pulse Ox 98 Oxygen Delivery Method Room Air Weight Weight: 259 lb 7.745 oz Body Mass Index (BMI) 36.1 Physical Exam Const alert, oriented x3 and no apparent distress HEENT normocephalic and head/scalp atraumatic Resp normal respiratory effort Cardio regular rate GI soft to palpation and non-tender; Negative for non-distended Palpation: Negative for guarding Extremity no clubbing, cyanosis or edema Neuro CN's II-XII intact bilaterally Psych mental status grossly normal Assessment & Plan Assessment/Plan (1) High grade dysplasia in colonic adenoma: (2) Tubulovillous adenoma of colon: (3) S/P right hemicolectomy: Procedure Criteria Type of Procedure Procedure Type: Elective Elective Risks - COVID COVID Risk Discussion: The surgeon/proceduralist and patient have discussed in detail the risk of exposure to and/or potential harm posed by the COVID-19 virus with having a surgery/procedure at this time versus the risk of delaying the surgery/procedure. It is not possible to know either the risk of delaying the surgery or procedure or chance of getting an infection with perfect accuracy, but a joint decision was made between the patient and the surgeon/proceduralist to proceed at this time with the scheduled surgery/procedure as indicated on the consent form. Surgery Risks - Colonoscopy Risks Include but are not Limited To: Risks include but are not limited to: Bleeding, perforation requiring further surgery, inability to complete colonoscopy requiring barium enema.
[2021-07-25 07:48] VITALS: BP 137/77; BP 172/99; PULSE 84; RESP 16; TEMP 37.3; O2SAT 96
[2021-07-25 07:53] VITALS: BP 143/77; BP 172/99; PULSE 78; RESP 16; O2SAT 95
--- NOTE | 2021-07-25 07:53 | OP.COLON_ITS ---
Patient Name: Alphonso Yancey Procedure Date: 07/25/2021 6:52 AM Date of : 1955 Age: 66 Procedure: Colonoscopy Indications: Surveillance: History of numerous (> 10) adenomas on last colonoscopy (< 3 yrs), Surveillance: History of piecemeal removal adenoma on last colonoscopy (< 3 yrs), High risk colon cancer surveillance: Personal history of adenoma with high grade dysplasia, High risk colon cancer surveillance: Personal history of adenoma with villous component Providers: Rosalba Mack MD Medicines: Monitored Anesthesia Care Patient Profile: This is a 66 year old male. Last Colonoscopy: 1 year ago. Complications: No immediate complications. Procedure: Pre-Anesthesia Assessment: - Prior to the procedure, a History and Physical was performed, and patient medications and allergies were reviewed. The patient's tolerance of previous anesthesia was also reviewed. The risks and benefits of the procedure and the sedation options and risks were discussed with the patient. All questions were answered, and informed consent was obtained. Prior Anticoagulants: The patient has taken no previous anticoagulant or antiplatelet agents. ASA Grade Assessment: Per anesthesia. After reviewing the risks and benefits, the patient was deemed in satisfactory condition to undergo the procedure. After I obtained informed consent, the scope was passed under direct vision. Throughout the procedure, the patient's blood pressure, pulse, and oxygen saturations were monitored continuously. The Colonoscope was introduced through the anus and advanced to the ileocolonic anastomosis. The colonoscopy was performed without difficulty. The patient tolerated the procedure well. The quality of the bowel preparation was good. Scope In: 7:31:01 AM Scope Withdrawal Time 0 hours 11 minutes 0 seconds Scope Out: 7:45:11 AM Total Procedure Duration Time 0 hours 14 minutes 10 seconds Findings: The perianal and digital rectal examinations were normal. A few small-mouthed diverticula were found in the sigmoid colon. Previous tattoo area at 23 cm- no polyp The exam was otherwise without abnormality. Impression: - Diverticulosis in the sigmoid colon. - The examination was otherwise normal. - No specimens collected. Recommendation: - Discharge patient to home. - Resume previous diet. - Continue present medications. - Repeat colonoscopy in 3 years for screening purposes. Procedure Code(s): --- Professional --- G0105, PT, Colorectal cancer screening; colonoscopy on individual at high risk Diagnosis Code(s): --- Professional --- Z86.010, Personal history of colonic polyps K57.30, Diverticulosis of large intestine without perforation or abscess without bleeding CPT copyright 2017 [employer]. All rights reserved. The codes documented in this report are preliminary and upon professional fee coder review may be revised to meet current compliance requirements. MD Rosalba Williamson MD 07/25/2021 7:53:08 AM This report has been signed electronically. Number of Addenda: 0 Note Initiated On: 07/25/2021 6:52 AM
--- NOTE | 2021-07-25 07:54 | OP.CCLET_ITS ---
07/25/2021 David Wagoner [address] [place] [address] Re : Colonoscopy procedure for Alphonso Yancey Dear Dr. Wagoner This procedure was performed on Sunday, July 25, 2021. My impressions and recommendations are as follows: Impressions : - Diverticulosis in the sigmoid colon. - The examination was otherwise normal. - No specimens collected. Recommendations : - Discharge patient to home. - Resume previous diet. - Continue present medications. - Repeat colonoscopy in 3 years for screening purposes. My findings are described in the full procedure note, which is enclosed. If I can be of further assistance, please feel free to contact me at Doctor phone number(s): , Work: . Sincerely, MD Rosalba Williamson MD 07/25/2021 7:53:08 AM This report has been signed electronically.
[2021-07-25 07:56] VITALS: BP 142/90; BP 172/99; PULSE 79; RESP 16; O2SAT 94
[2021-07-25 08:01] VITALS: BP 163/77; BP 172/99; PULSE 77; RESP 16; TEMP 36.9; O2SAT 95
[2021-07-25 08:16] VITALS: BP 172/99
== END 2021-07-25 08:38 | disposition home or self-care (01) ==
LOC: EN 06:31 → AC 06:34
PROVIDERS: PCP Family Medicine; Referring Provider Family Medicine; Visit Provider Surgery
PROC: 0DJD8ZZ Inspection of Lower Intestinal Tract, Via Natural or Artificial Opening Endoscopic (ICD-10-PCS; CPT 45378; principal; 2021-07-25 07:25)
DX: K57.30 Diverticulosis of large intestine without perforation or abscess without bleeding (principal); Z87.891 Personal history of nicotine dependence; Z80.0 Family history of malignant neoplasm of digestive organs; Z86.010 Personal history of colon polyps
CPT/HCPCS: 45378; J2405

== ENCOUNTER → 2022-10-04 | Outpatient (CLI) | payer MEDICARE, OTHER, BC, SELFPAY ==
[2022-10-04 15:31] LABS: CRP 4.71 mg/L (0.0-3.0)
[2022-10-04 16:17] LABS: Erythrocyte Sedimentation Rate 7 mm/hr (0-20)
== END | disposition home or self-care (01) ==
LOC: BFHLAB 13:05
PROVIDERS: PCP Family Medicine; Referring Provider Family Medicine; Visit Provider Family Medicine
DX: M35.3 Polymyalgia rheumatica (principal)
CPT/HCPCS: 36415; 85652; 86140

== ENCOUNTER 2023-07-04 08:04 | Emergency (ER) | payer MEDICARE, OTHER, BC, SELFPAY ==
[2023-07-04 08:04] VITALS: BP 183/92; PULSE 85; RESP 16; O2SAT 97
[2023-07-04 08:05] VITALS: PULSE 82; RESP 25; TEMP 36.6; O2SAT 96; BMI 37.4
--- NOTE | 2023-07-04 08:11 | EKG12_ITS ---
Test Reason : CP/SOB Blood Pressure : / mmHG Vent. Rate : 081 BPM Atrial Rate : 081 BPM P-R Int : 194 ms QRS Dur : 098 ms QT Int : 376 ms P-R-T Axes : 017 043 029 degrees QTc Int : 436 ms Normal sinus rhythm Normal ECG Confirmed by Denis Parikh ([id number]), editor managing director THOR KOHLI ([id number]) on 07/06/2023 7:21:18 AM Referred By: TL Confirmed By:Denis Parikh
--- NOTE | 2023-07-04 08:25 | EDS_ITS ---
HPI History of Present Illness Chief Complaint: Chest Pain Informant: patient and spouse/S.O. Narrative Narrative: Intermittent left-sided chest pain past 10 days. Started when is going to bed chest tightness shortness of breath. Intermittent pain in his mid back. No pain down the arms. No nausea no diaphoresis. No history of similar. Denies any past medical history. Returned from [place] 2 weeks ago by car states that intermittent leg cramping. No history of PE or DVT. Denies hypertension, diabetes, hyperlipidemia. Remote tobacco use quit 7 years ago. Currently asymptomatic. Last onset of symptoms 6:30 AM after awakening. Denies any history of stress test or cardiac cath. Prior Similar Symptoms: No CVD Risk Factors: Negative for Hypertension, Diabetes or Hypercholesterolemia PE Risk Factors: Positive for Recent Travel/Surgery; Negative for Recent Immobilization or Prior DVT or PE [facility] Medical History Alcohol use Fatty liver Former smoker IBS (irritable bowel syndrome) Multiple polyps of sigmoid colon Multiple thyroid nodules PMR (polymyalgia rheumatica) Renal calculi Wears dentures Wears glasses Home Medications NK 07/21/21 [History Last Taken Unknown] Allergy/AdvReac Type Severity Reaction Status Date / Time No Known Allergies Allergy Verified 07/25/21 07:10 Family History Sister Colon cancer Diabetes Mother Colon cancer, Onset Age: 65 Father CAD (coronary artery disease) Surgical History History of arthroscopy of right knee (~1980) History of colonoscopy (~05/24/20) Hx of appendectomy (~2018) Hx of right hemicolectomy Social History Smoking Status: Former smoker ROS ROS ED Constitutional Constitutional ED: Denies chills, fever(s) or sweats Eyes Eyes: Denies change in vision ENT ENT ED: Denies dysphagia or sore throat Cardiovascular Cardiovascular: Reports chest pain; Denies leg edema, palpitations or racing heartbeat Respiratory/Chest Respiratory/Chest: Denies cough, dyspnea or dyspnea on exertion Gastrointestinal Gastrointestinal: Denies abdominal pain, diarrhea, nausea or vomiting Genitourinary Genitourinary ED: Denies dysuria, hematuria or urinary frequency Musculoskeletal Musculoskeletal: Denies back pain, extremity pain or neck pain Integumentary Denies rash or wounds Neurologic Neurologic: Denies headache(s), paresthesias or weakness EXAM Physical Exam Const Vital Signs: 07/04/23 08:05 07/04/23 08:04 07/04/23 08:08 Temperature 97.9 F Temperature Source Oral Pulse Rate 82 85 Respiratory Rate 25 H 16 Respiratory Effort Normal Non-Labored Blood Pressure 183/92 H Blood Pressure Mean 122 Pulse Ox 96 97 Oxygen Delivery Method Room Air Room Air 07/04/23 08:15 07/04/23 09:04 07/04/23 10:10 Temperature 98.3 F Temperature Source Temporal Pulse Rate 74 80 Respiratory Rate 19 H 16 Respiratory Effort Blood Pressure 157/82 H 148/71 H Blood Pressure Mean 107 96 Pulse Ox 100 94 Oxygen Delivery Method Room Air Room Air Room Air 07/04/23 11:00 Temperature Temperature Source Pulse Rate 77 Respiratory Rate 22 H Respiratory Effort Blood Pressure 151/79 H Blood Pressure Mean 103 Pulse Ox 94 Oxygen Delivery Method Room Air Positive well nourished and well developed General Appearance ED: well developed and NAD HEENT Reports moist mucous membranes normocephalic and atraumatic Eyes PERRL, EOMs intact bilaterally and conjunctivae normal General Eye ED: Yes normal appearance of both eyes Neck no lymphadenopathy and supple General: Negative for tenderness Chest Wall Chest: Negative for tenderness Resp normal respiratory effort and normal air movement Effort and Inspection: symmetric chest movement; Negative for respiratory distress Cardio regular rate, regular rhythm and no murmurs Peripheral Pulses: pulses 2+ throughout GI normal to inspection, nondistended, normoactive bowel sounds and non-tender Palpation: Negative for guarding or rebound tenderness present Back/Spine no CVA tenderness and no thoracic nor lumbar tenderness Extremity normal to inspection General Extremety ED: Negative for edema or tenderness General Extremity: Negative for edema Neuro oriented x3 and no sensory deficits noted Sensorium / Orientation: awake and alert Skin no rashes or lesions noted and no wounds Heart Score History: Slightly/Non-Suspicious ECG: Normal Age: >/= 65 years Risk Factors: 1 or 2 Risk Factors Troponin: </= Normal Limit Score: 3 MDM MDM MDM Narrative Medical decision making narrative: Interventions / MDM: Differential diagnosis: Atypical chest pain Diagnosis considered but do not suspect: Pulmonary embolism, negative D-dimer, pneumothorax however x-ray negative. Aortic dissection, however no sharp tearing pain to the back equal symmetric pulses upper extremities bilaterally. Acute coronary syndrome however EKG with no ischemic changes and cardiac enzymes are negative. My EKG interpretation: Sinus rate of 81, no ST or T wave changes. Imaging independently reviewed and interpreted by myself: 2 view chest x-ray: No acute process. External documents reviewed: N/A Test considered but not ordered:N/A ED course: Patient transient chest pains, EKG ordered normal sinus rhythm no acute findings. Cardiac workup initiated, D-dimer added for low risk Wells criteria for PE with recent travel. 0915: Initial troponin D-dimer negative. Two-view chest x-ray ordered. Results are negative. Remains symptom-free. 1120: Delta troponin negative. Remains symptom-free on reevaluation. Discussed will need close outpatient follow-up for further testing/chest pain symptoms. Strict return precaution discussed with patient and spouse. All questions were answered. Re-evaluation: stable Disposition discussed with patient/family/significant other: Patient significant other Case discussed with consulting clinician: N/A This note was generated with [employer] dictation software. It may contain incorrect words, spelling, and punctuation that were not noted in checking the note before signing. Lab Data Attestation: I reviewed the patient's lab results. Labs: Laboratory Results - last 24 hr 07/04/23 07/04/23 08:19 10:30 WBC 9.1 RBC 5.62 Hgb 17.0 H Hct 50.9 MCV 90.6 MCH 30.2 MCHC 33.4 RDW Std Deviation 42.[address] 12.9 Plt Count 172 MPV 10.7 Immature Gran % (Auto) 0.600 Neut % (Auto) 69.0 Lymph % (Auto) 21.6 Gregory % (Auto) 6.4 Eos % (Auto) 2.0 Baso % (Auto) 0.4 Absolute Neuts (auto) 6.3 Absolute Lymphs (auto) 1.96 Nucleated RBC % 0 D-Dimer Quant (PE/DVT) 0.40 Sodium 140 Potassium 3.9 Chloride 109 H Carbon Dioxide 25.0 Anion Gap 6 BUN 15 Creatinine 0.96 Estim Creat Clear Calc 96.45 Est GFR (MDRD) Af Amer 100 Est GFR (MDRD) Non-Af 83 BUN/Creatinine Ratio 15.7 Glucose 152 H Calcium 9.1 Troponin I High Sens 6 4 Radiography Diagnostic Testing: Clinical Impression(s) from Imaging Studies Chest X-Ray 07/04/23 09:02 IMPRESSION: No acute abnormality is seen. Electronically Signed: Niles Baires MD at 9:47 EDT Reading Location ID and State: [facility] / [place] , Service support , Discharge Plan Triage Chief Complaint: Chest Pain ED Provider: Nathaniel Powell Dx/Rx/DC Orders Clinical Impression: Elevated blood-pressure reading without diagnosis of hypertension, Chest pain Instructions: ED Chest Pain, Uncertain Cause Prescriptions: No Action NK Primary Care Provider: David Wagoner Referrals: David Wagoner DO [Primary Care Provider] - 3-5 Days Activity Restrictions/Additional Instructions: Your cardiac workup negative. D-dimer negative. He had elevated blood pressure on arrival, is trending down. 151/79 on recheck. Monitor symptoms follow-up with her doctor further testing outpatient. If symptoms return or worsens, return to ED for reevaluation. Disposition Disposition: Home, Self Care
[2023-07-04 08:28] LABS: Absolute Lymphocyte Count 1.96 X10^3/uL (0.83-4.51); Absolute Neutrophil Count 6.3 X10^3/uL (2.0-7.7); Basophil# 0.04 X10^3/uL; Basophil% 0.4 % (0-1); Eosinophil# 0.18 X10^3/uL; Hematocrit 50.9 % (40-54); Lymphocyte # 1.96 X10^3/ul (0.83-4.51); Lymphocyte % 21.6 % (19-41); Mean Corp Hgb Conc 33.4 g/dL (32-36); Mean Corpuscular Hgb 30.2 pg (27.0-32.0); Mean Corpuscular Volume 90.6 fL (80-94); Mean Platelet Vol. 10.7 fl (6.2-12.0); Monocyte# 0.58 X10^3/uL; Monocyte% 6.4 % (0-10); NRBC Flagged by Analyzer 0 % (0-5); Neutrophil # 6.28 X10^3/uL (2.7-7.7); Platelet Count 172 K/mm3 (150-450); RBC Distribution Width CV 12.9 % (11.6-14.6); RBC Distribution Width SD 42.5 fl (35.1-43.9); Red Blood Count 5.62 M/mm3 (4.6-6.2); White Blood Count 9.1 K/mm3 (4.4-11.0)
[2023-07-04 08:46] LABS: Anion Gap 6 (5-15); BUN 15 mg/dL (7-18); BUN/Creat Ratio 15.7 RATIO (10-20); Calcium,Total 9.1 mg/dL (8.5-10.1); Chloride 109 mmol/L (98-107); Creatinine, Serum 0.96 mg/dL (0.70-1.30); EST Glomerular Filtration Rate 83 mL/min (>60); Est Glom Filt Rate - Afr Amer 100 mL/min (>60); Estimated Creatinine Clearance 96.45 ml/min; Glucose 152 mg/dL (74-106); Potassium 3.9 mmol/L (3.5-5.1); Sodium Level 140 mmol/L (136-145); Troponin-I HS (w/2H Reflex) 6 pg/mL (3.0-78.0)
--- NOTE | 2023-07-04 09:02 | RAD_ITS ---
STUDY: X-RAY CHEST REASON FOR EXAM: Male, 68 years old. Chest pain TECHNIQUE: PA and lateral views of the chest. COMPARISON: Comparison is made with prior study dated May 25, 2017. FINDINGS: EKG electrodes are seen. Stable mild elevation of the right hemidiaphragm. The lungs are clear. There is no demonstrated pleural abnormality. Normal size heart. Normal mediastinum and laisha. Normal visualized pulmonary arteries. Normal visualized aortic arch and descending thoracic aorta. There are diffuse degenerative changes of the visualized thoracic spine. Normal visualized ribs, clavicles, and shoulders. There is no demonstrated abnormality of the visualized soft tissue structures of the upper abdomen. RAD/Chest PA and Lateral IMPRESSION: No acute abnormality is seen. Electronically Signed: Niles Baires MD at 9:47 EDT ,
[2023-07-04 09:04] VITALS: BP 157/82; PULSE 74; RESP 19; O2SAT 100
[2023-07-04 10:10] VITALS: BP 148/71; PULSE 80; RESP 16; TEMP 36.8; O2SAT 94
[2023-07-04 10:25] LABS: Reflex Troponin-HS? (from REC) Y
[2023-07-04 11:00] VITALS: BP 151/79; PULSE 77; RESP 22; O2SAT 94
[2023-07-04 11:06] LABS: Troponin-I HS 4 pg/mL (3.0-78.0)
[2023-07-04 11:26] VITALS: BP 144/78; PULSE 77; RESP 21; TEMP 36.1; O2SAT 94
== END 2023-07-04 11:34 | disposition home or self-care (01) ==
PROVIDERS: Emergency Provider Emergency Medicine; PCP Family Medicine; Visit Provider Emergency Medicine
DX: R03.0 Elevated blood-pressure reading, without diagnosis of hypertension (principal); R07.9 Chest pain, unspecified; Z87.891 Personal history of nicotine dependence
CPT/HCPCS: 71046; 80048; 84484; 85025; 85379; 93005; 99283; A4216

== ENCOUNTER → 2023-07-27 | Outpatient (CLI) | payer MEDICARE, OTHER, BC, SELFPAY ==
--- NOTE | 2023-07-27 11:49 | US_ITS ---
STUDY: THYROID ULTRASOUND REASON FOR EXAM: Male, 68 years old. NODULES TECHNIQUE: Ultrasound evaluation of the thyroid was performed with real-time and static granda-scale imaging. COMPARISON: Thyroid ultrasound 04/01/2019. FINDINGS: RIGHT LOBE: The right lobe of the thyroid gland measures 4.8 x 1.4 x 2.0 cm. There is a heterogeneous echotexture. Solid hypoechoic nodule in the upper thyroid lobe measuring 0.44 x 0.30 x 0.39 cm. Smaller mixed solid and cystic nodule in the lower thyroid lobe measures 0.97 x 0.86 x 1.01 cm. LEFT LOBE: The left lobe of the thyroid gland measures 4.2 x 1.5 x 1.4 cm. There is a heterogeneous echotexture. Prominent solid hypoechoic nodule in the posterior aspect of the mid thyroid lobe measuring 1.23 x 0.80 x 0.90 cm. Anechoic cyst in the posterior aspect of the lower thyroid lobe measures 0.68 x 0.57 x 0.46 cm. Another anechoic cyst in the posterior aspect of the left thyroid lobe measures 0.67 x 0.53 x 0.53 cm. ISTHMUS: The isthmus measures 0.47 cm. . US/Thyroid IMPRESSION: 1. Solid hypoechoic nodule in the right upper thyroid lobe measures 0.44 x 0.30 x 0.39 cm, previously 0.5 x 0.4 x 0.3 cm. TI-RADS points: 4. TI-RADS category: TR4. This nodule is moderately suspicious but no FNA or follow-up is necessary given the small size of this nodule. 2. Mixed solid and cystic nodule in the right lower thyroid lobe measures 0.97 x 0.86 x 1.01 cm, previously 1.1 x 0.8 x 0.6 cm. TI-RADS points: 3. TI-RADS category: TR3. This nodule is mildly suspicious but no FNA or follow-up is necessary given the small size of this nodule. 3. Prominent solid hypoechoic nodule posterior aspect of the left mid thyroid lobe measures 1.23 x 0.80 x 0.90 cm, previously 1.1 x 1.0 x 0.9 cm. TI-RADS points: 4. TI-RADS category: TR4. This nodule is moderately suspicious. Recommend follow-up thyroid ultrasound in 2 years. 4. Small anechoic cysts in the left lower thyroid lobe. TI-RADS points: 0. TI-RADS category: TR1. This nodule is benign and no FNA or follow-up is necessary. Electronically Signed: Camacho Moctezuma MD at 15:45 EDT ,
--- NOTE | 2023-07-27 16:56 | STRESSREP ---
Stress Test Report Exercise stress test. 68-year-old man with a history of chest pain Stress protocol: Resting EKG demonstrates normal sinus rhythm with a rate of 74 bpm resting blood pressure is 176/90 mmHg. The patient exercised according to the regular Atif protocol for a total duration of 4 minutes attaining a maximum heart rate of 125 bpm which was 82% of maximum predicted heart rate; the maximum workload was 7 metabolic equivalents. At rest there were no ST or T wave changes noted to suggest ischemia and at peak exercise upsloping ST changes only were noted which did not meet the criteria for ischemia. No clinical angina was noted the test was terminated due to the target heart rate being achieved/fatigue. The peak blood pressure was 230/98 mmHg. this was a hypertensive response to exercise. Rate-pressure product was 28,700. Conclusion: Normal exercise stress test with no EKG changes for ischemia at a moderate workload. Resting hypertension. Hypertensive response to exercise.
== END | disposition home or self-care (01) ==
PROVIDERS: PCP Family Medicine; Referring Provider Family Medicine; Visit Provider Family Medicine
DX: R07.9 Chest pain, unspecified (principal); E04.2 Nontoxic multinodular goiter
CPT/HCPCS: 76536; 93017

== ENCOUNTER 2024-09-22 06:39 | Day surgery (SDC) | payer MEDICARE, OTHER, BC, SELFPAY ==
--- NOTE | 2024-09-18 18:17 | PAT.ANE_ITS ---
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 When Was Last Pacemaker Check QUESTION #4 FULL TEXT: You/Your Family Experience fever (hyperthermia) with Anesthesia Last Oral Intake Last Oral intake: Last Oral Intake NPO since Meds taken in AM with sips of water? Meds patient instructed to take am of surgery PONV PONV - network architect manager: PONV - network architect manager Female No 09/18/24 11:23 HX of Motion Sickness No 09/18/24 11:23 HX of N/V After Surgery No 09/18/24 11:23 Non-Smoker Yes 09/18/24 11:23 Duration of Surgery greater No 09/18/24 11:23 than 60 minutes Number of Risk Factors 1 09/18/24 11:23 PONV Score Low Risk 09/18/24 11:23 Height & Weight Height & Weight: Anesthesia: Height & Weight Height 5 ft 11 in 07/04/23 08:05 Respiratory Assessment Respiratory Assessment - network architect manager: Respiratory Tract Infection Hx - network architect manager Hx Respiratory Tract Infection No 09/18/24 11:23 STOP Sleep Apnea STOP Sleep Apnea - network architect manager: STOP Sleep Apnea - network architect manager Hx Hypertension Yes: CONTROLLED WITH MED 09/18/24 11:23 Hx Sleep Apnea No 09/18/24 11:23 CPAP No 07/25/21 07:48 BIPAP Do you snore loudly (louder No 09/18/24 11:23 than talking or can be heard Do you often feel tired/ No 09/18/24 11:23 fatigued/ sleepy during daytime? Has anyone observed you stop No 09/18/24 11:23 breathing during sleep? STOP Results Negative 09/18/24 11:23 QUESTION #5 FULL TEXT : Do you snore loudly (louder than talking or can be heard through closed doors)? 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 Specify any problems Hx of Preganancy in last 3 N/A 09/18/24 11:23 Months Nurse Filling Out Transfusion DSCHRIBER 09/18/24 11:23 & Questions: Date: 09/18/24 09/18/24 11:23 Time: 11:09/18/24 11:23 Patient unable to answer at this time (ie. confused, unrespo /Reproduction History /Reproductive History - network architect manager: /Reproductive Hx- network architect manager Hx Now No 09/18/24 11:23 Gestational Age (in weeks): EDC: Hx Hx Para Hx Section SAB No 09/18/24 11:23 PFSH Medical History (Updated 09/18/24 @ 11:29 by Nadine Hunter) Heartburn History of stress test Wears glasses Wears dentures Alcohol use Fatty liver Former smoker IBS (irritable bowel syndrome) Multiple thyroid nodules PMR (polymyalgia rheumatica) Home Medications ?Medication ?Instructions ?Recorded ?Last Taken ?Type Lactobacillus acidophilus 250 500 mmu cells PO DAILY 0 09/18/24 Unknown History million cell capsule (Probiotic Acidophilus) losartan 100 mg tablet 100 mg PO DAILY 09/18/24 Unk nown History Allergy/AdvReac Type Severity Reaction Status Date / Time No Known Allergies Allergy Verified 09/18/24 11:23 Family History Sister Colon cancer Diabetes Mother Colon cancer, Onset Age: 65 Father CAD (coronary artery disease) Surgical History (Updated 09/18/24 @ 11:29 by Nadine Hunter) Hx of right hemicolectomy History of colonoscopy (~05/24/20) History of arthroscopy of right knee (~1980) Hx of appendectomy (~2017) Social History Smoking Status: Former smoker Audit: Pertinent Findings Pertinent Findings EKG Perinent findings: July 04, 2023. Normal sinus rhythm. Stress test pertinent findings: July 27, 2023. Normal exercise stress test with no EKG changes for ischemia at a moderate workload. Patient achieved 7 METS Recommendation Anesthesia Recommendation Anesthesia recommendation: OPTIMIZED for anesthesia
[2024-09-22] VITALS (8 sets, daily range): BP systolic 104–168; BP diastolic 61–86; PULSE 87–98; RESP 16; TEMP 36.2–36.8; O2SAT 93–97; BMI 37.8
--- OUTSIDE RECORDS SUMMARY | 2024-09-22 06:42 | XMS RPT_ITS | CCD ---
Author Organization [facility] Care Team Providers Care Ambulance Assistant Name Role Phone Dr. David Wagoner Primary Care Provider Dr. David Wagoner Referring Provider [phone] Dr. Rosalba Mack Attending Provider Dr. Rosalba Mack Other Provider Dr. David Wagoner Primary Care Provider Dr. David Wagoner Referring Provider Dr. David Wagoner Other Provider Dr. Levi Chavez Attending Provider [phone] Rosalba Mack Attending Unavailable David Wagoner Referring Unavailable David Wagoner Primary Care Unavailable Medications Current Medications Medication Drug Class(es) Dates Sig (Normalized) Sig (Original) Souris (Nk) (3 sources) Start: 07-21-2021 Souris (Nk) A ctive July 21, 2021 12:00am Completed/Discontinued Medications Medication Drug Class(es) Dates Sig (Normalized) Sig (Original) acetaminophen 325 mg / HYDROcodone bitartrate 5 mg oral tablet (3 sources) Opioid Agonist Start: 05-26-2017 End: 06-08-2017 take 1 tablet by mouth every four hours as needed Hydrocodone-Acetam inophen Discontinued 1 - 2 TABLET PO EVERY 4 HOURS NEEDED 20 May 26, 2017 9:03am June 08, 2017 9:55am metroNIDAZOLE 500 mg oral tablet (3 sources) Nitroimidazole Antimicrobial Start: 05-30-2020 End: 05-31-2020 Metronidazole (Flagyl) 500 mg tablet Discontinued 500 MG PO .COMPLEX 3 May 30, 2020 1:00am May 31, 2020 9:13am 500 mg PO 1 tab PO at 1300, 1400, 2300 day prior to surgery; Problems Problem Classification Problem Date Documented Da te Episodic/Chronic Nonspecific chest pain (2 sources) Chest pain; Translations: [Chest pain, unspecified] 07-04-2023 Episodic Other and unspecified benign neoplasm (8 sources) Adenomatous polyp of colon ; Translations: [Benign neoplasm of colon, unspecified] 06-23-2020 Episodic Other and unspecified benign neoplasm (2 sources) Benign neoplasm of colon, unspecified; Translations: [Benign neoplasm of colon] Episodic Other circulatory disease (2 sources) Elevated blood-pressure reading without diagnosis of hypertension; Translations: [Elevated blood-pressure reading, without diagnosis of hypertension] 07-04-2023 Episodic Residual codes; unclassified (4 sources) Family history of cancer of colon; Translations: [Family history of malignant neoplasm of digestive organs] 05-18-2020 Episodic Residual codes; unclassified (4 sources) History of partial resection of colon; Translations: [Acquired absence of other specified parts of digestive tract] 06-23-2020 Episodic Residual codes; unclassified (1 source) Acquired absence of other specified parts of digestive tract; Translations: [Other postprocedural status] Episodic Results Test Name Value Interpretation Reference Range Facility MR/PATVeronica 09-18-2024 [facility] Department [address] [place] [address] PAT - Anesthesia 09/18/24 1817 MR#: [id number] Acct: [id number] Name: SARAH PALMER Rep #: [id number] : 1955 69 From: Demian Reed MD PCP: Dr. David Wagoner, DO Status:PRE SDC Y Race: C Location: EN Pre-Assessment Diagnosis/Proposed Procedure Planned Operative Procedure(s): CSCOPE OA Anesthesia History Anesthesia History - branch services manager: Anesthesia History - branch services manager Hx Hospitalization No 09/18/24 11:23 Any Problems With Anesthesia No 09/18/24 11:23 Cholinesterase deficiency No 09/18/24 11:23 You/Your Family Experience No 09/18/24 11:23 fever (hyperthermia) with Relationship Recent Exposure to Contagious No 07/25/21 07:20 Disease Does patient have nerve No 09/18/24 11:23 stimulator Patient instructed to have device shut off --Does patient have Pacemaker or ICD? When Was Last Pacemaker Check QUESTION #4 FULL TEXT: You/Your Family Experience fever (hyperthermia) with Anesthesia Last Oral Intake Last Oral intake: Last Oral Intake NPO since Meds taken in AM with sips of water? Meds patient instructed to take am of surgery PONV PONV - branch services manager: PONV - branch services manager Female No 09/18/24 11:23 HX of Motion Sickness No 09/18/24 11:23 HX of N/V After Surgery No 09/18/24 11:23 Non-Smoker Yes 09/18/24 11:23 Duration of Surgery greater No 09/18/24 11:23 than 60 minutes Number of Risk Factors 1 09/18/24 11:23 PONV Score Low Risk 09/18/24 11:23 Height Weight Height Weight: Anesthesia: Height Weight Height 5 ft 11 in 07/04/23 08:05 Respiratory Assessment Respiratory Assessment - branch services manager: Respiratory Tract Infection Hx - branch services manager Hx Respiratory Tract Infection No 09/18/24 11:23 STOP Sleep Apnea STOP Sleep Apnea - branch services manager: STOP Sleep Apnea - branch services manager Hx Hypertension Yes: CONTROLLED WITH MED 09/18/24 11:23 Hx Sleep Apnea No 09/18/24 11:23 CPAP No 07/25/21 07:48 BIPAP Do you snore loudly (louder No 09/18/24 11:23 than talking or can be heard Do you often feel tired/ No 09/18/24 11:23 fatigued/ sleepy during daytime? Has anyone observed you stop No 09/18/24 11:23 breathing during sleep? STOP Results Negative 09/18/24 11:23 QUESTION #5 FULL TEXT : Do you snore loudly (louder than talking or can be heard through closed doors)? Tobacco Use History Tobacco Use History - branch services manager: Tobacco Use History - branch services manager Tobacco Use Smoking Status Former smoker 09/18/24 11:23 Hx Tobacco Use No 09/18/24 11:23 Years Smoking Packs Smoked per Day Smoking Cessation Date was Yes - quit smoking within 15 09/18/24 11:23 within the last 15 years years Hx Smoking Cessation Date 03/26/16 09/18/24 11:23 Hx Smoking Cessation Counseling Hematologic Medial History Hematologic Hx - branch services manager: Hematologic Medical Hx - senior functional analyst Hx of Blood Transfusion No 09/18/24 11:23 Hx of Transfusion in last 3 No 09/18/24 11:23 Months Date of Last Transfusion (if within last 3 months) Ever experience any problems No 09/18/24 11:23 with transfusion(s)? Specify any problems Hx of Preganancy in last 3 N/A 09/18/24 11:23 Months Nurse Filling Out Transfusion DSCHRIBER 09/18/24 11:23 Questions: Date: 09/18/24 09/18/24 11:23 Time: 1109/18/24 11:23 Patient unable to answer at this time (ie. confused, unrespo /Reproducti on History /Reproducti ve History - branch services manager: /Reproducti ve Hx- branch services manager Hx Now No 09/18/24 11:23 Gestational Age (in weeks): EDC: Hx Hx Para Hx Section SAB No 09/18/24 11:23 [facility] Medical History (Updated 09/18/24 @ 11:29 by Nadine Hunter) Heartburn History of stress test Wears glasses Wears dentures Alcohol use Fatty liver Former smoker IBS (irritable bowel syndrome) Multiple thyroid nodules PMR (polymyalgia rheumatica) Home Medications ???Medication ???Instructions ???Recorded ???Last Taken ???Type Lactobacillus acidophilus 250 500 mmu cells PO DAILY 09/18/24 Un known History million cell capsule (Probiotic Acidophilus) losartan 100 mg tablet 100 mg PO DAILY 09/18/24 Unknown H istory Allergy/AdvReac Type Severity Reaction Status Date / Time No Known Allergies Allergy Verified 09/18/24 11:23 Family History Sister Colon cancer Diabetes Mother Colon cancer, Onset Age: 65 Father CAD (coronary artery disease) Surgical History (Updated (more content not included)... Normal [facility] Absolute lymphocyte countOrd ered By: Nathaniel Powell on 07-04-2023 Lymphocytes Auto (Unsp spec) [#/Vol] 1.96 10*3/uL 0.83-4.[address] [facility] Automated lymphocyte count a s percentage of total leukocytesOrdered By: Nathaniel Powell on 07-04-2023 Lymphocytes/100 WBC Auto (Unsp spec) 21.6 % 19-[address] [facility] Basophil percentageOrdered B y: Nathaniel Powell on 07-04-2023 Basophils/100 WBC (Bld) 0.4 % 0-1 [facility] Chloride [Moles/Vol] 109 mmol/L 98-107 [facility] Eosinophils/100 WBC (Bld) 2.0 % 0-[address] [facility] Glucose [Mass/Vol] 152 mg/dL 74-106 [facility] Comment on above: Fasting Glucose resu lt greater than or equal to 126 mg/dL suggests DIABETES MELLITUS per A.D.A. criteria. Hemoglobin (Bld) [Mass/Vol] 17.0 g/dL 13.0-16.[address] [facility] Monocytes/100 WBC (Bld) 6.4 % 0-10 [facility] Neutrophils (Bld) [#/Vol] 6.3 10*3/uL 2.0-7.[address] [facility] Neutrophils/100 WBC (Bld) 69.0 % 47-[address] [facility] Potassium [Moles/Vol] 3.9 mmol/L 3.5-5.1 [facility] Comment on above: Slight Hemolysis, Re sult may be falsely increased. Sodium [Moles/Vol] 140 mmol/L 136-145 [facility] WBC (Bld) [#/Vol] 9.1 10*3/uL 4.4-11.0 [facility] Determination of erythrocyte mean corpuscular volume (MCV)Ordered By: Nathaniel Powell on 07-04-2023 MCV (RBC) [Entitic vol] 90.6 fL 80-94 [facility] Erythrocyte distribution wid th ratioOrdered By: Nathaniel Powell on 07-04-2023 Erythrocyte distribution width (RBC) [Ratio] 12.9 % 11.6-14.[address] [facility] Erythrocyte distribution wid th standard deviationOrdered By: Nathaniel Powell on 07-04-2023 Erythrocyte distribution width (RBC) [Entitic vol] 42.5 fL 35.1-43.[address] [facility] Hematocrit Auto (Bld) [Volum e fraction]Ordered By: Nathaniel Powell on 07-04-2023 Hematocrit (Bld) [Volume fraction] 50.9 % 40-[address] [facility] Immature granulocytes/100 WB C Auto (Bld)Ordered By: Nathaniel Powell on 07-04-2023 Immature granulocytes/100 WBC (Bld) 0.600 % 0.0-0.[address] [facility] Comment on above: IG% - Immature Granu locytes (promyelocytes, myelocytes and metamyelocytes) > 1% indicates that a LEFT SHIFT is Present. Laboratory - Chemistry and C hemistry - challengeOrdered By: Nathaniel Powell on 07-04-2023 CO2 [Moles/Vol] 25.0 mmol/L 21.0-32.[address] [facility] Urea nitrogen/Creatinine [Mass ratio] 15.7 mg/mg 10-[address] [facility] Laboratory - Hematology and Cell countsOrdered By: Nathaniel Powell on 07-04-2023 MCH (RBC) [Entitic mass] 30.2 pg 27.0-32.[address] [facility] MCHC (RBC) [Mass/Vol] 33.4 g/dL 32-36 [facility] Nucleated RBC/100 WBC (Bld) [Ratio] 0 % 0-[address] [facility] Platelet mean volume (Bld) [Entitic vol] 10.7 fL 6.2-12.[address] [facility] Platelets (Bld) [#/Vol] 172 10*3/uL 150-[address] [facility] No Panel InformationOrdered By: Nathaniel Powell on 07-04-2023 Troponin I High Sensitivity 4 pg/mL 3.0-78.[address] [facility] Comment on above: Please Note: [place] t Units and Gender Specific Reference Ranges. For more information see Policy Stat Procedure [place] High Sensitivity Troponin (TNIH) and attachments. D-Dimer Quantitative (PE/DVT) 0.40 FEU/ug/m 0.27-0.[address] [facility] Comment on above: NORMAL D-Dimer level (<0.50) indicates no DVT or PE. Estimated Creatinine Clearance Calc 96.45 ml/min [facility] Estimated GFR (MDRD) Amer 100 mL/min >[address] [facility] Comment on above: GFR Calc Estimated GFR (MDRD) Non-Af Amer 83 mL/min >[address] [facility] Comment on above: Non- GFR Calc RBC Auto (Bld) [#/Vol]Ordere d By: Nathaniel Powell on 07-04-2023 RBC (Bld) [#/Vol] 5.62 10*6/uL 4.6-6.2 [facility] Serum or plasma calcium mone urement (mass/volume)Ordered By: Nathaniel Powell on 07-04-2023 Calcium [Mass/Vol] 9.1 mg/dL 8.5-10.1 [facility] Serum or plasma creatinine m easurement (mass/volume)Ordered By: Nathaniel Powell on 07-04-2023 Creatinine [Mass/Vol] 0.96 mg/dL 0.70-1.30 [facility] Comment on above: The validity of the calculated GFR & GFRAA in patients over 70 years has not been determined. Clinical correlation is essential. Serum or plasma urea nitroge n measurement (mass/volume)Ordered By: Nathaniel Powell on 07-04-2023 Urea nitrogen [Mass/Vol] 15 mg/dL 7-[address] [facility] Thin prep Papanicolaou smear with manual screeningOrdered By: Nathaniel Powell on 07-04-2023 Thin prep Papanicolaou smear with manual screening 6 5-[address] [facility] Erythrocyte sedimentation ra teOrdered By: David Wagoner on 10-04-2022 ESR (Bld) [Velocity] 7 mm/h 0-20 [facility] Serum or plasma C reactive p rotein measurement (mass/volume)Ordered By: David Wagoner on 10-04-2022 CRP [Mass/Vol] 4.71 mg/L 0.0-3.[address] [facility] Comment on above: C-Reactive Protein ( CRP) provides useful information for thediagnosis, therapy and monitoring of inflammatory processesand associated diseases. For the evaluation of Relative Riskfor Cardiovascular Disease, a High Sensitivity CRP (HSCRP)should be ordered. Vital Signs Date Time Vital Sign Value Performing Clinician Serafin metz 07-04-2023 11:26-0400 Body temperature 97 [degF] [facility] 07-04-2023 11:26-0400 Diastolic blood pressure 78 mm[Hg] [facility] 07-04-2023 11:26-0400 Heart rate 77 /min [facility] 07-04-2023 11:26-0400 Respiratory rate 21 /min [facility] 07-04-2023 11:26-0400 SaO2% (BldA) [Mass fraction] 94 % [facility] 07-04-2023 11:26-0400 Systolic blood pressure 144 mm[Hg] [facility] 07-04-2023 08:05-0400 Body height 180.34 cm [facility] 07-04-2023 08:05-0400 Body mass index (BMI) [Ratio] 37.4 kg/m2 [facility] 07-04-2023 08:05-0400 Body weight 121.78 kg [facility] 07-25-2021 08:01-0400 Body temperature 98.5 [degF] Dr. David Wagoner Work Phone: [facility] Work Phone: 07-25-2021 08:01-0400 Diastolic blood pressure 77 mm[Hg] Dr. David Wagoner Work Phone: [facility] Work Phone: 07-25-2021 08:01-0400 Heart rate 77 /min Dr. David Wagoner Work Phone: [facility] Work Phone: 07-25-2021 08:01-0400 Respiratory rate 16 /min Dr. David Waogner Work Phone: [facility] Work Phone: 07-25-2021 08:01-0400 SaO2% (BldA) [Mass fraction] 95 % Dr. David Wagoner Work Phone: [facility] Work Phone: 07-25-2021 08:01-0400 Systolic blood pressure 163 mm[Hg] Dr. David Wagoner Work Phone: [facility] Work Phone: 07-25-2021 07:10-0400 Body height 180.[address] David Wagoner Work Phone: [facility] Work Phone: 07-25-2021 07:10-0400 Body mass index (BMI) [Ratio] 36.1 kg/m2 Dr. David Wagoner Work Phone: [facility] Work Phone: 07-25-2021 07:10-0400 Body weight 117.[address] David Wagoner Work Phone: [facility] Work Phone: Encounters Encounter Date Encounter Type Care Provider Facility Start: 09-22-2024 ambulatory [facility] Facilit y:[facility] Start: 07-27-2023 Non-patient / Non-visit Dr. Swetha Wagoner Work Phone: [facility] Start: 07-27-2023 End: 07-27-[address] David Wagoner Work Phone: [facility] Work Phone: Start: 07-27-2023 End: 07-27-[address] David Wagoner Work Phone: [facility] Work Phone: Start: 07-04-2023 End: 07-04-2023 Emergency department patient visit [facility] Work Phone: Start: 10-04-2022 End: 10-04-[address] [facility] Work Phone: Start: 10-04-2022 End: 10-04-2022 Patient encounter procedure [facility] Leon[facility] Start: 07-25-2021 Non-patient / Non-visit Dr. Swetha Wagoner Work Phone: [facility] Start: 07-25-2021 End: 07-25-2021 Admission to same day surgery center Dr. David Wagoner Work Phone: [facility]Endoscopy Procedures Date Procedure Procedure Detail Performing Clinician Start: 07-27-2023 US scan of thyroid Dr. David Wagoner Work Phone: Start: 07-04-2023 Plain chest X-ray Start: 07-25-[address] David small Work Phone: Plan of Treatment Date Care Activity Detail Author Start: 07-04-2023 [facility] Start: 07-04-2023 [facility] Patient Education ED Chest Pain, Uncertain Cause [facility] Work Phone: Patient referral [facility] Work Phone: Immunizations Immunization Date Immunization Notes Care Provider Fa [facility] 06-17-2020 Covid (Pfizer) Dr. David luther Work Phone: [facility] 05-27-2020 Covid (Pfizer) Dr. David luther Work Phone: [facility] Payers Date Payer Category Payer Self-pay [id number] 2024 Unknown [id number] 2024 Medicare [id number] 2011 Private Health Insurance [id number] 2011 Unknown [id number] Unknown [id number] Unknown [id number] Unknown [id number] Social History Date Type Detail Facility Start: 07-25-2021 End: 07-04-2023 Tobacco smoking status NHIS Unknown if ever smoked [facility] Start: 05-28-2017 Spouse/ Signif icant Other [facility] Start: 05-19-2020 Non-smoker [facility] Start: 1955 Sex Assigned At Male [facility] Medical Equipment Procedure Code Equipment Code Equipment Origin al Text Equipment Identifier Dates MARY JANE RAYGOZA Oliverio KEYS FDA Start: 05-25-2017 RELOAD,STANDARD 45 [id number] FDA Start: 05-25-2017 MARY JANE RAYGOZA Oliverio KEYS FDA Start: 06-01-2020 MARY JANE RAYGOZA Oliverio KEYS FDA Start: 06-01-2020 RELOAD, SR75 SELECTABLE FDA Start: 06-01-2020 RELOAD, SR75 SELECTABLE FDA Start: 06-01-2020 RELOAD, SR75 SELECTABLE FDA Start: 06-01-2020 RELOAD, SR75 SELECTABLE FDA Start: 06-01-2020 USHA LOW FDA Start: 06-01-2020 MARY JANE RAYGOZA Oliverio KEYS FDA Start: 05-25-2017 RELOAD,STANDARD 45 [id number] FDA Start: 05-25-2017 MARY JANE RAYGOZA Oliverio KEYS FDA Start: 06-01-2020 MARY JANE RAYGOZA MASSIMO FDA Start: 06-01-2020 RELOAD, SR75 SELECTABLE FDA Start: 06-01-2020 RELOAD, SR75 SELECTABLE FDA Start: 06-01-2020 RELOAD, SR75 SELECTABLE FDA Start: 06-01-2020 RELOAD, SR75 SELECTABLE FDA Start: 06-01-2020 HILTON [id number] FDA Start: 06-01-2020 MARY JANE RAYGOZA Oliverio KEYS FDA Start: 05-25-2017 RELOAD,STANDARD 45 [id number] ETH FDA Start: 05-25-2017 MARY JANE RAYGOZA Oliverio KEYS FDA Start: 06-01-2020 MARY JANE RAYGOZA MASSIMO FDA Start: 06-01-2020 RELOAD, SR75 SELECTABLE FDA Start: 06-01-2020 RELOAD, SR75 SELECTABLE FDA Start: 06-01-2020 RELOAD, SR75 SELECTABLE FDA Start: 06-01-2020 RELOAD, SR75 SELECTABLE FDA Start: 06-01-2020 [id number] FDA Start: 06-01-2020 MARY JANE RAYGOZA FDA Start: 05-25-2017 RELOAD,STANDARD 45 [id number] ETH FDA Start: 05-25-2017 MARY JANE RAYGOZA FDA Start: 06-01-2020 MARY JANE RAYGOZA FDA Start: 06-01-2020 RELOAD, SR75 SELECTABLE FDA Start: 06-01-2020 RELOAD, SR75 SELECTABLE FDA Start: 06-01-2020 RELOAD, SR75 SELECTABLE FDA Start: 06-01-2020 RELOAD, SR75 SELECTABLE FDA Start: 06-01-2020 HILTON [id number] FDA Start: 06-01-2020 Mental Status Date Assessment Result Facility 07-04-2023 Cognitive function Level Of Cons ciousness Awake;Alert;Appropriate;Follow s Commands [facility] Work Phone: 07-25-2021 Cognitive function Awake;Alert;Appropriat e [facility] Work Phone: Discharge summary 07-04-2023 Note Date & Type Note Facility 07-04-2023 Discharge summary Note Date/Time July 04, 2023 8:27am [facility] Medical Records Department [address] [place] [address] Emergency Department Summary 07/04/23 MR#: [id number] Acct: [id number] Name: SARAH PALMER Rep #:[id number] : 1955 68 From: Nathaniel Harrington PCP: Dr. David Wagoner, DO Status:REG ER Location: ED HPI History of Present Illness Chief Complaint: Chest Pain Informant: patient and spouse/S.O. Narrative Narrative: Intermittent left-sided chest pain past 10 days. Started when is going to bed chest tightness shortness of breath. Intermittent pain in his mid back. No pain down the arms. No nausea no diaphoresis. No history of similar. Denies any past medical history. Returned from [place] 2 weeks ago by car states that intermittent leg cramping. No history of PE or DVT. Denies hypertension, diabetes, hyperlipidemia. Remote tobacco use quit 7 years ago. Currently asymptomatic. Last onset of symptoms 6:30 AM after awakening. Denies any history of stress test or cardiac cath. Prior Similar Symptoms: No CVD Risk Factors: Negative for Hypertension, Diabetes or Hypercholesterolemia PE Risk Factors: Positive for Recent Travel/Surgery; Negative for Recent Immobilization or Prior DVT or PE PFSH PFS Medical History Alcohol use Fatty liver Former smoker IBS (irritable bowel syndrome) Multiple polyps of sigmoid colon Multiple thyroid nodules PMR (polymyalgia rheumatica) Renal calculi Wears dentures Wears glasses Home Medications NK 07/21/21 [History Last Taken Unknown] Allergy/AdvReac Type Severity Reaction Status Date / Time No Known Allergies Allergy Verified 07/25/21 07:10 Family History Sister Colon cancer Diabetes Mother Colon cancer, Onset Age: 65 Father CAD (coronary artery disease) Surgical History History of arthroscopy of right knee (~1980) History of colonoscopy (~05/24/20) Hx of appendectomy (~2017) Hx of right hemicolectomy Social History Smoking Status: Former smoker ROS ROS ED Constitutional Constitutional ED: Denies chills, fever(s) or sweats Eyes Eyes: Denies change in vision ENT ENT ED: Denies dysphagia or sore throat Cardiovascular Cardiovascular: Reports chest pain; Denies leg edema, palpitations or racing heartbeat Respiratory/Chest Respiratory/Chest: Denies cough, dyspnea or dyspnea on exertion Gastrointestinal Gastrointestinal: Denies abdominal pain, diarrhea, nausea or vomiting Genitourinary Genitourinary ED: Denies dysuria, hematuria or urinary frequency Musculoskeletal Musculoskeletal: Denies back pain, extremity pain or neck pain Integumentary Denies rash or wounds Neurologic Neurologic: Denies headache(s), paresthesias or weakness EXAM Physical Exam Const Vital Signs: 07/04/23 08:05 07/04/23 08:04 07/04/23 08:08 Temperature 97.9 F Temperature Source Oral Pulse Rate 82 85 Respiratory Rate 25 H 16 Respiratory Effort Normal Non-Labored Blood Pressure 183/92 H Blood Pressure Mean 122 Pulse Ox 96 97 Oxygen Delivery Method Room Air Room Air 07/04/23 08:15 07/04/23 09:04 07/04/23 10:10 Temperature 98.3 F Temperature Source Temporal Pulse Rate 74 80 Respiratory Rate 19 H 16 Respiratory Effort Blood Pressure 157/82 H 148/71 H Blood Pressure Mean 107 96 Pulse Ox 100 94 Oxygen Delivery Method Room Air Room Air Room Air 07/04/23 11:00 Temperature Temperature Source Pulse Rate 77 Respiratory Rate 22 H Respiratory Effort Blood Pressure 151/79 H Blood Pressure Mean 103 Pulse Ox 94 Oxygen Delivery Method Room Air Positive well nourished and well developed General Appearance ED: well developed and NAD HEENT Reports moist mucous membranes normocephalic and atraumatic Eyes PERRL, EOMs intact bilaterally and conjunctivae normal General Eye ED: Yes normal appearance of both eyes Neck no lymphadenopathy and supple General: Negative for tenderness Chest Wall Chest: Negative for tenderness Resp normal respiratory effort and normal air movement Effort and Inspection: symmetric chest movement; Negative for respiratory distress Cardio regular rate, regular rhythm and no murmurs Peripheral Pulses: pulses 2+ throughout GI normal to inspection, nondistended, normoactive bowel sounds and non-tender Palpation: Negative for guarding or rebound tenderness present Back/Spine no CVA tenderness and no thoracic nor lumbar tenderness Extremity normal to inspection General Extremety ED: Negative for edema or tenderness General Extremity: Negative for edema Neuro oriented x3 and no sensory deficits noted Sensorium / Orientation: awake and alert Skin no rashes or lesions noted and no wounds Heart Score History: Slightly/Non-Suspicious ECG: Normal Age: >/= 65 years Risk Factors: 1 or 2 Risk Factors Troponin: </= Normal Limit Score: 3 MDM MDM MDM Narrative Medical decision making narrative: Interventions / MDM: Differential diagnosis: Atypical chest pain Diagnosis considered but do not suspect: Pulmonary embolism, negative D-dimer, pneumothorax however x-ray negative. Aortic dissection, however no sharp tearing pain to the back equal symmetric pulses upper extremities bilaterally. Acute coronary syndrome however EKG with no ischemic changes and cardiac enzymesare negative. My EKG interpretation: Sinus rate of 81, no ST or T wave changes. Imaging independently reviewed and interpreted by myself: 2 view chest x-ray: Noacute process. External documents reviewed: N/A Test considered but not ordered:N/A ED course: Patient transient chest pains, EKG ordered normal sinus rhythm no acute findings. Cardiac workup initiated, D-dimer added for low risk Wells criteria for PE with recent travel. 0915: Initial troponin D-dimer negative. Two-view chest x-ray ordered. Resultsare negative. Remains symptom-free. 1120: Delta troponin negative. Remains symptom-free on reevaluation. Discussedwill need close outpatient follow-up for further testing/chest pain symptoms. Strict return precaution discussed with patient and spouse. All questions were answered. Re-evaluation: stable Disposition discussed with patient/family/significant other: Patient significantother Case discussed with consulting clinician: N/A This note was generated with [employer] dictation software. It may contain incorrectwords, spelling, and punctuation that were not noted in checking the note beforesigning. Lab Data Attestation: I reviewed the patient's lab results. Labs: Laboratory Results - last 24 hr 07/04/23 07/04/23 08:19 10:30 WBC 9.1 RBC 5.62 Hgb 17.0 H Hct 50.9 MCV 90.6 MCH 30.2 MCHC 33.4 RDW Std Deviation 42.[address] 12.9 Plt Count 172 MPV 10.7 Immature Gran % (Auto) 0.600 Neut % (Auto) 69.0 Lymph % (Auto) 21.6 [place] % (Auto) 6.4 Eos % (Auto) 2.0 Baso % (Auto) 0.4 Absolute Neuts (auto) 6.3 Absolute Lymphs (auto) 1.96 Nucleated RBC % 0 D-Dimer Quant (PE/DVT) 0.40 Sodium 140 Potassium 3.9 Chloride 109 H Carbon Dioxide 25.0 Anion Gap 6 BUN 15 Creatinine 0.96 Estim Creat Clear Calc 96.45 Est GFR (MDRD) Af Amer 100 Est GFR (MDRD) Non-Af 83 BUN/Creatinine Ratio 15.7 Glucose 152 H Calcium 9.1 Troponin I High Sens 6 4 Radiography Diagnostic Testing: Clinical Impression(s) from Imaging Studies Chest X-Ray 07/04/23 09:02 IMPRESSION: No acute abnormality is seen. Electronically Signed: Niles Baires MD at 9:47 EDT , Discharge Plan Triage Chief Complaint: Chest Pain ED Provider: Nathaniel Powell Dx/Rx/DC Orders Clinical Impression: Elevated blood-pressure reading without diagnosis of hypertension, Chest pain Instructions: ED Chest Pain, Uncertain Cause Prescriptions: No Action NK Primary Care Provider: David Wagoner Referrals: David Wagoner DO [Primary Care Provider] - 3-5 Days Activity Restrictions/Additional Instructions: Your cardiac workup negative. D-dimer negative. He had elevated blood pressureon arrival, is trending down. 151/79 on recheck. Monitor symptoms follow-up with her doctor further testing outpatient. If symptoms return or worsens, return to ED for reevaluation. Disposition Disposition: Home, Self Care What to do if you have Problems For any increased pain, shortness of breath, bleeding, nausea or vomiting, chestpain, or any unexpected problems, contact your Primary Care Provider. Call [facility] ([phone]) or report to the closest Emergency Room. Call 911 if necessary. 07/04/23 1122 <Electronically signed by Nathaniel Harrington> Cosigner Signature (if applicable): CC: Dr. David Wagoner DO ~ Signed [facility] Work Phone: Evaluation note Note Date & Type Note Facility Evaluation note Diagnosis Onset Date S/P right hemicolectomy acut e High grade dysplasia in colonic adenoma resolved Tubulovillous adenoma of colon resolved [facility] Work Phone: Evaluation note Note Date & Type Note Facility Evaluation note No assessment information availa ble [facility] Work Phone: Hospital Discharge instructions Note Date & Type Note Facility Hospital Discharge instructions Additional Instructions Your cardiac workup negative. D-dimer negative. He had elevated blood pressure on arrival, is trending down. 151/79 on recheck. Monitor symptoms follow-up with her doctor further testing outpatient. If symptoms return or worsens, return to ED for reevaluation. [facility] Work Phone: Family History No Family History Records Found Relationship Condition Age at Onset Recorded Date/T perry sister Malignant neoplasm of colon Unknown Diabetes mellitus Unknown mother Malignant neoplasm of colon 65 father Coronary artery disease Unknown Advance Directives No Advanced Directives Records Found Advance Directive Response Recorded Date/ Time Living Will No July 21, 2021 11:30am Power of Director Channel No July 21 11:30am Advance Directive Response Recorded Date/ Time Living Will No July 04, 2023 8:08am Power of Director Channel No July 03 8:08am Chief Complaint and Reason for Visit Chief Complaint chest pain Chief Complaint chest pain CHEST PAIN CHEST PAIN Summary Purpose Additional Source Comments Goals (unrecognized section and content) Goals may be documented in a n alternate sectionGoals may be documented in an alternate sectionGoals may be documented in an alternate sectionGoals may be documented in an alternate section Care Teams (unrecognized sec tion and content) Team Status: Active Member Role Status Dates Dr. David Wagoner , Family Provider Active Dr. David Wagoner , DO Primary Care Provider Active Team Status: Inactive Member Role Status Dates Dr. David Wagoner , Primary Care Prov ider, Attending Provider, Referring Provider Active Team Status: Inactive Member Role Status Dates Dr. David Wagoner DO Primary Care Provider Active Dr. Nathaniel Powell , DO Emergency Provider Active Team Status: Active Member Role Status Dates Dr. David Wagoner , DO Primary Care Prov ider, Referring Provider, Other Provider Active Dr. Levi Chavez MD Attending Provider Active Team Status: Inactive Member Role Status Dates Dr. David Wagoner , DO Primary Care Provider Active Dr. Nathaniel Powell , DO Attending Provider, Emergency Provide r Active (unrecognized sect ion and content) No Status Records Found INFORMATION SOURCE (unrecogn ized section and content) DATE CREATED AUTHOR 09/20/2024 [facility] FOR RECORDS PERTAINING TO PATIENTS WHO ARE OR HAVE BEEN ENROLLED IN A CHEMICAL DEPENDENCY/SUBSTANCEABUSE PROGRAM, SOME INFORMATION MAY BE OMITTED. This clinical summary was aggregated from multiple sources. Caution should be exercised in using it in the provision of clinical care. This summary normalizes information from multiple sources, and as a consequence, information in this document may materially change the coding, format and clinical context of patient data. In addition, data may be omitted in some cases. CLINICAL DECISIONS SHOULD BE BASED ON THE PRIMARY CLINICAL RECORDS. [facility] [facility]. provides no warranty or guarantee of the accuracy or completeness of information in this document.
--- NOTE | 2024-09-22 07:13 | H&P.OPEN ---
[facility] - General General Date of Service: 09/22/24 HPI Narrative SARAH PALMER, is a 69 M who presents for screening colonoscopy. Patient last colonoscopy was 07/25/2021 no polyps were found at that time recommended repeat in 3 years due to patient's history tubovillous adenoma with high-grade dysplasia at the cecum as well as additional tubovillous adenoma in the ascending colon. 07/25/21 endoscopy H&P HPI Tonya PALMER, is a 66 M who presents for colonoscopy due to piecemeal removal of 10 to 16 mm tubulovillous adenoma in sigmoid colon at 23 cm. Patient also underwent a right hemicolectomy on 06/01/2020 due to tubulovillous adenoma with high-grade dysplasia. Patient was last colonoscopy was 05/24/2020 where he had 12 polyps along with the 2 larger ones and they ascending and ileocecal valve area and then the piecemeal removal 1 in the sigmoid. Patient denies any blood in stool has bowel movements daily. Patient does have family history of colon cancer as well. [facility] Medical History Heartburn History of stress test Wears glasses Wears dentures Alcohol use Fatty liver Former smoker IBS (irritable bowel syndrome) Multiple thyroid nodules PMR (polymyalgia rheumatica) Home Medications ?Medication ?Instructions ?Recorded ?Last Taken ?Type Lactobacillus acidophilus 250 500 mmu cells PO DAILY 09/18/24 Unknown History million cell capsule (Probiotic Acidophilus) losartan 100 mg tablet 100 mg PO DAILY 09/18/24 09/22/24 05:30 History Allergy/AdvReac Type Severity Reaction Status Date / Time No Known Allergies Allergy Verified 09/22/24 07:06 Family History Sister Colon cancer Diabetes Mother Colon cancer, Onset Age: 65 Father CAD (coronary artery disease) Surgical History Hx of right hemicolectomy History of colonoscopy (~05/24/20) History of arthroscopy of right knee (~1980) Hx of appendectomy (~2017) Social History Smoking Status: Former smoker Past Medical/Surgical History Planned Operation Planned Operative Procedure(s): CSCOPE OA S.O.S: No Previous Hospitalizations/Surgeries HX Hospitalizations: No HX of Surgeries: appendectomy 2018 knee scope yrs ago teeth extraction laser kidney stone 05/2020 colonoscopy 05/2020 lt yumiko-colectomy Any Problems With Anesthesia: No You/Your Family Experience Fever (Hyperthermia) With Anes: No Cholinesterase deficiency: No Cardiovascular Hx Chest Pain within Last 2 months: No Hx of Irregular Heartbeat and/or Afib: No Hx Heart Attack: No Hx Congestive Heart Failure: No Hx Rheumatic Fever: No Hx Hypertension: Yes (CONTROLLED WITH MED) Hx Internal Defibrillator: No Hx Pacemaker: No Hx Cardiac Catheterization: No Hx Cardiac Surgery/Stents/Etc.: No Hx Stress Test: No Hx Pain in Legs when Walking/Leg Cramps: No Respiratory Chronic Cough: No HX of Shortness of Breath: No Hoarseness: No Hx Chronic Obstructive Pulmonary Disease (COPD): No Hx Asthma: No Hx Emphysema: No Hx Sleep Apnea: No CPAP: No Hx Respiratory Tract Infection/Cold (presently): No Do You Snore Loudly (louder than talking or can be heard): No Do You Often Feel Tired/ Fatigued/ Sleepy Dring Daytime?: No Has Anyone Observed You Stop Breathing During Sleep?: No Result (for STOP score): Negative Hx Smoking: Yes (quit 3 yrs ago) Smoking Status: Former smoker Gastrointestinal Hx Gastrointestinal Disorders: No (per-cancer polyp->hemicolectomy 2020) Hx Gastrointestinal Bleed: No Hx Ulcer: No Hx Hiatal Hernia: No Difficulty Chewing/Swallowing: No Special diet followed at home: No Hx Unplanned Weight Loss of 20#: No HX Unplanned Weight Gain of 20#: No Neurological Hx Seizures: No HX Syncope/Blackout Spells/Unconsciousness: No Hx Transient Ischemic Attacks (TIA): No Hx Multiple Sclerosis: No Hx Parkinson's Disease: No Hx Head/Neck Injury: No Hx Headaches: Yes (occ) Hx Back Injury/Pain: No Recent Onset of Speech Difficulty: No Restless Legs: No Does patient have nerve stimulator: No Blood Disorder Hx Leukemia: No Bleeding Tendencies: No Hx Deep Vein Thrombosis: No Hx High Cholesterol: No Blood Transmitted Disease: No Hx Hepatitis: No Hx Cirrhosis: No Hx Anemia: No Hx Blood Disorders: No Reproduction : No Genitourinary Hx Renal Disease: No (kidney stone in the past) Hx Dialysis: No Musculoskeletal Hx Arthritis: Yes Hx Rheumatoid Arthritis: No Hx Gout: No Recent Onset of an Orthopedic Problem: No Endocrine Hx Diabetes: No Thyroid Disease: No Hx Steroid Therapy: No Psycho/Social Hx Substance Use: No Hx Alcohol Use: Yes (occassional) Hx Anxiety: Yes (situational) Hx Depression: No Mental Illness: No Hx Dementia: No Miscellaneous Hx Cancer: No Recent Exposure to Contagious Disease: No Hx of C-Diff: No Any Loose Teeth: No (dentures) Allergies No Known Allergies Allergy (Verified 09/22/24 07:06) Maternal: Family History Sister Colon cancer Diabetes Mother Colon cancer, Onset Age: 65 Father CAD (coronary artery disease) No pertinent history Discharge Is Pt Admitted From a Senior Care, or a Care Home: No After D/C, Where Do you Plan to Go: Return Home From the PAT History Number of Risk Factors: 3 Vital Signs Vital Signs Vital Signs: 09/22/24 07:06 09/22/24 07:06 Temperature 97.1 F L Temperature Source Temporal Pulse Rate 87 Respiratory Rate 16 Respiratory Pattern Normal Blood Pressure 168/86 H Blood Pressure Mean 113 Blood Pressure Source Monitor Blood Pressure Position Supine Blood Pressure Location Right Arm Pulse Ox 97 Oxygen Delivery Method Room Air Weight Weight: 271 lb 2.697 oz Body Mass Index (BMI) 37.8 Physical Exam Const alert, oriented x3 and no apparent distress HEENT normocephalic and head/scalp atraumatic Resp normal respiratory effort Cardio regular rate GI soft to palpation and non-tender; Negative for non-distended Palpation: Negative for guarding Extremity no clubbing, cyanosis or edema Skin no rashes or lesions noted Neuro CN's II-XII intact bilaterally Psych mental status grossly normal Assessment & Plan Assessment/Plan (1) S/P right hemicolectomy: (2) High 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
[2024-09-22] MEDS: Lactated Ringers 1,000 ML 15 ML IV (07:21)
--- NOTE | 2024-09-22 07:32 | PRE.ANES_ITS ---
ASA Classification* ASA Classification ASA Classification: 2 Assessment & Plan Anesthesia* Anesthesia Assessment Anesthesia Assessment: Discussed sedation and/or anesthesia options, risks, benefits, and alternatives with patient/parents/legal guardian/POA. Questions invited. The patient/parents/legal guardian/POA seems to understand and agrees to proceed with anesthesia plan. Reviewed the physical assessment, medical history, allergy history and patient home medications list prior to surgery/procedure/anesthetic and documented any changes. Performed airway and anesthesia risk assessments. Anesthesia Type Anesthesia Type: MAC History Source History Obtained from:: Patient and Chart Anesthesia Focused Assessment* Temperature: 97.1 F Pulse Rate: 87 Blood Pressure: 168/86 Respiratory Rate: 16 Pulse Ox: 97 Oxygen Delivery Method: Room Air Airway Assessment Mouth opens: >3 cm Mallampati Score: IV Teeth Condition: Dentures (Patient has full upper and lower dentures. They will stay in.) Neck Range of motion (ROM): Full ROM Labs Anesthesia Preop lab: CBC WBC 9.1 K/mm3 (4.4-11.0) 07/04/23 08:19 07/04/23 RBC 5.62 M/mm3 (4.6-6.2) 07/04/23 08:19 07/04/23 Hgb 17.0 g/dL (13.0-16.5) H 07/04/23 08:19 4 Hct 50.9 % (40-54) 07/04/23 08:19 07/04/23 Plt Count 172 K/mm3 (150-450) 07/04/23 08:19 07/04/23 CHEMISTRY Potassium 3.9 mmol/L (3.5-5.1) 07/04/23 08:19 07/04/23 Sodium 140 mmol/L (136-145) 07/04/23 08:19 07/04/23 Magnesium 2.2 mg/dL (1.6-2.6) 06/07/20 06:06/07/20 Phosphorus 3.1 mg/dL (2.5-4.9) 06/07/20 06:06/07/20 BUN 15 mg/dL (7-18) 07/04/23 08:19 07/04/23 Creatinine 0.96 mg/dL (0.70-1.30) 07/04/23 08:19 07/04/23 Glucose 152 mg/dL (74-106) H 07/04/23 08:19 07/04/23 POC Glucose 141 mg/dL (70-110) H 06/01/20 09:48 06/01/20 TSH 1.56 uIU/mL (0.358-3.74) 03/28/19 13:21 COAG Pre-Assessment Diagnosis/Proposed Procedure Planned Operative Procedure(s): CSCOPE OA Anesthesia History Anesthesia History - assistant counsel: Anesthesia History - assistant counsel Hx Hospitalization No 09/22/24 07:14 Any Problems With Anesthesia No 09/22/24 07:14 Cholinesterase deficiency No 09/22/24 07:14 You/Your Family Experience No 09/22/24 07:14 fever (hyperthermia) with Relationship Recent Exposure to Contagious No 09/22/24 07:14 Disease Does patient have nerve No 09/22/24 07:14 stimulator Patient instructed to have device shut off --Does patient have Pacemaker No 09/22/24 07:06 or ICD? When Was Last Pacemaker Check QUESTION #4 FULL TEXT: You/Your Family Experience fever (hyperthermia) with Anesthesia Last Oral Intake Last Oral intake: Last Oral Intake NPO since 23:00 09/22/24 07:06 Meds taken in AM with sips of Yes 09/22/24 07:06 water? Meds patient instructed to take am of surgery Any additional information?: Yes Meds taken in AM with sips of water?: Yes PONV PONV - assistant counsel: PONV - assistant counsel Female No 09/18/24 11:23 HX of Motion Sickness No 09/18/24 11:23 HX of N/V After Surgery No 09/18/24 11:23 Non-Smoker Yes 09/18/24 11:23 Duration of Surgery greater No 09/18/24 11:23 than 60 minutes Number of Risk Factors 1 09/18/24 11:23 PONV Score Low Risk 09/18/24 11:23 Height & Weight Height & Weight: Anesthesia: Height & Weight Height 5 ft 11 in 09/22/24 07:06 Weight: 123 kg 09/22/24 07:06 Body Mass Index (BMI) 37.8 09/22/24 07:06 Respiratory Assessment Respiratory Assessment - assistant counsel: Respiratory Tract Infection Hx - assistant counsel Hx Respiratory Tract Infection No 09/22/24 07:14 STOP Sleep Apnea STOP Sleep Apnea - assistant counsel: STOP Sleep Apnea - assistant counsel Hx Hypertension Yes: CONTROLLED WITH MED 09/22/24 07:14 Hx Sleep Apnea No 09/22/24 07:14 CPAP No 09/22/24 07:14 BIPAP Do you snore loudly (louder No 09/22/24 07:14 than talking or can be heard Do you often feel tired/ No 09/22/24 07:14 fatigued/ sleepy during daytime? Has anyone observed you stop No 09/22/24 07:14 breathing during sleep? STOP Results Negative 09/22/24 07:14 QUESTION #5 FULL TEXT : Do you snore loudly (louder than talking or can be heard through closed doors)? Tobacco Use History Tobacco Use History - assistant counsel: Tobacco Use History - assistant counsel Tobacco Use Smoking Status Former smoker 09/22/24 07:14 Hx Tobacco Use No 09/18/24 11:23 Years Smoking Packs Smoked per Day Smoking Cessation Date was Yes - quit smoking within 15 09/18/24 11:23 within the last 15 years years Hx Smoking Cessation Date 03/26/16 09/18/24 11:23 Hx Smoking Cessation Counseling Hematologic Medial History Hematologic Hx - assistant counsel: Hematologic Medical Hx - steam bone press tender Hx of Blood Transfusion No 09/18/24 11:23 Hx of Transfusion in last 3 No 09/18/24 11:23 Months Date of Last Transfusion (if within last 3 months) Ever experience any problems No 09/18/24 11:23 with transfusion(s)? Specify any problems Hx of Preganancy in last 3 N/A 09/18/24 11:23 Months Nurse Filling Out Transfusion DSCHRIBER 09/18/24 11:23 & Questions: Date: 09/18/24 09/18/24 11:23 Time: :09/18/24 11:23 Patient unable to answer at this time (ie. confused, unrespo /Reproduction History /Reproductive History - assistant counsel: /Reproductive Hx- assistant counsel Hx Now No 09/22/24 07:14 Gestational Age (in weeks): EDC: Hx Hx Para Hx Section SAB No 09/18/24 11:23 Active Medications Active Medications: Current Medications Generic Name Dose Route Start Last Admin Trade Name Freq PRN Reason Stop Dose Admin Lactated Ringer's 1,000 mls @ 15 mls/hr 09/22/24 07:00 09/22/24 07:21 IV 15 mls/hr .Q48H JOHN Administration PFSH Medical History Heartburn History of stress test Wears glasses Wears dentures Alcohol use Fatty liver Former smoker IBS (irritable bowel syndrome) Multiple thyroid nodules PMR (polymyalgia rheumatica) Home Medications ?Medication ?Instructions ?Recorded ?Last Taken ?Type Lactobacillus acidophilus 250 500 mmu cells PO DAILY 0 09/18/24 Unknown History million cell capsule (Probiotic Acidophilus) losartan 100 mg tablet 100 mg PO DAILY 09/18/24 05:30 History Allergy/AdvReac Type Severity Reaction Status Date / Time No Known Allergies Allergy Verified 09/22/24 07:06 Family History Sister Colon cancer Diabetes Mother Colon cancer, Onset Age: 65 Father CAD (coronary artery disease) Surgical History Hx of right hemicolectomy History of colonoscopy (~05/24/20) History of arthroscopy of right knee (~1980) Hx of appendectomy (~2017) Social History Smoking Status: Former smoker Review of Systems (Anesthesia) ROS Narrative System reviewed and no additional complaints, except as documented.
--- NOTE | 2024-09-22 08:00 | COLBX_PTH ---
PATIENT: SARAH PALMER LOC: EN U#:[id number] AGE/SX: 69/M ROOM: RE09/22/[address]: Dr. Rosalba Mack MD : 1955 BED: DIS: 09/22/2024 SPEC #: [id number] RECD: 09/22/24 11:17 STATUS: BENNY TERRI #: [id number] LISA: 09/22/24 08:[address]: Rosalba Mack DEPT: SURGICAL PATHOLOGY RECD BY: Natan Rhoades ENTERED: 09/22/24 13:59 SP TYPE: COLON BX OTHR DR: Dr. David Wagoner DO Tissues: A - COLON BIOPSY B - Rectum, NOS Procedures: Surgery Specimen Level IV HEADER OPERATION: Colonoscopy with polypectomy PRE-OP DIAGNOSIS: Status post right hemicolectomy, high grade dysplasia in colonic adenoma, tubulobvillous adenoma of colon, FH: colon cancer TISSUE SUBMITTED: A- Ileocecal anastomosis polyps x2, B- Rectal polyps x 4 (snare and biopsy) MICROSCOPIC DIAGNOSIS A. Ileocecal anastomosis, polyp x2, colon, biopsy: - Tubular adenoma x1. - Polypoid fragment of colonic mucosa distorted with cautery artifact; a second tubular adenoma cannot be ruled out. B. Rectum, polyp x4, biopsy: - Fragments of tubular adenoma and hyperplastic polyp. MICROSCOPIC DESCRIPTION Slides are reviewed. GROSS DESCRIPTION A. Received in fixative is one container labeled with the patient's name and designated Ileocolic anastomosis polyps x2. The specimen consists of one irregular fragment of light almanzar soft tissue that measures 0.5 cm. The specimen is totally submitted in one cassette. B. Received in fixative is one container labeled with the patient's name and designated Rectal polyps x4. The specimen consists of multiple irregular fragments of light almanzar soft tissue that in aggregate measure 0.1 to 0.4 cm. The specimen is totally submitted in one cassette. SULLY/ 09/22/2024 CPT:[id number]
--- NOTE | 2024-09-22 08:39 | OP.COLON_ITS ---
Patient Name: Alphonso Yancey Procedure Date: 09/22/2024 8:02 AM Date of : 1955 Age: 69 Procedure: Colonoscopy Indications: High risk colon cancer surveillance: Personal history of adenoma with high grade dysplasia, High risk colon cancer surveillance: Personal history of adenoma with villous component, Family history of colon cancer in multiple first-degree relatives Providers: Rosalba Mack MD Referring MD: David Wagoner Medicines: Monitored Anesthesia Care Patient Profile: This is a 69 year old male. Last Colonoscopy: July 2021. Complications: No immediate complications. Procedure: Pre-Anesthesia Assessment: - Prior to the procedure, a History and Physical was performed, and patient medications and allergies were reviewed. The patient's tolerance of previous anesthesia was also reviewed. The risks and benefits of the procedure and the sedation options and risks were discussed with the patient. All questions were answered, and informed consent was obtained. Prior Anticoagulants: The patient has taken no anticoagulant or antiplatelet agents. ASA Grade Assessment: Per anesthesia. After reviewing the risks and benefits, the patient was deemed in satisfactory condition to undergo the procedure. After I obtained informed consent, the scope was passed under direct vision. Throughout the procedure, the patient's blood pressure, pulse, and oxygen saturations were monitored continuously. The colonoscope was introduced through the anus and advanced to the ileocolonic anastomosis. The colonoscopy was performed without difficulty. The patient tolerated the procedure well. The quality of the bowel preparation was good. Scope In: 8:08:51 AM Scope Withdrawal Time 0 hours 14 minutes 48 seconds Scope Out: 8:28:20 AM Total Procedure Duration Time 0 hours 19 minutes 29 seconds Findings: The perianal and digital rectal examinations were normal. Two semi-sessile polyps were found in the anastomosis. The polyps were less than 5 mm in size. These polyps were removed with a hot snare. Resection and retrieval were complete. A less than 5 mm polyp was found in the rectum. The polyp was semi-pedunculated. The polyp was removed with a hot snare. Resection and retrieval were complete. Three sessile polyps were found in the rectum. The polyps were less than 5 mm in size. These polyps were removed with a cold biopsy forceps. Resection and retrieval were complete. Ileocolonic anastomosis widely patent. Impression: - Two less than 5 mm polyps at the anastomosis, removed with a hot snare. Resected and retrieved. - One less than 5 mm polyp in the rectum, removed with a hot snare. Resected and retrieved. - Three less than 5 mm polyps in the rectum, removed with a cold biopsy forceps. Resected and retrieved. Recommendation: - Discharge patient to home. - Resume previous diet. - Continue present medications. - Await pathology results. - Repeat colonoscopy in 2 years for surveillance based on pathology results. Procedure Code(s): --- Professional --- 95285, PT, Colonoscopy, flexible; with removal of tumor(s), polyp(s), or other lesion(s) by snare technique 13172, 59, Colonoscopy, flexible; with biopsy, single or multiple Diagnosis Code(s): --- Professional --- D12.6, Benign neoplasm of colon, unspecified D12.8, Benign neoplasm of rectum Z86.010, Personal history of colonic polyps Z80.0, Family history of malignant neoplasm of digestive organs CPT copyright 2021 [employer]. All rights reserved. The codes documented in this report are preliminary and upon professional fee coder review may be revised to meet current compliance requirements. MD Rosalba Williamson MD 09/22/2024 8:39:09 AM This report has been signed electronically. Number of Addenda: 0 Note Initiated On: 09/22/2024 8:02 AM
--- NOTE | 2024-09-22 08:40 | OP.CCLET_ITS ---
09/22/2024 David Wagoner [address] [place] [address] Re : Colonoscopy procedure for Alphonso Yancey Dear Dr. Wagoner This procedure was performed on Sunday, September 22, 2024. My impressions and recommendations are as follows: Impressions : - Two less than 5 mm polyps at the anastomosis, removed with a hot snare. Resected and retrieved. - One less than 5 mm polyp in the rectum, removed with a hot snare. Resected and retrieved. - Three less than 5 mm polyps in the rectum, removed with a cold biopsy forceps. Resected and retrieved. Recommendations : - Discharge patient to home. - Resume previous diet. - Continue present medications. - Await pathology results. - Repeat colonoscopy in 2 years for surveillance based on pathology results. My findings are described in the full procedure note, which is enclosed. If I can be of further assistance, please feel free to contact me at Doctor phone number(s): , Work: . Sincerely, MD Rosalba Williamson MD 09/22/2024 8:39:09 AM This report has been signed electronically.
--- NOTE | 2024-09-22 08:40 | PCM.POST.ANE ---
Anesthesia: Postop Eval I Current Vital Signs Temperature: 98.3 F Pulse Rate: 98 Blood Pressure: 111/74 Respiratory Rate: 16 Pulse Ox: 93 Oxygen Delivery Method: Room Air Assessment Airway patent: Yes Spontaneous unlabored respirations: Yes Mental status: Awake and Calm nausea: No Vomiting: No Anesthesia Complication: No Fluid Hydration Crystalloid volume administer (ml): 600 Total IV fluid infused: 600 Progress Note Anesthesia document: Postop Eval 1 completed: Yes
--- NOTE | 2024-09-22 10:44 | POSTOPAN2_ITS ---
Anesthesia Postop Eval I Sum Postop Eval Completion status Anesthesia document: Postop Eval 1 completed: Yes Anesthesia Postop Eval I Summary Anesthesia Postop Eval I Summary: Anesthesia Postop Eval I: Assessment Summary Airway patent Yes 09/22/24 08:41 [employer]IL [email or web address] [email or web address] Spontaneous unlabored Yes 09/22/24 08:41 SOIL FERTILITY [email or web address] respirations Mental status Awake,Calm 09/22/24 08:41 SOIL [email or web address] [email or web address] nausea No 09/22/24 08:41 SOIL FERTILITY [email or web address] Vomiting No 09/22/24 08:41 SOIL FERTILITY [email or web address] Anesthesia Postop Eval I: Fluid Summary Crystalloid volume administer 600 09/22/24 08:41 SOIL [email or web address] [email or web address] (ml) Colloids volume administered ( ml) Blood Product volume administered (ml) Total IV fluid infused 600 09/22/24 08:41 SOIL FERTILITY [email or web address] Anesthesia Postop Eval I: Summary Notes Anesthesia Complication No 09/22/24 08:41 SOIL [email or web address] [email or web address] Anesthesia Complication Comment: Post-operative progress note Anesthesia: Postop Eval II Evaluation Mental status: Awake Pain Level: 0 nausea: No Vomiting: No
--- NOTE | 2024-09-22 10:44 | PCM.POSTANE2 ---
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 Spontaneous unlabored Yes 09/22/24 08:41 FAN [email or web address] [email or web address] respirations Mental status Awake,Calm 09/22/24 08:41 [email or web address] nausea No 09/22/24 08:41 FAN BLADE [email or web address] Vomiting No 09/22/24 08:41 FAN [email or web address] [email or web address] Anesthesia Postop Eval I: Fluid Summary Crystalloid volume administer 600 09/22/24 08:41 [email or web address] (ml) Colloids volume administered ( ml) Blood Product volume administered (ml) Total IV fluid infused 600 09/22/24 08:41 FAN [email or web address] [email or web address] Anesthesia Postop Eval I: Summary Notes Anesthesia Complication No 09/22/24 08:41 FAN [email or web address] [email or web address] Anesthesia Complication Comment: Post-operative progress note Anesthesia: Postop Eval II Evaluation Mental status: Awake Pain Level: 0 nausea: No Vomiting: No
== END 2024-09-22 09:17 | disposition home or self-care (01) ==
LOC: EN 06:39 → AC 06:41
PROVIDERS: PCP Family Medicine; Referring Provider Family Medicine; Visit Provider Surgery
PROC: 0DJD8ZZ Inspection of Lower Intestinal Tract, Via Natural or Artificial Opening Endoscopic (ICD-10-PCS; CPT 45378; principal; 2024-09-22 07:55)
DX: Z12.11 Encounter for screening for malignant neoplasm of colon (principal); D12.0 Benign neoplasm of cecum; D12.8 Benign neoplasm of rectum; I10 Essential (primary) hypertension; K58.9 Irritable bowel syndrome, unspecified; Z80.0 Family history of malignant neoplasm of digestive organs; Z86.0101 Personal history of adenomatous and serrated colon polyps; Z90.49 Acquired absence of other specified parts of digestive tract; Z79.899 Other long term (current) drug therapy; Z87.891 Personal history of nicotine dependence
CPT/HCPCS: 45385; 45380; 88305; J2405

== ENCOUNTER → 2025-03-03 | Outpatient (CLI) | payer MEDICARE, OTHER, SELFPAY ==
[2025-03-03 15:06] LABS: Hematocrit 49.5 % (40-54); Hemoglobin 16.5 g/dL (13.0-16.5); Immature Granulocytes Count 0.040 X10^3/uL (0.0-0.0); Mean Corp Hgb Conc 33.3 g/dL (32-36); Mean Corpuscular Volume 90.2 fL (80-94); Mean Platelet Vol. 10.7 fl (6.2-12.0); NRBC Flagged by Analyzer 0 % (0-5); Platelet Count 189 K/mm3 (150-450); RBC Distribution Width CV 12.5 % (11.6-14.6); RBC Distribution Width SD 41.2 fl (35.1-43.9); Red Blood Count 5.49 M/mm3 (4.6-6.2); White Blood Count 7.6 K/mm3 (4.4-11.0)
[2025-03-03 15:57] LABS: AST(SGOT) 25 U/L (<=37); Alanine Aminotransfer ALT/SGPT 46 U/L (<=46); Albumin, Serum 4.4 g/dL (3.4-4.8); Alkaline Phosphatase 82 U/L (40-129); Anion Gap 13 (5-15); BUN 13 mg/dL (4-19); BUN/Creat Ratio 15.8 RATIO (10-20); Calcium,Total 9.4 mg/dL (7.6-11.0); Carbon Dioxide 24.2 mmol/L (21.0-32.0); Chloride 104 mmol/L (98-108); Cholesterol 165 mg/dL (<=200); Globulin 2.9 g/dL (2.2-4.2); Glucose 105 mg/dL (70-99); Low Density Lipoprotein Calc. 101 mg/dL; PSA,Total - Annual Screen 0.72 ng/mL (0.02-4.00); Potassium 4.3 mmol/L (3.3-5.1); Triglycerides 121 mg/dL; Very Low Density Lipoprotein 24 mg/dL (5-40); cholesterol:hdl ratio screen 3.88
== END | disposition home or self-care (01) ==
LOC: BFHLAB 13:25
PROVIDERS: PCP Family Medicine; Visit Provider Family Medicine
DX: E78.5 Hyperlipidemia, unspecified (principal); E04.2 Nontoxic multinodular goiter; I10 Essential (primary) hypertension; Z12.5 Encounter for screening for malignant neoplasm of prostate
CPT/HCPCS: 36415; 80053; 80061; 84153; 84439; 84443; 85025; G0103

== ENCOUNTER → 2025-03-09 | Outpatient (CLI) | payer MEDICARE, OTHER, BC, SELFPAY ==
--- NOTE | 2025-03-09 11:52 | US_ITS ---
PROCEDURE: THYROID 03/09/2025 REASON FOR EXAM: ENLARGED LYMPH NODES TECHNIQUE: Procedure Code: USTHY Modality: US Procedure: THYROID COMPARISON: July 28, 2023. FINDINGS: Right thyroid lobe size: 5 cm x 2.1 cm x 1.9 cm Left thyroid lobe size: 5.1 cm x 1.9 cm 1.5 cm Isthmus: 0.4 cm Background parenchymal echotexture is homogeneous. Nodules: . Lobe: Right, Location: Inferior pole, Size: 1.6 cm 1.2 cm x 1 cm, Stability: Stable Composition: Mixed cystic and solid (+1) Echogenicity: Hypoechoic (+2) Margin: Smooth (+0) Shape: Wider than tall (+0) Echogenic Foci: None (+0) TI-RADS: 3 . Lobe: Right, Location: Upper pole, Size: 0.7 cm x 0.4 cm x 0.3 cm, Stability: Stable Composition: Mixed cystic and solid (+1) Echogenicity: Hypoechoic (+2) Margin: Smooth (+0) Shape: Wider than tall (+0) Echogenic Foci: None (+0) TI-RADS: 3 Complex nodule in the upper pole of the left lobe of the thyroid measuring 1.6 cm 1.2 cm x 0.9 cm. Tie rads: 3 Complex 1 cm x 0.9 cm x 0.6 cm complex nodule in the midpole of the left lobe. Tie rads: 3 Complex nodule in the lower pole of the left lobe measuring 4 mm x 5 mm x 4 mm. Tie rads: 3 US/Thyroid IMPRESSION: Stable examination with multiple complex nodules in both lobes. RECOMMENDATION: Based on most suspicious nodule. Nodule size = largest diameter Only evaluate nodule if =>5 mm. Growth > 20% in 2 dimensions = worsening. Follow up to 4 nodules. Recommend biopsy for no more than 2 nodules. Reading Location: [facility]
--- NOTE | 2025-03-09 11:52 | US_ITS ---
PROCEDURE: HEAD/NECK SOFT TISSUE 03/09/2025 REASON FOR EXAM: ENLARGED LYMPH NODES TECHNIQUE: Procedure Code: USH/N SOFT Modality: US Procedure: HEAD/NECK SOFT TISSUE COMPARISON: None FINDINGS: In the lateral aspect of the left cervical region, there is a 1.6 cm 0.8 cm x 0.5 cm abnormal appearing lymph node. This corresponds with the palpable abnormality. Biopsy recommended. US/Head/Neck Soft Tissue IMPRESSION: The palpable abnormality corresponds to a 1.6 cm 0.8 cm 0.5 cm abnormal appeari ng lymph node. Tissue sampling is recommended. Reading Location: [id number]
== END | disposition home or self-care (01) ==
LOC: US 11:48
PROVIDERS: PCP Family Medicine; Referring Provider Nurse Practitioner Family; Visit Provider Nurse Practitioner Family
DX: E04.2 Nontoxic multinodular goiter (principal); R59.1 Generalized enlarged lymph nodes
CPT/HCPCS: 76536

== ENCOUNTER → 2025-03-17 | Outpatient (CLI) | payer MEDICARE, OTHER, BC, SELFPAY ==
--- NOTE | 2025-03-17 10:28 | US_ITS ---
PROCEDURE: HEAD/NECK SOFT TISSUE 03/17/2025 REASON FOR EXAM: PALPABLE LUMP LT NECK TECHNIQUE: Procedure Code: USH/N SOFT Modality: US Procedure: HEAD/NECK SOFT TISSUE COMPARISON: 09 March 2025 FINDINGS: Sonographic evaluation of the lateral aspect of the supraclavicular region of the left neck at the patient's described region of interest demonstrates 2 hypoechoic, reniform masses with echogenic, vascular laisha measuring 1.5 x 0.6 x 0.5 cm and 1.3 x 0.7 x 0.4 cm with normal cortical thickness. The previous abnormal lymph node likely corresponding to reactive lymphadenopathy from an ear infection as suggested by provided history. US/Head/Neck Soft Tissue IMPRESSION: No evidence of left cervical lymphadenopathy based on morphology and size. Reading Location: [id number]
== END | disposition home or self-care (01) ==
PROVIDERS: PCP Family Medicine; Referring Provider Nurse Practitioner Family; Visit Provider Nurse Practitioner Family
DX: E04.2 Nontoxic multinodular goiter (principal); R59.1 Generalized enlarged lymph nodes
CPT/HCPCS: 76536